=== PATIENT | female | born 1955 | race African-American/Black ===

== ENCOUNTER 2019-02-08 21:21 | Inpatient (IN) | payer MEDICAID ==
[~2019-02-08] VITALS: Ht 175.3 cm; Wt 181.4 kg
[~2019-02-08 21:21] MED LIST: ABILIFY2 MG ORAL; ACTOS30 MG ORAL; AMIODARONE HCL200 MG ORAL; AMITRIPTYLINE H10 MG ORAL; AMLODIPINE BESY10 MG ORAL; ASPIR 8181 MG ORAL; ATORVASTATIN CA10 MG ORAL; BENAZEPRIL HCL10 MG ORAL; CLOPIDOGREL75 MG ORAL; METHIMAZOLE5 MG PO; METOPROLOL TART50 M1 ORAL; PROAIR HFA8.5 GM INH; SPIRONOLACTONE25 MG ORAL; THIOTHIXENE10 MG PO; TYLENOL650 MG/20. ORAL
--- NOTE | 2019-02-08 21:26 | Emergency Room Report ---
History of Present Illness General Chief Complaint: General Complaint Source: Patient Present Illness HPI Patient is a 63-year-old female brought in by EMS after increased generalized weakness and body aches. Patient had recent episodes of nausea and diarrhea. Patient had prior history of diabetes as well as CVA. She been having multiple diarrheal stools. Patient was noted to be type II diabetic and is oral hypoglycemic agents. Patient was brought in by EMS. She had been started on IV fluids. She had prior history of hypertension Allergies: Coded Allergies: No Known Allergies (Unverified , 02/01/15) Patient History Past Medical History: see triage record Reviewed Nursing Documentation: PMH: Agreed; PSxH: Agreed Nursing Documentation-PMH Past Medical History: No History, Except For Hx Cardiac Problems: Yes Hx Hypertension: Yes Hx Asthma: Yes Hx COPD: Yes Hx Diabetes: Yes Hx Cancer: No Hx Gastrointestinal Problems: Yes Hx Neurological Problems: Yes Hx Cerebrovascular Accident: Yes - over 5 years ago Review of Systems All Other Systems: negative except mentioned in HPI Physical Exam Vital Signs Date Time Temp Pulse Resp B/P (MAP) Pulse Ox O2 Delivery O2 Flow Rate FiO2 02/08/19 21:16 98.4 85 18 105/66 (79) 96 Room Air General Appearance: alert, GCS 15, obese ENT: moist mucus membranes Neck: normal inspection Respiratory: normal inspection Cardiovascular #1: normal inspection, normal peripheral pulses, regular rate, rhythm Neurologic: normal inspection, alert, oriented x3, responsive, inpatient auditor III-XII nml as tested, speech normal, motor weakness - left leg Psychiatric: normal inspection Skin: normal inspection Medical Decision Making Diagnostic Impression: Primary Impression: Dehydration Additional Impressions: Diarrhea Morbid obesity with BMI of 50.0-59.9, adult Laboratory Tests Test 02/08/19 21:35 02/08/19 22:01 02/09/19 03:55 02/09/19 12:45 White Blood Count 11.7 K/UL (4.8-10.8) H 11.6 K/UL (4.8-10.8) H Red Blood Count 4.16 M/UL (4.20-5.40) L 4.02 M/UL (4.20-5.40) L Hemoglobin 10.7 G/DL (12.0-16.0) L 10.6 G/DL (12.0-16.0) L Hematocrit 35.2 % (37.0-47.0) L 34.4 % (37.0-47.0) L Mean Corpuscular Volume 85 FL (80-99) 86 FL (80-99) Mean Corpuscular Hemoglobin 25.7 PG (27.0-31.0) L 26.4 PG (27.0-31.0) L Mean Corpuscular Hemoglobin Concent 30.3 G/DL (32.0-36.0) L 30.8 G/DL (32.0-36.0) L Red Cell Distribution Width 16.9 % (11.6-14.8) H 17.2 % (11.6-14.8) H Platelet Count 188 K/UL (150-450) 183 K/UL (150-450) Mean Platelet Volume 8.6 FL (6.5-10.1) 9.1 FL (6.5-10.1) Neutrophils (%) (Auto) 58.1 % (45.0-75.0) 60.6 % (45.0-75.0) Lymphocytes (%) (Auto) 26.4 % (20.0-45.0) 26.1 % (20.0-45.0) Monocytes (%) (Auto) 9.5 % (1.0-10.0) 8.2 % (1.0-10.0) Eosinophils (%) (Auto) 4.2 % (0.0-3.0) H 4.5 % (0.0-3.0) H Basophils (%) (Auto) 1.9 % (0.0-2.0) 0.6 % (0.0-2.0) Sodium Level 142 MMOL/L (136-145) 139 MMOL/L (136-145) Potassium Level 3.6 MMOL/L (3.5-5.1) 3.6 MMOL/L (3.5-5.1) Chloride Level 105 MMOL/L (98-107) 105 MMOL/L (98-107) Carbon Dioxide Level 33 MMOL/L (21-32) H 28 MMOL/L (21-32) Anion Gap 4 mmol/L (5-15) L 6 mmol/L (5-15) Blood Urea Nitrogen 21 mg/dL (7-18) H 18 mg/dL (7-18) Creatinine 1.3 MG/DL (0.55-1.30) 1.0 MG/DL (0.55-1.30) Estimate Glomerular Filtration Rate 50.1 mL/min (>60) > 60 mL/min (>60) Glucose Level 107 MG/DL (74-106) H 92 MG/DL (74-106) Lactic Acid Level 1.30 mmol/L (0.4-2.0) Calcium Level 8.3 MG/DL (8.5-10.1) L 8.2 MG/DL (8.5-10.1) L Total Bilirubin 0.4 MG/DL (0.2-1.0) 0.3 MG/DL (0.2-1.0) Aspartate Amino Transferase (AST) 13 U/L (15-37) L 13 U/L (15-37) L Alanine Aminotransferase (ALT) 26 U/L (12-78) 20 U/L (12-78) Alkaline Phosphatase 66 U/L (46-116) 67 U/L (46-116) Total Creatine Kinase 18 U/L (26-308) L Creatine Kinase MB 0.5 NG/ML (0.0-3.6) Creatine Kinase MB Relative Index 2.7 Troponin I 0.001 ng/mL (0.000-0.056) 0.001 ng/mL (0.000-0.056) Total Protein 6.9 G/DL (6.4-8.2) 6.6 G/DL (6.4-8.2) Albumin 2.4 G/DL (3.4-5.0) L 2.4 G/DL (3.4-5.0) L Globulin 4.5 g/dL 4.2 g/dL Albumin/Globulin Ratio 0.5 (1.0-2.7) L 0.6 (1.0-2.7) L Urine Color Yellow Urine Appearance Slightly cloudy Urine pH 5 (4.5-8.0) Urine Specific [place] 1.020 (1.005-1.035) Urine Protein 2+ (NEGATIVE) H Urine Glucose (UA) Negative (NEGATIVE) Urine Ketones Negative (NEGATIVE) Urine Blood 1+ (NEGATIVE) H Urine Nitrite Negative (NEGATIVE) Urine Bilirubin Negative (NEGATIVE) Urine Urobilinogen Normal MG/DL (0.0-1.0) Urine Leukocyte Esterase 1+ (NEGATIVE) H Urine RBC 0-2 /HPF (0 - 2) Urine WBC 5-10 /HPF (0 - 2) H Urine Squamous Epithelial Cells Moderate /LPF (NONE/OCC) H Urine Bacteria Moderate /HPF (NONE) H Thyroid Stimulating Hormone (TSH) 1.383 uiU/mL (0.358-3.740) EKG Diagnostic Results Rate: normal Rhythm: NSR ST Segments: no acute changes Last Vital Signs Date Time Temp Pulse Resp B/P (MAP) Pulse Ox O2 Delivery O2 Flow Rate FiO2 02/08/19 21:16 98.4 85 18 105/66 (79) 96 Room Air Status: improved Disposition: ADMITTED INPATIENT Condition: Serious Raj Mays MD Feb 08, 2019 21:26
[2019-02-08 21:51] LABS: BASOPHILS % (AUTO) 1.9 % (0.0-2.0); EOSINOPHILS % (AUTO) 4.2 % (0.0-3.0); HEMATOCRIT 35.2 % (37.0-47.0); HEMOGLOBIN 10.7 G/DL (12.0-16.0); LYMPHOCYTES % (AUTO) 26.4 % (20.0-45.0); MEAN CORPUSCULAR VOLUME 85 FL (80-99); MONOCYTES % (AUTO) 9.5 % (1.0-10.0); NEUTROPHILS % (AUTO) 58.1 % (45.0-75.0); PLATELET COUNT 188 K/UL (150-450); RED BLOOD COUNT 4.16 M/UL (4.20-5.40); RED CELL DISTRIBUTION WIDTH 16.9 % (11.6-14.8); WHITE BLOOD COUNT 11.7 K/UL (4.8-10.8)
[2019-02-08 21:59] LABS: ANION GAP 4 mmol/L (5-15); BLOOD UREA NITROGEN 21 mg/dL (7-18); CALCIUM 8.3 MG/DL (8.5-10.1); CARBON DIOXIDE 33 MMOL/L (21-32); CHLORIDE 105 MMOL/L (98-107); CREATININE 1.3 MG/DL (0.55-1.30); POTASSIUM 3.6 MMOL/L (3.5-5.1); SODIUM 142 MMOL/L (136-145)
[2019-02-08 22:12] LABS: APPEARANCE,URINE SLIGHTLY CLOUDY; BILIRUBIN, URINE NEGATIVE (NEGATIVE); GLUCOSE, URINE (UA) NEGATIVE (NEGATIVE); KETONES,URINE NEGATIVE (NEGATIVE); LEUKOCYTE ESTERASE ,URINE 1+ (NEGATIVE); NITRITE,URINE NEGATIVE (NEGATIVE); PH,URINE 5 (4.5-8.0); PROTEIN,URINE 2+ (NEGATIVE); UROBILINOGEN,URINE NORMAL MG/DL (0.0-1.0)
[2019-02-08 22:14] LABS: COLOR,URINE YELLOW
[2019-02-08 22:20] LABS: ALANINE AMINOTRANSFERASE 26 U/L (12-78); ALBUMIN 2.4 G/DL (3.4-5.0); ALBUMIN/GLOBULIN RATIO 0.5 (1.0-2.7); ALKALINE PHOSPHATASE 66 U/L (46-116); ASPARTATE AMINO TRANSFERASE 13 U/L (15-37); BILIRUBIN,TOTAL 0.4 MG/DL (0.2-1.0); CKMB 0.5 NG/ML (0.0-3.6); CREATINE KINASE 18 U/L (26-308)
[2019-02-08] MEDS ORDERED: D5 1/2NS w/KCl 20mEq 1,000 ML IV SCH (22:30)
[2019-02-08 22:55] VITALS: BP 105/66
--- NOTE | 2019-02-08 22:55 | NUR ---
ER Nurse Note: Pt BIBA from home c/o flu like symptoms since a few weeks. Pt a&ox4, VSS, no signs of acute distress. Pt stated she has generalized body pain, cough, chest pain related to cough. Pt stated she cannot walk; bed bound. IV established by EMS; patent. Skin intact. All safety measures met; will conitnue to monitor.
[2019-02-09] VITALS (7 sets, daily range): BP systolic 107–137; BP diastolic 55–72
[2019-02-09] MEDS ORDERED: cefTRIAXone 1 GM in NS 55 ML IVPB ONE (00:30)
--- NOTE | 2019-02-09 00:30 | NUR ---
ER Nurse Note: All orders completed per ERMD orders. Phone was provided to pt; pt called family. All safety measures met; will continue to monitor.
--- NOTE | 2019-02-09 01:12 | NUR ---
NURSE NOTES: Patient brought up from ER to [facility] rm 241-1 via stretcher accompanied by PEPPER Soriano and lidar technician. Routine Admission care provided. Patient is alert, verbally responsive, able to make needs known. denies any pain at this time. On room air with Sp02 98%. Bed is in lowest position. Placed purewick to patient and educted on how it works. IV site noted to right AC 18G and is intact. Call light is within easy reach. Will continue to monitor.
--- NOTE | 2019-02-09 01:15 | NUR ---
ER Nurse Note: Report given to PEPPER Ware in SDU for continuity of care. Pt a&ox4, VSS, no signs of distress. All belongings taken.
[2019-02-09] MEDS: Acetaminophen 500mg (ES) tab ORAL PRN ×2 (05:16→14:43)
[2019-02-09 05:42] LABS: BASOPHILS % (AUTO) 0.6 % (0.0-2.0); EOSINOPHILS % (AUTO) 4.5 % (0.0-3.0); HEMATOCRIT 34.4 % (37.0-47.0); HEMOGLOBIN 10.6 G/DL (12.0-16.0); LYMPHOCYTES % (AUTO) 26.1 % (20.0-45.0); MEAN CORPUSCULAR VOLUME 86 FL (80-99); MONOCYTES % (AUTO) 8.2 % (1.0-10.0); NEUTROPHILS % (AUTO) 60.6 % (45.0-75.0); PLATELET COUNT 183 K/UL (150-450); RED BLOOD COUNT 4.02 M/UL (4.20-5.40); RED CELL DISTRIBUTION WIDTH 17.2 % (11.6-14.8); WHITE BLOOD COUNT 11.6 K/UL (4.8-10.8)
[2019-02-09 06:26] LABS: ALANINE AMINOTRANSFERASE 20 U/L (12-78); ALBUMIN 2.4 G/DL (3.4-5.0); ALBUMIN/GLOBULIN RATIO 0.6 (1.0-2.7); ALKALINE PHOSPHATASE 67 U/L (46-116); ANION GAP 6 mmol/L (5-15); ASPARTATE AMINO TRANSFERASE 13 U/L (15-37); BILIRUBIN,TOTAL 0.3 MG/DL (0.2-1.0); BLOOD UREA NITROGEN 18 mg/dL (7-18); CALCIUM 8.2 MG/DL (8.5-10.1); CARBON DIOXIDE 28 MMOL/L (21-32); CHLORIDE 105 MMOL/L (98-107); POTASSIUM 3.6 MMOL/L (3.5-5.1); SODIUM 139 MMOL/L (136-145)
--- NOTE | 2019-02-09 07:40 | NUR ---
NURSE NOTES: Received report PEPPER [place],patient asleep,arousable,head 30 degrees,on IV NS 75 ml/hr,patient had diarrhea at home,here for Dehydration,NPO
--- NOTE | 2019-02-09 07:40 | NUR ---
HAND-OFF: Report given to PEPPER Lopez .
--- NOTE | 2019-02-09 08:25 | NUR ---
NURSE NOTES: Dr. Arce called will see patient,patient no diarrhea,denies nausea
--- NOTE | 2019-02-09 08:29 | NUR ---
NURSE NOTES: Dr. Durant visited patient
--- NOTE | 2019-02-09 09:20 | General Progress Note ---
Assessment/Plan Problem List: (1) Anemia ICD Codes: D64.9 - Anemia, unspecified SNOMED: 828753035 (2) Diarrhea ICD Codes: R19.7 - Diarrhea, unspecified SNOMED: 48741894 (3) Hypertension ICD Codes: I10 - Essential (primary) hypertension SNOMED: 91900985 (4) Morbid obesity with BMI of 50.0-59.9, adult ICD Codes: E66.01 - Morbid (severe)obesity due to excess calories; Z68.43 - Body mass index (bmi) 50-59.9 , adult SNOMED: 465766411 (5) Tobacco abuse ICD Codes: Z72.0 - Tobacco use SNOMED: 56539698 (6) Diabetes ICD Codes: E11.9 - Type 2 diabetes mellitus without complications SNOMED: 57100411 Assessment/Plan: stool studies Anemia work up advance diet fu cardiology recs GI procedures if needed Subjective ROS Limited/Unobtainable: Yes Allergies: Coded Allergies: No Known Allergies (Unverified , 02/01/15) Objective Last 24 Hour Vital Signs Date Time Temp Pulse Resp B/P (MAP) Pulse Ox O2 Delivery O2 Flow Rate FiO2 02/09/19 04:00 Room Air 02/09/19 04:00 97.5 63 20 131/55 (80) 96 02/09/19 01:53 66 02/09/19 01:51 Room Air 02/09/19 01:25 98.1 68 20 107/66 (80) 98 02/09/19 01:15 98.4 60 18 108/61 98 Room Air 02/09/19 01:15 98.4 60 18 108/61 98 Room Air 02/08/19 22:55 98.4 85 18 105/66 96 Room Air 02/08/19 22:55 85 18 Room Air 02/08/19 21:16 98.4 85 18 105/66 (79) 96 Room Air Intake and Output 02/08/19 02/09/19 19:00 07:00 Intake Total 4323.75 ml Balance 4323.75 ml Intake IV Total 4323.75 ml # Voids 4 Laboratory Tests 02/08/19 21:35: White Blood Count 11.7H, Red Blood Count 4.16L, Hemoglobin 10.7L, Hematocrit 35.2L, Mean Corpuscular Volume 85, Mean Corpuscular Hemoglobin 25.7L, Mean Corpuscular Hemoglobin Concent 30.3L, Red Cell Distribution Width 16.9H, Platelet Count 188, Mean Platelet Volume 8.6, Neutrophils (%) (Auto) 58.1, Lymphocytes (%) (Auto) 26.4, Monocytes (%) (Auto) 9.5, Eosinophils (%) (Auto) 4.2H, Basophils (%) (Auto) 1.9, Sodium Level 142, Potassium Level 3.6, Chloride Level 105, Carbon Dioxide Level 33H, Anion Gap 4L, Blood Urea Nitrogen 21H, Creatinine 1.3, Estimat Glomerular Filtration Rate 50.1, Glucose Level 107H, Lactic Acid Level 1.30, Calcium Level 8.3L, Total Bilirubin 0.4, Aspartate Amino Transf (AST/SGOT) 13L, Alanine Aminotransferase (ALT/SGPT) 26, Alkaline Phosphatase 66, Total Creatine Kinase 18L, Creatine Kinase MB 0.5, Creatine Kinase MB Relative Index 2.7, Troponin I 0.001, Total Protein 6.9, Albumin 2.4L , Globulin 4.5, Albumin/Globulin Ratio 0.5L 02/08/19 22:01: Urine Color Yellow, Urine Appearance Slightly cloudy, Urine pH 5, Urine Specific [place] 1.020, Urine Protein 2+H, Urine Glucose (UA) Negative, Urine Ketones Negative, Urine Blood 1+H, Urine Nitrite Negative, Urine Bilirubin Negative, Urine Urobilinogen Normal, Urine Leukocyte Esterase 1+H, Urine RBC 0-2 , Urine WBC 5-10H, Urine Squamous Epithelial Cells ModerateH, Urine Bacteria ModerateH 02/09/19 03:55: White Blood Count 11.6H, Red Blood Count 4.02L, Hemoglobin 10.6L, Hematocrit 34.4L, Mean Corpuscular Volume 86, Mean Corpuscular Hemoglobin 26.4L, Mean Corpuscular Hemoglobin Concent 30.8L, Red Cell Distribution Width 17.2H, Platelet Count 183, Mean Platelet Volume 9.1, Neutrophils (%) (Auto) 60.6, Lymphocytes (%) (Auto) 26.1, Monocytes (%) (Auto) 8.2, Eosinophils (%) (Auto) 4.5H, Basophils (%) (Auto) 0.6, Sodium Level 139, Potassium Level 3.6, Chloride Level 105, Carbon Dioxide Level 28, Anion Gap 6, Blood Urea Nitrogen 18, Creatinine 1.0, Estimat Glomerular Filtration Rate > 60, Glucose Level 92, Calcium Level 8.2L, Total Bilirubin 0.3, Aspartate Amino Transf (AST/SGOT) 13L, Alanine Aminotransferase (ALT/SGPT) 20, Alkaline Phosphatase 67, Total Protein 6.6, Albumin 2.4L, Globulin 4.2, Albumin/Globulin Ratio 0.6L Height (Feet): 5 Height (Inches): 9.00 Weight (Pounds): 400 General Appearance: alert EENT: normal ENT inspection Neck: supple Cardiovascular: normal rate Respiratory/Chest: decreased breath sounds Abdomen: normal bowel sounds, non tender, soft Extremities: non-tender Faisal Durant MD Feb 09, 2019 09:20
--- NOTE | 2019-02-09 10:47 | NUR ---
CASE MANAGEMENT: INITIAL REVIEW 63 YO F YVETTE FROM HOME CC: FLU LIKE SYMPTOMS PMHx: HTN. ASTHMA. COPD. DM. CVA. SI:DEHYDRATION T 98.4 HR 85 RR 18 B/P 105/66 SATS 96% ON RA WBC 11.7 CO2 33 BUN 21 GLU 107 CA 8.3 AST 13 TOTAL CK 18 IS: NS BOLUS X1 D51/2NS W/ KCL X1 PATIENT ADMITTED TO SDU 02/08/2019 @ 4300 DCP: PATIENT TO BE DISCHARGED TO HOME ONCE MEDICALLY CLEARED. PLAN OF CARE: VENOUS DUPLEX WOUND CARE Addendum: 02/09/19 at 1423 by Bekah Mckeon CM INTERQUAL MET
--- NOTE | 2019-02-09 12:18 | Cardiac Electrophysiology PN ---
Subjective Subjective [id number] Objective Last 24 Hour Vital Signs Date Time Temp Pulse Resp B/P (MAP) Pulse Ox O2 Delivery O2 Flow Rate FiO2 02/09/19 04:00 Room Air 02/09/19 04:00 97.5 63 20 131/55 (80) 96 02/09/19 01:53 66 02/09/19 01:51 Room Air 02/09/19 01:25 98.1 68 20 107/66 (80) 98 02/09/19 01:15 98.4 60 18 108/61 98 Room Air 02/09/19 01:15 98.4 60 18 108/61 98 Room Air 02/08/19 22:55 98.4 85 18 105/66 96 Room Air 02/08/19 22:55 85 18 Room Air 02/08/19 21:16 98.4 85 18 105/66 (79) 96 Room Air Intake and Output 02/08/19 02/09/19 19:00 07:00 Intake Total 4323.75 ml Balance 4323.75 ml Intake IV Total 4323.75 ml # Voids 4 Laboratory Tests Test 02/08/19 21:35 02/08/19 22:01 02/09/19 03:55 White Blood Count 11.7 K/UL (4.8-10.8) H 11.6 K/UL (4.8-10.8) H Red Blood Count 4.16 M/UL (4.20-5.40) L 4.02 M/UL (4.20-5.40) L Hemoglobin 10.7 G/DL (12.0-16.0) L 10.6 G/DL (12.0-16.0) L Hematocrit 35.2 % (37.0-47.0) L 34.4 % (37.0-47.0) L Mean Corpuscular Volume 85 FL (80-99) 86 FL (80-99) Mean Corpuscular Hemoglobin 25.7 PG (27.0-31.0) L 26.4 PG (27.0-31.0) L Mean Corpuscular Hemoglobin Concent 30.3 G/DL (32.0-36.0) L 30.8 G/DL (32.0-36.0) L Red Cell Distribution Width 16.9 % (11.6-14.8) H 17.2 % (11.6-14.8) H Platelet Count 188 K/UL (150-450) 183 K/UL (150-450) Mean Platelet Volume 8.6 FL (6.5-10.1) 9.1 FL (6.5-10.1) Neutrophils (%) (Auto) 58.1 % (45.0-75.0) 60.6 % (45.0-75.0) Lymphocytes (%) (Auto) 26.4 % (20.0-45.0) 26.1 % (20.0-45.0) Monocytes (%) (Auto) 9.5 % (1.0-10.0) 8.2 % (1.0-10.0) Eosinophils (%) (Auto) 4.2 % (0.0-3.0) H 4.5 % (0.0-3.0) H Basophils (%) (Auto) 1.9 % (0.0-2.0) 0.6 % (0.0-2.0) Sodium Level 142 MMOL/L (136-145) 139 MMOL/L (136-145) Potassium Level 3.6 MMOL/L (3.5-5.1) 3.6 MMOL/L (3.5-5.1) Chloride Level 105 MMOL/L (98-107) 105 MMOL/L (98-107) Carbon Dioxide Level 33 MMOL/L (21-32) H 28 MMOL/L (21-32) Anion Gap 4 mmol/L (5-15) L 6 mmol/L (5-15) Blood Urea Nitrogen 21 mg/dL (7-18) H 18 mg/dL (7-18) Creatinine 1.3 MG/DL (0.55-1.30) 1.0 MG/DL (0.55-1.30) Estimat Glomerular Filtration Rate 50.1 mL/min (>60) > 60 mL/min (>60) Glucose Level 107 MG/DL (74-106) H 92 MG/DL (74-106) Lactic Acid Level 1.30 mmol/L (0.4-2.0) Calcium Level 8.3 MG/DL (8.5-10.1) L 8.2 MG/DL (8.5-10.1) L Total Bilirubin 0.4 MG/DL (0.2-1.0) 0.3 MG/DL (0.2-1.0) Aspartate Amino Transf (AST/SGOT) 13 U/L (15-37) L 13 U/L (15-37) L Alanine Aminotransferase (ALT/SGPT) 26 U/L (12-78) 20 U/L (12-78) Alkaline Phosphatase 66 U/L (46-116) 67 U/L (46-116) Total Creatine Kinase 18 U/L (26-308) L Creatine Kinase MB 0.5 NG/ML (0.0-3.6) Creatine Kinase MB Relative Index 2.7 Troponin I 0.001 ng/mL (0.000-0.056) Total Protein 6.9 G/DL (6.4-8.2) 6.6 G/DL (6.4-8.2) Albumin 2.4 G/DL (3.4-5.0) L 2.4 G/DL (3.4-5.0) L Globulin 4.5 g/dL 4.2 g/dL Albumin/Globulin Ratio 0.5 (1.0-2.7) L 0.6 (1.0-2.7) L Urine Color Yellow Urine Appearance Slightly cloudy Urine pH 5 (4.5-8.0) Urine Specific [place] 1.020 (1.005-1.035) Urine Protein 2+ (NEGATIVE) H Urine Glucose (UA) Negative (NEGATIVE) Urine Ketones Negative (NEGATIVE) Urine Blood 1+ (NEGATIVE) H Urine Nitrite Negative (NEGATIVE) Urine Bilirubin Negative (NEGATIVE) Urine Urobilinogen Normal MG/DL (0.0-1.0) Urine Leukocyte Esterase 1+ (NEGATIVE) H Urine RBC 0-2 /HPF (0 - 2) Urine WBC 5-10 /HPF (0 - 2) H Urine Squamous Epithelial Cells Moderate /LPF (NONE/OCC) H Urine Bacteria Moderate /HPF (NONE) H Ian Kaminski MD Feb 09, 2019 12:18
--- NOTE | 2019-02-09 13:30 | NUR ---
NURSE NOTES: Received pt from PEPPER Lopez in stable condition. Pt is AAOx4 on RA, SB-SR on nursing instructor. Skin alterations noted. Pt has a pruewick draining yellow urine. RAC 18g IV noted running NS at 75cc/hr. Bed is in lowest position with side rails up x 3, call light within reach and bed alarm on, will continue to monitor pt.
--- NOTE | 2019-02-09 13:30 | NUR ---
HAND-OFF: Report given to PEPPER Laboy,stable,no Chest pain ,no Shortness breath,No diarrhea, I spoke to son and patient what medications taking at home,with list-given to PEPPER Laboy,Dr. Kaminski and notified patients medications.
--- NOTE | 2019-02-09 13:58 | Consultation ---
Consult Note Consult Note asked to eval for proteinuria Patient is a 63-year-old female brought in by EMS after increased generalized weakness and body aches. Patient had recent episodes of nausea and diarrhea. Patient had prior history of diabetes as well as CVA. She been having multiple diarrheal stools. Patient was noted to be type II diabetic and is oral hypoglycemic agents. Patient was brought in by EMS. She had been started on IV fluids. She had prior history of hypertension No Known Allergies (Unverified , 02/01/15) Past Medical History: No History, Except For Hx Cardiac Problems: Yes Hx Hypertension: Yes Hx Asthma: Yes Hx COPD: Yes Hx Diabetes: Yes Hx Gastrointestinal Problems: Yes Hx Neurological Problems: Yes Hx Cerebrovascular Accident: Yes - over 5 years ago interviewed examined data reviewed . Assessment/Plan Proteinuria ? Hypoalbuminemia Morbid obesity - r/o Diabetic nephropathy CAD Anemia HTN Smoker plan; 24 H urine protein keep BP and BS in check continue per consultants Anemia Richy Ta MD Feb 09, 2019 13:58
--- NOTE | 2019-02-09 14:18 | NUR ---
NURSE NOTES: Dr. Valero and Dr. Mauro notified,DVT R leg
--- NOTE | 2019-02-09 14:42 | NUR ---
*-* INSURANCE *-* ALL CLINICALS AND REVIEWS HAVE BEEN FAXED TO: [employer] S/W SHERYL S @ [phone] (SHARED RISK) [employer] WILL ONLY HANDLE THE PROF COMP PLEASE FAX THE REVIEW ONLY FX: [phone]....REVIEW & CLINICAL & F/S FAXED TO DEANNE/FLORIAN S/W TARI D @ [phone]..OPT-3 (AUTH# [id number]) NO LABORER LABORATORY ASSIGNED AT THIS TIME PLEASE FAX THE REVIEW/CLINICAL FX: [phone]...REVIEW/CLINICAL Addendum: 02/10/19 at 1100 by MOE CUBA CM REF# [id number]
--- NOTE | 2019-02-09 14:59 | Diagnostic Imaging Report ---
Indication: Shortness of breath Technique: One view of the chest Comparison: 02/01/2015 Findings: Body habitus limits evaluation. Less optimal inspiration currently. The heart is borderline enlarged. There is bilateral interstitial congestion. Impression: Borderline cardiomegaly. Mild pulmonary interstitial congestion. Correlate with clinical findings
[2019-02-09] MEDS ORDERED: METOPROLOL TART50 M1 ORAL (15:08)
[2019-02-09] MEDS ORDERED: NORVASC10 MG ORAL (15:13)
--- NOTE | 2019-02-09 15:20 | NUR ---
NURSE NOTES:WOUND CARE NOTES: Morbidly obese female whom presented on admission with partial thickness pressure injury l ischium.posterior L thigh . #2 partial thickness pressure injuries noted in close proximity (proximal wound)(L)1.5cm x (W)1cm. Base of wound moist and viable.Edges adherent with darker skin tone with shearing periwound. (inferior wound) (L)0.5cm x (W)0.5cm. Base of wound is moist and viable with additional shearing with darker skin tone periwound. Skin folds bilat breasts ,abdominal folds both groin areas and sacrum assessed and no areas of skin breakdwon noted .Pt denied pain or tenderness when sacral area palpated. Both heels are dry and callused without signs of skin breakdown. Tx.Plan: Cleanse wounds L ischium/Posterior upper L thigh with Saline. Apply Triad paste . Cover with Optifoam drsg. Change every 3 days and prn. Apply Moisture Barrier Paste to to abdominal folds, both groin areas and both ischail areas with each perineal care. Apply Moisture Barrier Paste to sacrum. Cover with Optifoam drsg. Change every 3 days and prn. Barrier Bed with APM mattress. Apply Cavilon SKin BArrier to both heels. Cover each heel with Optifoam drsg. Change every 7 days and prn. Reposition at least every 2hours or as tolerated. Off-load heels with pillows
--- NOTE | 2019-02-09 15:20 | Cardiology Report ---
APPROVED REPORT EXAM: Two-dimensional and M-mode echocardiogram with Doppler and color Doppler. INDICATION Chest Pain M-Mode DIMENSIONS IVSd1.8 (0.7-1.1cm)Left Atrium (MM)3.8 (1.6-4.0cm) LVDd5.3 (3.5-5.6cm)Aortic Root3.1 (2.0-3.7cm) PWd1.8 (0.7-1.1cm)Aortic Cusp Exc.2.2 (1.5-2.0cm) IVSs2.6 cm LVDs3.7 (2.5-4.0cm) PWs2.6 cm Technically difficult and limited study due to patient body habitus. Study quality precludes accurate assessment of regional wall motion. Normal left ventricular chamber size, systolic function and wall motion to extent visualized. Left ventricular ejection fraction estimated to be 55 %. Mild left ventricular hypertrophy. Anterior Echo-free space, may be due to pericardial fat or effusion. All other cardiac chamber sizes are within normal limits. Focal aortic valve sclerosis with adequate cusp excursion. Thickened mitral valve leaflets with normal excursion. Mitral annulus and aortic root calcification. Pulmonic valve not well visualized. Normal tricuspid valve structure. Subcostal views not obtainable. A color flow and spectral Doppler study was performed and revealed: Mild aortic regurgitation. No mitral regurgitation. Mitral diastolic velocities suggest mild left ventricular diastolic dysfunction (Grade I). Trace tricuspid regurgitation. Tricuspid systolic velocities suggests peak right ventricular systolic pressure of 14 mmHg. No pulmonic regurgitation present.
--- NOTE | 2019-02-09 15:24 | Cardiology Report ---
APPROVED REPORT EKG Measurement Heart [id number] Sinus bradycardia Low voltage QRS Cannot rule out Anterior infarct, age undetermined Abnormal ECG
[2019-02-09] MEDS ORDERED: GABAPENTIN100 MG ORAL (16:13)
[2019-02-09] MEDS ORDERED: LOSARTAN POTAS100 MG ORAL (16:13)
--- NOTE | 2019-02-09 16:30 | Consultation ---
DATE OF CONSULTATION: 02/09/2019 INFECTIOUS DISEASE CONSULT: CONSULTING PHYSICIAN: Jack Andrews M.D. PRIMARY ATTENDING: Kiki Valero M.D. REASON FOR CONSULT: UTI. HISTORY OF PRESENT ILLNESS: The patient is a 63-year-old female admitted last evening complaining of generalized body pain, weakness, says that she had recent visit to the ER because of shortness of breath 4 days before the day of admission, got prednisone that helped her. She had diarrhea. At the time of admission had borderline leukocytosis. PAST MEDICAL HISTORY: Diabetes mellitus type 2. The patient is status post CVA 5 years ago. Since 2 years ago, cannot walk. Has hypertension, COPD, coronary artery disease, has history of depression, anxiety, morbid obesity. ALLERGIES: No known drug allergy. MEDICATIONS: Sodium chloride, Tylenol. Got a dose of ceftriaxone. SOCIAL HISTORY: Single, lives at home. She is an ex-smoker. Has 5 children. Denies alcohol, drug abuse. REVIEW OF SYSTEMS: Has pain in head, chest, back. No fever. No coughing. No nausea. No vomiting or diarrhea. No difficulty of passing urine. PHYSICAL EXAMINATION: VITAL SIGNS: Temperature 97.5, pulse 63, blood pressure 131/55. GENERAL APPEARANCE: No acute distress. Morbidly obese. HEAD AND NECK: [place] conjunctivae. Dry mouth. HEART: Normal rate. LUNGS: Clear. ABDOMEN: Soft, nontender. EXTREMITIES: Mild pre ankle edema. NEUROLOGIC: She is awake, alert, oriented x3. Has weakness in the left side of the body. LABORATORY DATA: WBC 11.6, hemoglobin 10.6, hematocrit 34.4, platelets 183. Sodium 139, potassium 3.6, chloride 105, bicarb 28, BUN 18, creatinine 1. BUN at the time of admission was 21 and creatinine 1.3. Albumin 2.4. UA showed wbc's of 5 to 10, 1+ blood. IMPRESSION: Mild pyuria, may have UTI. The patient seems to have gastroenteritis with dehydration. Has diabetes mellitus, COPD, anemia, history of hypertension, history of coronary artery disease, history of CVA. RECOMMENDATION: We will follow up the cultures. We will continue with ceftriaxone. We will follow up the chest x-ray. At the end of my exam, I thank Dr. Valero for involving me in the care of this patient. Jack Andrews M.D. DR: BEATA JOB#: [id number] CC:
--- NOTE | 2019-02-09 16:38 | Consultation ---
History of Present Illness General Chief Complaint: General Complaint Present Illness Allergies: Coded Allergies: No Known Allergies (Unverified , 02/01/15) Medication History Scheduled Amiodarone Hcl* (Cordarone*), 200 MG ORAL DAILY, (Reported) Amitriptyline Hcl* (Amitriptyline Hcl*), 10 MG ORAL BEDTIME, (Reported) Amlodipine Besylate (Norvasc), 10 MG ORAL DAILY, (Reported) Aripiprazole* (Abilify*), 2 MG ORAL DAILY, (Reported) Aspirin* (Aspir 81*), 81 MG ORAL DAILY, (Reported) Atorvastatin Calcium* (Lipitor*), 10 MG ORAL BEDTIME, (Reported) Benazepril Hcl* (Benazepril Hcl*), 10 MG ORAL DAILY, (Reported) Clopidogrel* (Clopidogrel*), 75 MG ORAL DAILY, (Reported) Gabapentin* (Gabapentin*), 100 MG ORAL BID, (Reported) Losartan Potassium (Losartan Potassium), 50 MG ORAL BID, (Reported) Metoprolol Tartrate* (Metoprolol Tartrate*), 75 MG ORAL BID, (Reported) Patient History Healthcare decision maker Resuscitation status Full Code Advanced Directive on File Physical Exam Last 24 Hour Vital Signs Date Time Temp Pulse Resp B/P (MAP) Pulse Ox O2 Delivery O2 Flow Rate FiO2 02/09/19 12:00 56 02/09/19 12:00 Room Air 02/09/19 12:00 98.6 61 20 134/72 (92) 94 02/09/19 08:00 97.5 61 20 122/69 (86) 96 02/09/19 08:00 Room Air 02/09/19 07:53 61 02/09/19 04:00 Room Air 02/09/19 04:00 97.5 63 20 131/55 (80) 96 02/09/19 01:53 66 02/09/19 01:51 Room Air 02/09/19 01:25 98.1 68 20 107/66 (80) 98 02/09/19 01:15 98.4 60 18 108/61 98 Room Air 02/09/19 01:15 98.4 60 18 108/61 98 Room Air 02/08/19 22:55 98.4 85 18 105/66 96 Room Air 02/08/19 22:55 85 18 Room Air 02/08/19 21:16 98.4 85 18 105/66 (79) 96 Room Air Intake and Output 02/08/19 02/09/19 18:59 06:59 Intake Total 4323.75 ml Balance 4323.75 ml Intake IV Total 4323.75 ml # Voids 4 Laboratory Tests Test 02/08/19 21:35 02/08/19 22:01 02/09/19 03:55 02/09/19 12:45 White Blood Count 11.7 K/UL (4.8-10.8) H 11.6 K/UL (4.8-10.8) H Red Blood Count 4.16 M/UL (4.20-5.40) L 4.02 M/UL (4.20-5.40) L Hemoglobin 10.7 G/DL (12.0-16.0) L 10.6 G/DL (12.0-16.0) L Hematocrit 35.2 % (37.0-47.0) L 34.4 % (37.0-47.0) L Mean Corpuscular Volume 85 FL (80-99) 86 FL (80-99) Mean Corpuscular Hemoglobin 25.7 PG (27.0-31.0) L 26.4 PG (27.0-31.0) L Mean Corpuscular Hemoglobin Concent 30.3 G/DL (32.0-36.0) L 30.8 G/DL (32.0-36.0) L Red Cell Distribution Width 16.9 % (11.6-14.8) H 17.2 % (11.6-14.8) H Platelet Count 188 K/UL (150-450) 183 K/UL (150-450) Mean Platelet Volume 8.6 FL (6.5-10.1) 9.1 FL (6.5-10.1) Neutrophils (%) (Auto) 58.1 % (45.0-75.0) 60.6 % (45.0-75.0) Lymphocytes (%) (Auto) 26.4 % (20.0-45.0) 26.1 % (20.0-45.0) Monocytes (%) (Auto) 9.5 % (1.0-10.0) 8.2 % (1.0-10.0) Eosinophils (%) (Auto) 4.2 % (0.0-3.0) H 4.5 % (0.0-3.0) H Basophils (%) (Auto) 1.9 % (0.0-2.0) 0.6 % (0.0-2.0) Sodium Level 142 MMOL/L (136-145) 139 MMOL/L (136-145) Potassium Level 3.6 MMOL/L (3.5-5.1) 3.6 MMOL/L (3.5-5.1) Chloride Level 105 MMOL/L (98-107) 105 MMOL/L (98-107) Carbon Dioxide Level 33 MMOL/L (21-32) H 28 MMOL/L (21-32) Anion Gap 4 mmol/L (5-15) L 6 mmol/L (5-15) Blood Urea Nitrogen 21 mg/dL (7-18) H 18 mg/dL (7-18) Creatinine 1.3 MG/DL (0.55-1.30) 1.0 MG/DL (0.55-1.30) Estimat Glomerular Filtration Rate 50.1 mL/min (>60) > 60 mL/min (>60) Glucose Level 107 MG/DL (74-106) H 92 MG/DL (74-106) Lactic Acid Level 1.30 mmol/L (0.4-2.0) Calcium Level 8.3 MG/DL (8.5-10.1) L 8.2 MG/DL (8.5-10.1) L Total Bilirubin 0.4 MG/DL (0.2-1.0) 0.3 MG/DL (0.2-1.0) Aspartate Amino Transf (AST/SGOT) 13 U/L (15-37) L 13 U/L (15-37) L Alanine Aminotransferase (ALT/SGPT) 26 U/L (12-78) 20 U/L (12-78) Alkaline Phosphatase 66 U/L (46-116) 67 U/L (46-116) Total Creatine Kinase 18 U/L (26-308) L Creatine Kinase MB 0.5 NG/ML (0.0-3.6) Creatine Kinase MB Relative Index 2.7 Troponin I 0.001 ng/mL (0.000-0.056) 0.001 ng/mL (0.000-0.056) Total Protein 6.9 G/DL (6.4-8.2) 6.6 G/DL (6.4-8.2) Albumin 2.4 G/DL (3.4-5.0) L 2.4 G/DL (3.4-5.0) L Globulin 4.5 g/dL 4.2 g/dL Albumin/Globulin Ratio 0.5 (1.0-2.7) L 0.6 (1.0-2.7) L Urine Color Yellow Urine Appearance Slightly cloudy Urine pH 5 (4.5-8.0) Urine Specific [place] 1.020 (1.005-1.035) Urine Protein 2+ (NEGATIVE) H Urine Glucose (UA) Negative (NEGATIVE) Urine Ketones Negative (NEGATIVE) Urine Blood 1+ (NEGATIVE) H Urine Nitrite Negative (NEGATIVE) Urine Bilirubin Negative (NEGATIVE) Urine Urobilinogen Normal MG/DL (0.0-1.0) Urine Leukocyte Esterase 1+ (NEGATIVE) H Urine RBC 0-2 /HPF (0 - 2) Urine WBC 5-10 /HPF (0 - 2) H Urine Squamous Epithelial Cells Moderate /LPF (NONE/OCC) H Urine Bacteria Moderate /HPF (NONE) H Thyroid Stimulating Hormone (TSH) 1.383 uiU/mL (0.358-3.740) Height (Feet): 5 Height (Inches): 9.00 Weight (Pounds): 400 Medications Current Medications Medications (Trade) Dose Ordered Sig/Lora Route PRN Reason Start Time Stop Time Status Last Admin Dose Admin Acetaminophen (Tylenol) 500 mg Q4H PRN ORAL Mild Pain/Temp > 100.5 02/09/19 02:00 03/11/19 01:59 02/09/19 14:43 Amlodipine Besylate (Norvasc) 10 mg DAILY ORAL 02/10/19 09:00 03/12/19 08:59 Apixaban (Eliquis) 10 mg BID ORAL 02/09/19 18:00 03/11/19 17:59 Aspirin (Ecotrin) 81 mg DAILY ORAL 02/10/19 09:00 03/12/19 08:59 Atorvastatin Calcium (Lipitor) 20 mg BEDTIME ORAL 02/09/19 21:00 03/11/19 20:59 Ceftriaxone Sodium 1 gm/ Dextrose 55 ml @ 110 mls/hr Q24H IVPB 02/09/19 22:00 02/16/19 21:59 Famotidine (Pepcid) 20 mg BID ORAL 02/09/19 18:00 03/11/19 17:59 Losartan Potassium (Cozaar) 50 mg EVERY 12 HOURS ORAL 02/09/19 21:00 03/11/19 20:59 Metoprolol Tartrate (Lopressor) 50 mg Q12HR ORAL 02/09/19 21:00 03/11/19 20:59 Ondansetron HCl (Zofran) 4 mg Q6H PRN IVP Nausea & Vomiting 02/09/19 02:00 03/11/19 01:59 Sodium Chloride 1,000 ml @ 75 mls/hr [id number] IV 02/09/19 03:00 03/11/19 02:59 02/09/19 02:25 Assessment/Plan Assessment/Plan: Hematology Consultation Chief Complaint: General Complaint REQ MD: Kiki Valero RFC: Anemia and eosinophilia dos; 02/09/19 HPI Patient is a 63-year-old female brought in by EMS after increased generalized weakness and body aches. Patient had recent episodes of nausea and diarrhea. Patient had prior history of diabetes as well as CVA. She been having multiple diarrheal stools. Patient was noted to be type II diabetic and is oral hypoglycemic agents. Patient was brought in by EMS. She had been started on IV fluids. She had prior history of hypertension, heme was consulted for anemia and eosinophilia. Allergies: No Known Allergies (Unverified , 02/01/15) Past Medical History: see triage record Reviewed Nursing Documentation: PMH: Agreed; PSxH: Agreed Past Medical History: No History, Except For Hx Cardiac Problems: Yes Hx Hypertension: Yes Hx Asthma: Yes Hx COPD: Yes Hx Diabetes: Yes Hx Cancer: No Hx Gastrointestinal Problems: Yes Hx Neurological Problems: Yes Hx Cerebrovascular Accident: Yes - over 5 years ago Review of Systems: negative except mentioned in HPI Vital Signs Date Time Temp Pulse Resp B/P (MAP) Pulse Ox O2 Delivery O2 Flow Rate FiO2 02/08/19 21:16 98.4 85 18 105/66 (79) 96 Room Air Physical Exam: Vitals: reviewed General Appearance: NAD HEENT: normocephalic, atraumatic Neck: non-tender, normal alignment Respiratory/Chest: normal breath sounds bilaterally Cardiovascular/Chest: normal peripheral pulses, normal rate Abdomen: normal bowel sounds, soft, nontender Extremities: normal range of motion Laboratory Tests Test 02/08/19 21:35 02/08/19 22:01 02/09/19 03:55 02/09/19 12:45 White Blood Count 11.7 K/UL (4.8-10.8) H 11.6 K/UL (4.8-10.8) H Red Blood Count 4.16 M/UL (4.20-5.40) L 4.02 M/UL (4.20-5.40) L Hemoglobin 10.7 G/DL (12.0-16.0) L 10.6 G/DL (12.0-16.0) L Hematocrit 35.2 % (37.0-47.0) L 34.4 % (37.0-47.0) L Mean Corpuscular Volume 85 FL (80-99) 86 FL (80-99) Mean Corpuscular Hemoglobin 25.7 PG (27.0-31.0) L 26.4 PG (27.0-31.0) L Mean Corpuscular Hemoglobin Concent 30.3 G/DL (32.0-36.0) L 30.8 G/DL (32.0-36.0) L Red Cell Distribution Width 16.9 % (11.6-14.8) H 17.2 % (11.6-14.8) H Platelet Count 188 K/UL (150-450) 183 K/UL (150-450) Mean Platelet Volume 8.6 FL (6.5-10.1) 9.1 FL (6.5-10.1) Neutrophils (%) (Auto) 58.1 % (45.0-75.0) 60.6 % (45.0-75.0) Lymphocytes (%) (Auto) 26.4 % (20.0-45.0) 26.1 % (20.0-45.0) Monocytes (%) (Auto) 9.5 % (1.0-10.0) 8.2 % (1.0-10.0) Eosinophils (%) (Auto) 4.2 % (0.0-3.0) H 4.5 % (0.0-3.0) H Basophils (%) (Auto) 1.9 % (0.0-2.0) 0.6 % (0.0-2.0) Sodium Level 142 MMOL/L (136-145) 139 MMOL/L (136-145) Potassium Level 3.6 MMOL/L (3.5-5.1) 3.6 MMOL/L (3.5-5.1) Chloride Level 105 MMOL/L (98-107) 105 MMOL/L (98-107) Carbon Dioxide Level 33 MMOL/L (21-32) H 28 MMOL/L (21-32) Anion Gap 4 mmol/L (5-15) L 6 mmol/L (5-15) Blood Urea Nitrogen 21 mg/dL (7-18) H 18 mg/dL (7-18) Creatinine 1.3 MG/DL (0.55-1.30) 1.0 MG/DL (0.55-1.30) Estimat Glomerular Filtration Rate 50.1 mL/min (>60) > 60 mL/min (>60) Glucose Level 107 MG/DL (74-106) H 92 MG/DL (74-106) Lactic Acid Level 1.30 mmol/L (0.4-2.0) Calcium Level 8.3 MG/DL (8.5-10.1) L 8.2 MG/DL (8.5-10.1) L Total Bilirubin 0.4 MG/DL (0.2-1.0) 0.3 MG/DL (0.2-1.0) Aspartate Amino Transf (AST/SGOT) 13 U/L (15-37) L 13 U/L (15-37) L Alanine Aminotransferase (ALT/SGPT) 26 U/L (12-78) 20 U/L (12-78) Alkaline Phosphatase 66 U/L (46-116) 67 U/L (46-116) Total Creatine Kinase 18 U/L (26-308) L Creatine Kinase MB 0.5 NG/ML (0.0-3.6) Creatine Kinase MB Relative Index 2.7 Troponin I 0.001 ng/mL (0.000-0.056) 0.001 ng/mL (0.000-0.056) Total Protein 6.9 G/DL (6.4-8.2) 6.6 G/DL (6.4-8.2) Albumin 2.4 G/DL (3.4-5.0) L 2.4 G/DL (3.4-5.0) L Globulin 4.5 g/dL 4.2 g/dL Albumin/Globulin Ratio 0.5 (1.0-2.7) L 0.6 (1.0-2.7) L Urine Color Yellow Urine Appearance Slightly cloudy Urine pH 5 (4.5-8.0) Urine Specific [place] 1.020 (1.005-1.035) Urine Protein 2+ (NEGATIVE) H Urine Glucose (UA) Negative (NEGATIVE) Urine Ketones Negative (NEGATIVE) Urine Blood 1+ (NEGATIVE) H Urine Nitrite Negative (NEGATIVE) Urine Bilirubin Negative (NEGATIVE) Urine Urobilinogen Normal MG/DL (0.0-1.0) Urine Leukocyte Esterase 1+ (NEGATIVE) H Urine RBC 0-2 /HPF (0 - 2) Urine WBC 5-10 /HPF (0 - 2) H Urine Squamous Epithelial Cells Moderate /LPF (NONE/OCC) H Urine Bacteria Moderate /HPF (NONE) H Thyroid Stimulating Hormone (TSH) 1.383 uiU/mL (0.358-3.740) Active Scripts Medications Dose Route/Sig Max Daily Dose Days Date Category Gabapentin* (Gabapentin) 100 Mg Capsule 100 Mg ORAL BID 02/09/19 Reported Losartan Potassium 100 Mg Tablet 50 Mg ORAL BID 02/09/19 Reported Norvasc (Amlodipine Besylate) 10 Mg Tablet 10 Mg ORAL DAILY 02/09/19 Reported Metoprolol Tartrate* (Metoprolol Tartrate) 50 Mg Tablet 75 Mg ORAL BID 02/09/19 Reported Lipitor* (Atorvastatin Calcium) 10 Mg Tablet 10 Mg ORAL BEDTIME 02/02/15 Reported Amitriptyline Hcl* (Amitriptyline HCl) 10 Mg Tablet 10 Mg ORAL BEDTIME 02/02/15 Reported Clopidogrel* (Clopidogrel Bisulfate) 75 Mg Tablet 75 Mg ORAL DAILY 02/02/15 Reported Cordarone* (Amiodarone HCl) 200 Mg Tablet 200 Mg ORAL DAILY 02/02/15 Reported Benazepril Hcl* (Benazepril HCl) 10 Mg Tablet 10 Mg ORAL DAILY 02/02/15 Reported Abilify* (Aripiprazole) 2 Mg Tablet 2 Mg ORAL DAILY 02/02/15 Reported Aspir 81* (Aspirin) 81 Mg Tablet. 81 Mg ORAL DAILY 02/02/15 Reported Assessment and Recs: # Anemia of chronic disease (or of iron deficiency) due to underlying chronic medical issues, multifactorial --> Anemia workup has been ordered, rule out gi bleed --> No evidence of hemolysis is noted, peripheral smear has been reviewed. --> Hgb goal >7. Transfuse prn. --> Epogen or iron at this time is not particularly indicated --> Medications have been reviewed --> low threshold for gi evaluation in case has occult + --> bone marrow biopsy is not indicated given the other more likely causes # Eosinophilia -- elevated wbc noted and eosinophil % is elevated as well --> rule out underlying infection, as per ID recs, abx as required --> no evidence of allergic reaction, common cause --> medications have been reviewed --> does not have a history of malignancy, no evidence of lymphoma, common cause --> rule out adrenal insufficiency, no recent steriod use is noted --> obtain stool O&P rule out parasitic infections and/or cocci --> if persists consider CT scan, bone marrow biopsy or LP as required --> trend eosinophil % # Urinary tract infection --> on abx as per ID # Hypocalcemia -- Ca++ repleted # Hypotension on IVF, given bolus The timing of this note does not necessarily reflect the time of the patient was seen. GREATLY APPRECIATE CONSULTATION. Ru Carcamo MD Feb 09, 2019 16:38
--- NOTE | 2019-02-09 17:45 | Consultation ---
DATE OF CONSULTATION: 02/09/2019 CARDIOLOGY CONSULTATION CONSULTING PHYSICIAN: Ian Kaminski M.D. REFERRING PHYSICIAN: Kiki Valero M.D. REASON FOR CONSULTATION: Management of hypertension and chest pain. HISTORY OF PRESENT ILLNESS: The patient is a 63-year-old lady with history of hypertension, morbid obesity, who is nonmobile, living at home was brought in by paramedics for increased generalized weakness and body aches. The patient also states that she has been having diarrhea as well as chest pain. The patient has history of prior diabetes and CVA. Cardiology consultation was obtained for further evaluation and management. PAST MEDICAL HISTORY: As mentioned above. FAMILY HISTORY: Noncontributory. SOCIAL HISTORY: She lives at home and is not mobile. She does not smoke or drink alcohol. REVIEW OF SYSTEMS: Review of systems was negative other than what was mentioned in the history of present illness. PHYSICAL EXAMINATION: VITAL SIGNS: Show blood pressure of 131/55, pulse 62, and respirations 20. HEAD AND NECK: Showed no JVD or carotid bruit. LUNGS: Clear. CARDIOVASCULAR: Shows regular S1 and S2 with no gallop or murmur. ABDOMEN: Morbidly obese. EXTREMITIES: A 1+ pitting edema. LABORATORY AND DIAGNOSTIC DATA: Her EKG showed sinus bradycardia at the rate of 54. Laboratories show white count of 11.6, hemoglobin 10.7, hematocrit 34.5, and platelet count of 183,000. Sodium 139, potassium 3.6, BUN of 18, creatinine of 1, and glucose of 92. Troponin is negative. ASSESSMENT AND PLAN: 1. Bradycardia. Heart is currently stable. Decrease metoprolol to 50 mg b.i.d. 2. Hypertension. On Norvasc 10 mg daily and metoprolol 50 b.i.d. and losartan 50 mg b.i.d. 3. Hyperlipidemia. On Lipitor. 4. Right common femoral vein DVT. The patient was started on Eliquis 10 mg b.i.d. 5. Diarrhea and anemia. Further evaluation by Dr. Durant. 6. Morbid obesity. 7. History of diabetes. 8. History of tobacco use. Thank you, Dr. Valero, for allowing me to participate in the care of this patient. Please do not hesitate to contact me for any questions regarding my evaluation. Ian Kaminski M.D. DR: DAVID JOB#: [id number] CC:
[2019-02-09] MEDS ORDERED: TRAZODONE HCL300 MG ORAL (17:47)
[2019-02-09] MEDS ORDERED: LIPITOR80 MG ORAL (17:47)
[2019-02-09] MEDS ORDERED: ACETAMINOPHEN500 M5 ORAL (17:47)
[2019-02-09] MEDS ORDERED: LATUDA80 MG PO (17:47)
[2019-02-09] MEDS: Eliquis 5mg tablet ORAL SCH (17:56)
--- NOTE | 2019-02-09 20:00 | NUR ---
F/C inserted per Dr. Hernandez (for 24 hr urine collection). Pt moved to geriatric bed via 6 personnel. Pt handed off to PEPPER [place] in stable condition.
--- NOTE | 2019-02-09 20:00 | NUR ---
NURSE NOTES: Received report from PEPPER Rai. Patient seen in bed in semi zepeda position in room air with no distress noted. Alert, verbally responsive, able to make needs known. denies any bed. IV site is to right AC20g and is intact. currently running NS 75cc/hr. Noted with ruggiero cath and is intact. patient is on 24 hour urine collection. Bed is in lowest position. Call light is within easy reach while in bed. Will continue to monitor.
[2019-02-09] MEDS ORDERED: Atorvastatin 20mg tab ORAL SCH (21:00)
[2019-02-09] MEDS ORDERED: TraZODone 50mg tab ORAL SCH (21:00)
[2019-02-09] MEDS: Losartan 50mg tab ORAL SCH (21:02)
[2019-02-09] MEDS: Metoprolol Tartrate 50mg tab ORAL SCH (21:03)
[2019-02-09] MEDS ORDERED: cefTRIAXone 1 GM in D5W 55 ML IVPB SCH (22:00)
[2019-02-10] VITALS: BP 132/68
--- NOTE | 2019-02-10 03:00 | History and Physical Report ---
DATE OF ADMISSION: 02/08/2019 NOTE: POOR AUDIO HISTORY OF PRESENT ILLNESS: The patient is admitted for generalized weakness, history of hypertension UTI, diarrhea, morbid obesity, and chronic bradycardia on the EKG. The patient also complains of chest pain, worsened by cough. She has history of COPD and also wheezing, shortness of breath, and productive cough. The patient is morbidly obese. She does have chronic back pain and also had some diarrhea and . No rectal bleeding. The patient states that she cannot walk for two years and is bed-bound. PAST MEDICAL HISTORY: Morbid obesity, hypertension, psychosis, hyperlipidemia, mood disorder, and low back pain. PAST SURGICAL HISTORY: None. ALLERGIES: No known allergies. MEDICATIONS: Amlodipine, amiodarone, Lipitor, Plavix, gabapentin, losartan, metoprolol, and trazodone. FAMILY HISTORY: Noncontributory. SOCIAL HISTORY: Denies history of smoking. Denies history of alcohol or illicit drugs. She lives at home . REVIEW OF SYSTEMS: HEENT: Denies headaches. RESPIRATORY: She does have productive cough. Does have shortness of breath. Denies any wheezing. CARDIOVASCULAR: She does have chest pain, made worse by deep inspiration. GASTROINTESTINAL: Denies nausea or vomiting. EXTREMITIES: She does have back pain . PHYSICAL EXAMINATION: VITAL SIGNS: Temperature is 98.6, pulse is 61, and blood pressure is 137/72. HEENT: PERRLA. NECK: Supple. No lymphadenopathy. CHEST: Clear to auscultation. CARDIOVASCULAR: Bradycardic. GASTROINTESTINAL: Soft. Positive bowel sounds. Nontender. EXTREMITIES: 1+ edema. The patient is morbidly obese. Decreased motor strength in the lower extremities, which is chronic. CENTRAL NERVOUS SYSTEM: Oriented x2. LABORATORY AND DIAGNOSTIC DATA: WBC of 11.7, hemoglobin 10.7, and platelets 188,000. Sodium 139, potassium 3.6, BUN of 18, creatinine 1, and glucose of 92. ASSESSMENT AND PLAN: 1. UTI. 2. Hypertension. 3. Chest pain. 4. Atypical shortness of breath. 5. COPD. I have asked Dr. Hernandez, Dr. Kaminski, Dr. Durant, Dr. Jack Andrews to see the patient for the management of the above diagnoses and further treatment. Kiki Valero M.D. DR: BRENT JOB#: [id number] CC:
[2019-02-10 03:33] LABS: BASOPHILS % (AUTO) 1.1 % (0.0-2.0); EOSINOPHILS % (AUTO) 5.5 % (0.0-3.0); HEMOGLOBIN 12.5 G/DL (12.0-16.0); LYMPHOCYTES % (AUTO) 14.7 % (20.0-45.0); MEAN CORPUSCULAR VOLUME 86 FL (80-99); MONOCYTES % (AUTO) 7.4 % (1.0-10.0); NEUTROPHILS % (AUTO) 71.3 % (45.0-75.0); PLATELET COUNT 188 K/UL (150-450); RED BLOOD COUNT 4.78 M/UL (4.20-5.40); RED CELL DISTRIBUTION WIDTH 17.3 % (11.6-14.8); WHITE BLOOD COUNT 11.2 K/UL (4.8-10.8)
[2019-02-10 04:00] VITALS: BP 126/71
[2019-02-10 04:34] LABS: CREATINE KINASE 41 U/L (26-308); GAMMA GLUTAMYL TRANSPEPTIDASE 46 U/L (5-85); PHOSPHORUS 2.1 MG/DL (2.5-4.9)
[2019-02-10 04:58] LABS: % IRON SATURATION 12 % (15-50); IRON 31 ug/dL (50-175); TOTAL IRON BINDING CAPACITY 254 ug/dL (250-450)
[2019-02-10 05:19] LABS: ALANINE AMINOTRANSFERASE 16 U/L (12-78); ALBUMIN 2.7 G/DL (3.4-5.0); ALBUMIN/GLOBULIN RATIO 0.6 (1.0-2.7); ALKALINE PHOSPHATASE 77 U/L (46-116); ANION GAP 12 mmol/L (5-15); ASPARTATE AMINO TRANSFERASE 12 U/L (15-37); BILIRUBIN,TOTAL 0.3 MG/DL (0.2-1.0); BLOOD UREA NITROGEN 11 mg/dL (7-18); CALCIUM 8.6 MG/DL (8.5-10.1); CARBON DIOXIDE 25 MMOL/L (21-32); CHLORIDE 105 MMOL/L (98-107); CHOLESTEROL 108 MG/DL (< 200); CREATININE 0.9 MG/DL (0.55-1.30); FERRITIN 67 NG/ML (8-388); HDL CHOLESTEROL 62 MG/DL (40-60); POTASSIUM 3.9 MMOL/L (3.5-5.1); SODIUM 142 MMOL/L (136-145); TRIGLYCERIDES 66 MG/DL (30-150)
--- NOTE | 2019-02-10 06:46 | NUR ---
NURSE NOTES: Called Dr Valero and left a message re: abnormal lab results (mg 1.7). Awaiting for Call back.
--- NOTE | 2019-02-10 07:18 | NUR ---
HAND-OFF: Report given to Parag Eason RN.
--- NOTE | 2019-02-10 07:19 | NUR ---
NURSE NOTES: Received patient from Jeanie PABON. Patient is awake and oriented x4. Patient is on room air, tolerating well, showing no signs of respiratory distress. Molina catheter is patent and draining, patient is on 24 hour urine collection. IV site is Right AC 20g receiving normal saline at 75cc/hr. Bed is locked, placed in lowest position, side rails up x2, call light within reach. Will continue to monitor.
--- NOTE | 2019-02-10 07:30 | Consultation ---
DATE OF CONSULTATION: 02/09/2019 HISTORY OF PRESENT ILLNESS: This is a 63-year-old female with a history of hypertension, obesity, generalized weakness, and schizoaffective disorder who has been admitted to the hospital for hypertension and chest pain. The patient has been on multiple psychotropic medications including Latuda and will continue trazodone. The patient is currently depressed and withdrawn, has flat affect, anxiety, and has difficulty sleeping. The patient is also paranoid. PAST PSYCHIATRIC HISTORY: Schizoaffective disorder. She has a psychiatrist. She would not like to change her antipsychotic medication from Latuda to any other psychotropics. PAST MEDICAL HISTORY: Hypertension, COPD, morbid obesity, diabetes, and hyperlipidemia. ALLERGIES: No known drug allergies. SUBSTANCE ABUSE HISTORY: No known history of illicit drug use or alcohol. MENTAL STATUS EXAMINATION: The patient is alert and oriented x3. Cooperative. Mood is anxious and depressed. Affect is constricted, congruent with mood. Thought process is concrete. Thought content, no suicidal or homicidal ideations. ASSESSMENT: [place] I Schizoaffective disorder. [place] II Deferred. [place] III Chest pain. [place] IV Low. [place] V 50. PLAN: 1. The patient will bring her Latuda from home as the hospital does not have Latuda . 2. Continue her trazodone. Continue her Neurontin for anxiety. 3. We will continue to follow and readjust the medications. Provide the patient with reality orientation and supportive therapy. Angela Dubon M.D. DR: IWONA JOB#: [id number] CC:
[2019-02-10 08:00] VITALS: BP 129/69
--- NOTE | 2019-02-10 08:19 | General Progress Note ---
Assessment/Plan Problem List: (1) Anemia ICD Codes: D64.9 - Anemia, unspecified SNOMED: 089970167 (2) Diarrhea ICD Codes: R19.7 - Diarrhea, unspecified SNOMED: 08241178 (3) Hypertension ICD Codes: I10 - Essential (primary) hypertension SNOMED: 13268715 (4) Morbid obesity with BMI of 50.0-59.9, adult ICD Codes: E66.01 - Morbid (severe)obesity due to excess calories; Z68.43 - Body mass index (bmi) 50-59.9 , adult SNOMED: 005425750 (5) Tobacco abuse ICD Codes: Z72.0 - Tobacco use SNOMED: 55131684 (6) Diabetes ICD Codes: E11.9 - Type 2 diabetes mellitus without complications SNOMED: 93262359 Assessment/Plan: stool studies iv iron fu stool ob replace mag and phos add folic acid fu cardiology recs GI procedures if needed Subjective ROS Limited/Unobtainable: Yes Allergies: Coded Allergies: No Known Allergies (Unverified , 02/01/15) Objective Last 24 Hour Vital Signs Date Time Temp Pulse Resp B/P (MAP) Pulse Ox O2 Delivery O2 Flow Rate FiO2 02/10/19 08:00 Room Air 02/10/19 04:00 98.9 64 20 126/71 (89) 96 02/10/19 04:00 Room Air 02/10/19 03:31 62 02/10/19 00:00 96.4 60 20 132/68 (89) 96 02/10/19 00:00 Room Air 02/09/19 23:24 65 02/09/19 21:03 80 118/72 02/09/19 21:02 118/72 02/09/19 20:00 97.6 84 20 118/64 (82) 97 02/09/19 20:00 Room Air 02/09/19 19:30 Room Air 02/09/19 19:21 70 02/09/19 16:00 98.6 60 20 137/70 (92) 97 02/09/19 16:00 73 02/09/19 16:00 Room Air 02/09/19 12:00 56 02/09/19 12:00 Room Air 02/09/19 12:00 98.6 61 20 134/72 (92) 94 Intake and Output 02/09/19 02/10/19 19:00 07:00 Intake Total 520 ml 1202.50 ml Output Total 400 ml 1775 ml Balance 120 ml -572.50 ml Intake Oral 240 ml IV Total 520 ml 962.50 ml Output Urine Total 400 ml 1775 ml # Voids 1 Laboratory Tests 02/09/19 12:45: Troponin I 0.001, Thyroid Stimulating Hormone (TSH) 1.383 02/09/19 18:54: Troponin I 0.000 02/10/19 03:22: Troponin I 0.000, White Blood Count 11.2H, Red Blood Count 4.78, Hemoglobin 12.5 , Hematocrit 41.0, Mean Corpuscular Volume 86, Mean Corpuscular Hemoglobin 26.1L , Mean Corpuscular Hemoglobin Concent 30.4L, Red Cell Distribution Width 17.3H, Platelet Count 188, Mean Platelet Volume 8.6, Neutrophils (%) (Auto) 71.3, Lymphocytes (%) (Auto) 14.7L, Monocytes (%) (Auto) 7.4, Eosinophils (%) (Auto) 5.5H, Basophils (%) (Auto) 1.1, Sodium Level 142, Potassium Level 3.9, Chloride Level 105, Carbon Dioxide Level 25, Anion Gap 12, Blood Urea Nitrogen 11, Creatinine 0.9, Estimat Glomerular Filtration Rate > 60, Glucose Level 101, Hemoglobin A1c 5.6, Uric Acid 5.6, Calcium Level 8.6, Phosphorus Level 2.1L, Magnesium Level 1.7L, Iron Level 31L, Total Iron Binding Capacity 254, Percent Iron Saturation 12L, Unsaturated Iron Binding 223, Ferritin 67, Total Bilirubin 0.3, Gamma Glutamyl Transpeptidase 46, Aspartate Amino Transf (AST/SGOT) 12L, Alanine Aminotransferase (ALT/SGPT) 16, Alkaline Phosphatase 77, Total Creatine Kinase 41, C-Reactive Protein, Quantitative 10.6H, Pro-B-Type Natriuretic Peptide 282H, Total Protein 7.4, Albumin 2.7L, Globulin 4.7, Albumin/Globulin Ratio 0.6L, Triglycerides Level 66, Cholesterol Level 108, LDL Cholesterol 38, HDL Cholesterol 62H, Cholesterol/HDL Ratio 1.7L, Vitamin B12 Level 649, Folate 4.7L, Free Thyroxine 1.42 Height (Feet): 5 Height (Inches): 9.00 Weight (Pounds): 400 General Appearance: alert EENT: normal ENT inspection Neck: supple Cardiovascular: normal rate Respiratory/Chest: decreased breath sounds Abdomen: normal bowel sounds, non tender, soft Extremities: non-tender Faisal Durant MD Feb 10, 2019 08:19
[2019-02-10] MEDS ORDERED: Aspirin EC 81mg tab ORAL SCH (09:00)
[2019-02-10] MEDS: Metoprolol Tartrate 50mg tab ORAL SCH ×2 (09:09→21:19)
[2019-02-10] MEDS: Eliquis 5mg tablet ORAL SCH ×2 (09:09→17:34)
[2019-02-10] MEDS: Losartan 50mg tab ORAL SCH ×2 (09:10→21:17)
--- NOTE | 2019-02-10 09:55 | NUR ---
CASE MANAGEMENT: REVIEW 02/10/2019 SI:DEHYDRATION T 98.9 HR 64 RR 20 B/P 126/71 SATS 96% ON RA WBC 11.2 AST 12 IS: IVF @ 75 mL/HR COZAAR PO Q12H LIPITOR PO QHS TRAZODONE PO QHS GABAPENTIN PO QHS VENOFER IV QHS ELIQUIS PO BID PEPCID PO BID ASA PO QD NORVASC PO QD SODIUM PHOS IV X1 K PHOS IV X1 LOPRESSOR PO Q12H CEFTRIAXONE IV Q24H SDU STATUS DCP: PATIENT TO BE DISCHARGED TO HOME ONCE MEDICALLY CLEARED. PLAN OF CARE: VENOUS DUPLEX >> ACUTE THROMBUS IN THE RIGHT COMMON FEMORAL TO THE PROXIMAL SUPERFICIAL FEMORAL VEINS. WOUND CARE 2D ECHO (EF 55%)
[2019-02-10] MEDS ORDERED: Sodium Phosphate 15 MM in NS 275 ML IVPB ONE (10:00)
--- NOTE | 2019-02-10 10:18 | Infectious Diseases Prog Note ---
Assessment/Plan Assessment/Plan Impression: Mild pyuria, UTI. DVT of R leg gastroenteritis with dehydration. diabetes mellitus, Morbid obesity COPD, anemia, hypertension, history of coronary artery disease, history of CVA. RECOMMENDATION: We will follow up the cultures. We will continue with ceftriaxone. Subjective ROS Limited/Unobtainable: No Constitutional: Reports: no symptoms Respiratory: Reports: no symptoms Cardiovascular: Reports: no symptoms Gastrointestinal/Abdominal: Reports: no symptoms Genitourinary: Reports: no symptoms Musculoskeletal: Reports: pain, other - in back, legs Allergies: Coded Allergies: No Known Allergies (Unverified , 02/01/15) Objective Vital Signs Last 24 Hour Vital Signs Date Time Temp Pulse Resp B/P (MAP) Pulse Ox O2 Delivery O2 Flow Rate FiO2 02/10/19 09:11 64 149/90 02/10/19 09:10 149/90 02/10/19 09:09 63 149/90 02/10/19 08:00 Room Air 02/10/19 08:00 97.9 68 22 129/69 (89) 96 02/10/19 04:00 98.9 64 20 126/71 (89) 96 02/10/19 04:00 Room Air 02/10/19 03:31 62 02/10/19 00:00 96.4 60 20 132/68 (89) 96 02/10/19 00:00 Room Air 02/09/19 23:24 65 02/09/19 21:03 80 118/72 02/09/19 21:02 118/72 02/09/19 20:00 97.6 84 20 118/64 (82) 97 02/09/19 20:00 Room Air 02/09/19 19:30 Room Air 02/09/19 19:21 70 02/09/19 16:00 98.6 60 20 137/70 (92) 97 02/09/19 16:00 73 02/09/19 16:00 Room Air 02/09/19 12:00 56 02/09/19 12:00 Room Air 02/09/19 12:00 98.6 61 20 134/72 (92) 94 Height (Feet): 5 Height (Inches): 9.00 Weight (Pounds): 400 General Appearance: other - obese HEENT: mucous membranes moist Respiratory/Chest: lungs clear Cardiovascular: normal rate Abdomen: soft, non tender Genitourinary: other - Molina catheter Extremities: other - trace edema of legs Neurologic/Psychiatric: alert, oriented x 3, responsive Microbiology Date/Time Source Procedure Growth Status 02/08/19 22:01 Urine,Clean Catch Urine Culture - Preliminary Gram Negative Bacillus 1 Resulted Laboratory Tests Test 02/09/19 12:45 02/09/19 18:54 02/10/19 03:22 Troponin I 0.001 ng/mL (0.000-0.056) 0.000 ng/mL (0.000-0.056) 0.000 ng/mL (0.000-0.056) Thyroid Stimulating Hormone (TSH) 1.383 uiU/mL (0.358-3.740) White Blood Count 11.2 K/UL (4.8-10.8) H Red Blood Count 4.78 M/UL (4.20-5.40) Hemoglobin 12.5 G/DL (12.0-16.0) Hematocrit 41.0 % (37.0-47.0) Mean Corpuscular Volume 86 FL (80-99) Mean Corpuscular Hemoglobin 26.1 PG (27.0-31.0) L Mean Corpuscular Hemoglobin Concent 30.4 G/DL (32.0-36.0) L Red Cell Distribution Width 17.3 % (11.6-14.8) H Platelet Count 188 K/UL (150-450) Mean Platelet Volume 8.6 FL (6.5-10.1) Neutrophils (%) (Auto) 71.3 % (45.0-75.0) Lymphocytes (%) (Auto) 14.7 % (20.0-45.0) L Monocytes (%) (Auto) 7.4 % (1.0-10.0) Eosinophils (%) (Auto) 5.5 % (0.0-3.0) H Basophils (%) (Auto) 1.1 % (0.0-2.0) Sodium Level 142 MMOL/L (136-145) Potassium Level 3.9 MMOL/L (3.5-5.1) Chloride Level 105 MMOL/L (98-107) Carbon Dioxide Level 25 MMOL/L (21-32) Anion Gap 12 mmol/L (5-15) Blood Urea Nitrogen 11 mg/dL (7-18) Creatinine 0.9 MG/DL (0.55-1.30) Estimat Glomerular Filtration Rate > 60 mL/min (>60) Glucose Level 101 MG/DL (74-106) Hemoglobin A1c 5.6 % (4.3-6.0) Uric Acid 5.6 MG/DL (2.6-7.2) Calcium Level 8.6 MG/DL (8.5-10.1) Phosphorus Level 2.1 MG/DL (2.5-4.9) L Magnesium Level 1.7 MG/DL (1.8-2.4) L Iron Level 31 ug/dL (50-175) L Total Iron Binding Capacity 254 ug/dL (250-450) Percent Iron Saturation 12 % (15-50) L Unsaturated Iron Binding 223 ug/dL (112-346) Ferritin 67 NG/ML (8-388) Total Bilirubin 0.3 MG/DL (0.2-1.0) Gamma Glutamyl Transpeptidase 46 U/L (5-85) Aspartate Amino Transf (AST/SGOT) 12 U/L (15-37) L Alanine Aminotransferase (ALT/SGPT) 16 U/L (12-78) Alkaline Phosphatase 77 U/L (46-116) Total Creatine Kinase 41 U/L (26-308) C-Reactive Protein, Quantitative 10.6 mg/dL (0.00-0.90) H Pro-B-Type Natriuretic Peptide 282 pg/mL (0-125) H Total Protein 7.4 G/DL (6.4-8.2) Albumin 2.7 G/DL (3.4-5.0) L Globulin 4.7 g/dL Albumin/Globulin Ratio 0.6 (1.0-2.7) L Triglycerides Level 66 MG/DL (30-150) Cholesterol Level 108 MG/DL (< 200) LDL Cholesterol 38 mg/dL (<100) HDL Cholesterol 62 MG/DL (40-60) H Cholesterol/HDL Ratio 1.7 (3.3-4.4) L Vitamin B12 Level 649 PG/ML (193-986) Folate 4.7 NG/ML (8.6-58.9) L Free Thyroxine 1.42 NG/DL (0.76-1.46) Current Medications Medications (Trade) Dose Ordered Sig/Lora Route PRN Reason Start Time Stop Time Status Last Admin Dose Admin Acetaminophen (Tylenol) 500 mg Q4H PRN ORAL Mild Pain/Temp > 100.5 02/09/19 02:00 03/11/19 01:59 02/09/19 14:43 Amlodipine Besylate (Norvasc) 10 mg DAILY ORAL 02/10/19 09:00 03/12/19 08:59 02/10/19 09:11 Apixaban (Eliquis) 10 mg BID ORAL 02/09/19 18:00 03/11/19 17:59 02/10/19 09:09 Aspirin (Ecotrin) 81 mg DAILY ORAL 02/10/19 09:00 03/12/19 08:59 02/10/19 09:09 Atorvastatin Calcium (Lipitor) 20 mg BEDTIME ORAL 02/09/19 21:00 03/11/19 20:59 02/09/19 21:03 Ceftriaxone Sodium 1 gm/ Dextrose 55 ml @ 110 mls/hr Q24H IVPB 02/09/19 22:00 02/16/19 21:59 02/09/19 21:01 Famotidine (Pepcid) 20 mg BID ORAL 02/09/19 18:00 03/11/19 17:59 02/10/19 09:17 Folic Acid (Folate) 1 mg DAILY ORAL 02/10/19 09:00 03/12/19 08:59 02/10/19 09:11 Gabapentin (Neurontin) 300 mg BEDTIME ORAL 02/09/19 21:00 03/11/19 20:59 02/09/19 21:03 Iron Sucrose 100 mg/Sodium Chloride 60 ml @ 240 mls/hr BEDTIME IV 02/10/19 21:00 02/14/19 21:14 Losartan Potassium (Cozaar) 50 mg EVERY 12 HOURS ORAL 02/09/19 21:00 03/11/19 20:59 02/10/19 09:10 Magnesium Sulfate 100 ml @ 100 mls/hr Q1H IVPB 02/10/19 08:30 02/10/19 11:29 02/10/19 09:54 Magnesium Sulfate 100 ml @ 100 mls/hr Q1H IVPB 02/10/19 10:00 02/10/19 11:59 UNV Metoprolol Tartrate (Lopressor) 50 mg Q12HR ORAL 02/09/19 21:00 03/11/19 20:59 02/10/19 09:09 Ondansetron HCl (Zofran) 4 mg Q6H PRN IVP Nausea & Vomiting 02/09/19 02:00 03/11/19 01:59 Potassium Phosphate 20 mm/ Sodium Chloride 281.6667 ml @ 46.944 m... ONCE ONCE IVPB 02/10/19 10:00 02/10/19 15:59 UNV Sodium Chloride 1,000 ml @ 75 mls/hr [id number] IV 02/09/19 03:00 03/11/19 02:59 02/10/19 05:44 Sodium Phosphate 15 mm/Sodium Chloride 280 ml @ 70.273 mls/ hr ONCE ONCE IVPB 02/10/19 10:00 02/10/19 13:59 Trazodone HCl (Desyrel) 150 mg BEDTIME ORAL 02/09/19 21:00 03/11/19 20:59 02/09/19 21:02 Jack Andrews MD Feb 10, 2019 10:18
--- NOTE | 2019-02-10 11:00 | NUR ---
RD ASSESSMENT & RECOMMENDATIONS SEE CARE ACTIVITY FOR COMPLETE ASSESSMENT DAILY ESTIMATED NEEDS: Needs based on Wound, cardiac, pulmonary, obese 90kg adj 20-25 kcals/kg 1333-6361 total kcals 1.25-1.5 g protein/kg 113-135 g total protein 25-30 mL/kg 9154-1807 total fluid mLs NUTRITION DIAGNOSIS: 1) Increased protein needs r/t wound healing as evidenced by pt w/ partila thickness wounds to L ischium and L thigh. 2) Obesity r/t environmental factors? excessive po intake? as evidenced by pt w/ BMI 57, est 268% of [place] Body Weight. (CURRENT DIET: Cardiac/ CCHO LOW) PO DIET RECOMMENDATIONS--->> CARDIAC DIET ADDITIONAL RECOMMENDATIONS: 1) Add CORAZON BID for wound care + MVI x1 daily + VIt C 500mg daily 2) As able, recalibrate bed scale for accurate CBW 3) Check lytes daily, replete as needed 4) Monitor PO intake
--- NOTE | 2019-02-10 11:05 | Cardiac Electrophysiology PN ---
Assessment/Plan Assessment/Plan 1. Bradycardia. Heart is currently stable on metoprolol decrease to 50 mg b.i.d. 2. Hypertension. On Norvasc 10 mg daily and metoprolol 50 b.i.d. and losartan 50 mg b.i.d. 3. Hyperlipidemia. On Lipitor. 4. Right common femoral vein DVT. On Eliquis 10 mg b.i.d. 5. Diarrhea and anemia. Further evaluation by Dr. Durant. 6. Morbid obesity. 7. History of diabetes. 8. History of tobacco use. Subjective Subjective Alert in NAD. No CP or SOB.In SR Objective Last 24 Hour Vital Signs Date Time Temp Pulse Resp B/P (MAP) Pulse Ox O2 Delivery O2 Flow Rate FiO2 02/10/19 09:11 64 149/90 02/10/19 09:10 149/90 02/10/19 09:09 63 149/90 02/10/19 08:00 Room Air 02/10/19 08:00 97.9 68 22 129/69 (89) 96 02/10/19 07:43 63 02/10/19 04:00 98.9 64 20 126/71 (89) 96 02/10/19 04:00 Room Air 02/10/19 03:31 62 02/10/19 00:00 96.4 60 20 132/68 (89) 96 02/10/19 00:00 Room Air 02/09/19 23:24 65 02/09/19 21:03 80 118/72 02/09/19 21:02 118/72 02/09/19 20:00 97.6 84 20 118/64 (82) 97 02/09/19 20:00 Room Air 02/09/19 19:30 Room Air 02/09/19 19:21 70 02/09/19 16:00 98.6 60 20 137/70 (92) 97 02/09/19 16:00 73 02/09/19 16:00 Room Air 02/09/19 12:00 56 02/09/19 12:00 Room Air 02/09/19 12:00 98.6 61 20 134/72 (92) 94 Intake and Output 02/09/19 02/10/19 19:00 07:00 Intake Total 520 ml 1202.50 ml Output Total 400 ml 1775 ml Balance 120 ml -572.50 ml Intake Oral 240 ml IV Total 520 ml 962.50 ml Output Urine Total 400 ml 1775 ml # Voids 1 Laboratory Tests Test 02/09/19 12:45 02/09/19 18:54 02/10/19 03:22 Troponin I 0.001 ng/mL (0.000-0.056) 0.000 ng/mL (0.000-0.056) 0.000 ng/mL (0.000-0.056) Thyroid Stimulating Hormone (TSH) 1.383 uiU/mL (0.358-3.740) White Blood Count 11.2 K/UL (4.8-10.8) H Red Blood Count 4.78 M/UL (4.20-5.40) Hemoglobin 12.5 G/DL (12.0-16.0) Hematocrit 41.0 % (37.0-47.0) Mean Corpuscular Volume 86 FL (80-99) Mean Corpuscular Hemoglobin 26.1 PG (27.0-31.0) L Mean Corpuscular Hemoglobin Concent 30.4 G/DL (32.0-36.0) L Red Cell Distribution Width 17.3 % (11.6-14.8) H Platelet Count 188 K/UL (150-450) Mean Platelet Volume 8.6 FL (6.5-10.1) Neutrophils (%) (Auto) 71.3 % (45.0-75.0) Lymphocytes (%) (Auto) 14.7 % (20.0-45.0) L Monocytes (%) (Auto) 7.4 % (1.0-10.0) Eosinophils (%) (Auto) 5.5 % (0.0-3.0) H Basophils (%) (Auto) 1.1 % (0.0-2.0) Sodium Level 142 MMOL/L (136-145) Potassium Level 3.9 MMOL/L (3.5-5.1) Chloride Level 105 MMOL/L (98-107) Carbon Dioxide Level 25 MMOL/L (21-32) Anion Gap 12 mmol/L (5-15) Blood Urea Nitrogen 11 mg/dL (7-18) Creatinine 0.9 MG/DL (0.55-1.30) Estimat Glomerular Filtration Rate > 60 mL/min (>60) Glucose Level 101 MG/DL (74-106) Hemoglobin A1c 5.6 % (4.3-6.0) Uric Acid 5.6 MG/DL (2.6-7.2) Calcium Level 8.6 MG/DL (8.5-10.1) Phosphorus Level 2.1 MG/DL (2.5-4.9) L Magnesium Level 1.7 MG/DL (1.8-2.4) L Iron Level 31 ug/dL (50-175) L Total Iron Binding Capacity 254 ug/dL (250-450) Percent Iron Saturation 12 % (15-50) L Unsaturated Iron Binding 223 ug/dL (112-346) Ferritin 67 NG/ML (8-388) Total Bilirubin 0.3 MG/DL (0.2-1.0) Gamma Glutamyl Transpeptidase 46 U/L (5-85) Aspartate Amino Transf (AST/SGOT) 12 U/L (15-37) L Alanine Aminotransferase (ALT/SGPT) 16 U/L (12-78) Alkaline Phosphatase 77 U/L (46-116) Total Creatine Kinase 41 U/L (26-308) C-Reactive Protein, Quantitative 10.6 mg/dL (0.00-0.90) H Pro-B-Type Natriuretic Peptide 282 pg/mL (0-125) H Total Protein 7.4 G/DL (6.4-8.2) Albumin 2.7 G/DL (3.4-5.0) L Globulin 4.7 g/dL Albumin/Globulin Ratio 0.6 (1.0-2.7) L Triglycerides Level 66 MG/DL (30-150) Cholesterol Level 108 MG/DL (< 200) LDL Cholesterol 38 mg/dL (<100) HDL Cholesterol 62 MG/DL (40-60) H Cholesterol/HDL Ratio 1.7 (3.3-4.4) L Vitamin B12 Level 649 PG/ML (193-986) Folate 4.7 NG/ML (8.6-58.9) L Free Thyroxine 1.42 NG/DL (0.76-1.46) Microbiology Date/Time Source Procedure Growth Status 02/08/19 22:01 Urine,Clean Catch Urine Culture - Preliminary Gram Negative Bacillus 1 Resulted Objective HEAD AND NECK: No JVD or carotid bruit. LUNGS: Clear. CARDIOVASCULAR: Regular S1 and S2 with no gallop or murmur. ABDOMEN: Morbidly obese. EXTREMITIES: 1+ pitting edema. Ian Kaminski MD Feb 10, 2019 11:05
--- NOTE | 2019-02-10 11:11 | Hematology/Onc Progress Note ---
Assessment/Plan Assessment/Plan Assessment and Recs: # Anemia of chronic disease (or of iron deficiency) due to underlying chronic medical issues, multifactorial --> Anemia workup has been ordered, rule out gi bleed --> No evidence of hemolysis is noted, peripheral smear has been reviewed. --> Hgb goal >7. Transfuse prn. --> Epogen or iron at this time is not particularly indicated --> Medications have been reviewed --> low threshold for gi evaluation in case has occult + --> bone marrow biopsy is not indicated given the other more likely causes # Eosinophilia -- elevated wbc noted and eosinophil % is elevated as well --> rule out underlying infection, as per ID recs, abx as required --> no evidence of allergic reaction, common cause --> medications have been reviewed --> does not have a history of malignancy, no evidence of lymphoma, common cause --> rule out adrenal insufficiency, no recent steriod use is noted --> obtain stool O&P rule out parasitic infections and/or cocci --> if persists consider CT scan, bone marrow biopsy or LP as required --> trend eosinophil % # Urinary tract infection --> on abx as per ID # Hypocalcemia -- Ca++ repleted # Hypotension on IVF, given bolus The timing of this note does not necessarily reflect the time of the patient was seen. GREATLY APPRECIATE CONSULTATION. Subjective Allergies: Coded Allergies: No Known Allergies (Unverified , 02/01/15) Subjective 02/10: Pt is awake and oriented x4. Pt tolerating well, no signs of respiratory distress. Objective Objective Current Medications Medications (Trade) Dose Ordered Sig/Lora Route PRN Reason Start Time Stop Time Status Last Admin Dose Admin Acetaminophen (Tylenol) 500 mg Q4H PRN ORAL Mild Pain/Temp > 100.5 02/09/19 02:00 03/11/19 01:59 02/09/19 14:43 Amlodipine Besylate (Norvasc) 10 mg DAILY ORAL 02/10/19 09:00 03/12/19 08:59 02/10/19 09:11 Apixaban (Eliquis) 10 mg BID ORAL 02/09/19 18:00 03/11/19 17:59 02/10/19 09:09 Aspirin (Ecotrin) 81 mg DAILY ORAL 02/10/19 09:00 03/12/19 08:59 02/10/19 09:09 Atorvastatin Calcium (Lipitor) 20 mg BEDTIME ORAL 02/09/19 21:00 03/11/19 20:59 02/09/19 21:03 Ceftriaxone Sodium 1 gm/ Dextrose 55 ml @ 110 mls/hr Q24H IVPB 02/09/19 22:00 02/16/19 21:59 02/09/19 21:01 Famotidine (Pepcid) 20 mg BID ORAL 02/09/19 18:00 03/11/19 17:59 02/10/19 09:17 Folic Acid (Folate) 1 mg DAILY ORAL 02/10/19 09:00 03/12/19 08:59 02/10/19 09:11 Gabapentin (Neurontin) 300 mg BEDTIME ORAL 02/09/19 21:00 03/11/19 20:59 02/09/19 21:03 Iron Sucrose 100 mg/Sodium Chloride 60 ml @ 240 mls/hr BEDTIME IV 02/10/19 21:00 02/14/19 21:14 Losartan Potassium (Cozaar) 50 mg EVERY 12 HOURS ORAL 02/09/19 21:00 03/11/19 20:59 02/10/19 09:10 Magnesium Sulfate 100 ml @ 100 mls/hr Q1H IVPB 02/10/19 10:00 02/10/19 11:59 UNV Metoprolol Tartrate (Lopressor) 50 mg Q12HR ORAL 02/09/19 21:00 03/11/19 20:59 02/10/19 09:09 Ondansetron HCl (Zofran) 4 mg Q6H PRN IVP Nausea & Vomiting 02/09/19 02:00 03/11/19 01:59 Potassium Phosphate 20 mm/ Sodium Chloride 281.6667 ml @ 46.944 m... ONCE ONCE IV 02/10/19 12:00 02/10/19 17:59 Sodium Chloride 1,000 ml @ 75 mls/hr [id number] IV 02/09/19 03:00 03/11/19 02:59 02/10/19 05:44 Trazodone HCl (Desyrel) 150 mg BEDTIME ORAL 02/09/19 21:00 03/11/19 20:59 02/09/19 21:02 Last 24 Hour Vital Signs Date Time Temp Pulse Resp B/P (MAP) Pulse Ox O2 Delivery O2 Flow Rate FiO2 02/10/19 09:11 64 149/90 02/10/19 09:10 149/90 02/10/19 09:09 63 149/90 02/10/19 08:00 Room Air 02/10/19 08:00 97.9 68 22 129/69 (89) 96 02/10/19 07:43 63 02/10/19 04:00 98.9 64 20 126/71 (89) 96 02/10/19 04:00 Room Air 02/10/19 03:31 62 02/10/19 00:00 96.4 60 20 132/68 (89) 96 02/10/19 00:00 Room Air 02/09/19 23:24 65 02/09/19 21:03 80 118/72 02/09/19 21:02 118/72 02/09/19 20:00 97.6 84 20 118/64 (82) 97 02/09/19 20:00 Room Air 02/09/19 19:30 Room Air 02/09/19 19:21 70 02/09/19 16:00 98.6 60 20 137/70 (92) 97 02/09/19 16:00 73 02/09/19 16:00 Room Air 02/09/19 12:00 56 02/09/19 12:00 Room Air 02/09/19 12:00 98.6 61 20 134/72 (92) 94 02/09/19 08:00 97.5 61 20 122/69 (86) 96 02/09/19 08:00 Room Air 02/09/19 07:53 61 02/09/19 04:00 Room Air 02/09/19 04:00 97.5 63 20 131/55 (80) 96 02/09/19 01:53 66 02/09/19 01:51 Room Air 02/09/19 01:25 98.1 68 20 107/66 (80) 98 02/09/19 01:15 98.4 60 18 108/61 98 Room Air 02/09/19 01:15 98.4 60 18 108/61 98 Room Air 02/08/19 22:55 98.4 85 18 105/66 96 Room Air 02/08/19 22:55 85 18 Room Air 02/08/19 21:16 98.4 85 18 105/66 (79) 96 Room Air Intake and Output 02/09/19 02/10/19 19:00 07:00 Intake Total 520 ml 1202.50 ml Output Total 400 ml 1775 ml Balance 120 ml -572.50 ml Intake Oral 240 ml IV Total 520 ml 962.50 ml Output Urine Total 400 ml 1775 ml # Voids 1 Labs Test 02/08/19 21:35 02/08/19 22:01 02/09/19 03:55 02/09/19 12:45 White Blood Count 11.7 K/UL (4.8-10.8) 11.6 K/UL (4.8-10.8) Red Blood Count 4.16 M/UL (4.20-5.40) 4.02 M/UL (4.20-5.40) Hemoglobin 10.7 G/DL (12.0-16.0) 10.6 G/DL (12.0-16.0) Hematocrit 35.2 % (37.0-47.0) 34.4 % (37.0-47.0) Mean Corpuscular Volume 85 FL (80-99) 86 FL (80-99) Mean Corpuscular Hemoglobin 25.7 PG (27.0-31.0) 26.4 PG (27.0-31.0) Mean Corpuscular Hemoglobin Concent 30.3 G/DL (32.0-36.0) 30.8 G/DL (32.0-36.0) Red Cell Distribution Width 16.9 % (11.6-14.8) 17.2 % (11.6-14.8) Platelet Count 188 K/UL (150-450) 183 K/UL (150-450) Mean Platelet Volume 8.6 FL (6.5-10.1) 9.1 FL (6.5-10.1) Neutrophils (%) (Auto) 58.1 % (45.0-75.0) 60.6 % (45.0-75.0) Lymphocytes (%) (Auto) 26.4 % (20.0-45.0) 26.1 % (20.0-45.0) Monocytes (%) (Auto) 9.5 % (1.0-10.0) 8.2 % (1.0-10.0) Eosinophils (%) (Auto) 4.2 % (0.0-3.0) 4.5 % (0.0-3.0) Basophils (%) (Auto) 1.9 % (0.0-2.0) 0.6 % (0.0-2.0) Sodium Level 142 MMOL/L (136-145) 139 MMOL/L (136-145) Potassium Level 3.6 MMOL/L (3.5-5.1) 3.6 MMOL/L (3.5-5.1) Chloride Level 105 MMOL/L (98-107) 105 MMOL/L (98-107) Carbon Dioxide Level 33 MMOL/L (21-32) 28 MMOL/L (21-32) Anion Gap 4 mmol/L (5-15) 6 mmol/L (5-15) Blood Urea Nitrogen 21 mg/dL (7-18) 18 mg/dL (7-18) Creatinine 1.3 MG/DL (0.55-1.30) 1.0 MG/DL (0.55-1.30) Estimat Glomerular Filtration Rate 50.1 mL/min (>60) > 60 mL/min (>60) Glucose Level 107 MG/DL (74-106) 92 MG/DL (74-106) Lactic Acid Level 1.30 mmol/L (0.4-2.0) Calcium Level 8.3 MG/DL (8.5-10.1) 8.2 MG/DL (8.5-10.1) Total Bilirubin 0.4 MG/DL (0.2-1.0) 0.3 MG/DL (0.2-1.0) Aspartate Amino Transf (AST/SGOT) 13 U/L (15-37) 13 U/L (15-37) Alanine Aminotransferase (ALT/SGPT) 26 U/L (12-78) 20 U/L (12-78) Alkaline Phosphatase 66 U/L (46-116) 67 U/L (46-116) Total Creatine Kinase 18 U/L (26-308) Creatine Kinase MB 0.5 NG/ML (0.0-3.6) Creatine Kinase MB Relative Index 2.7 Troponin I 0.001 ng/mL (0.000-0.056) 0.001 ng/mL (0.000-0.056) Total Protein 6.9 G/DL (6.4-8.2) 6.6 G/DL (6.4-8.2) Albumin 2.4 G/DL (3.4-5.0) 2.4 G/DL (3.4-5.0) Globulin 4.5 g/dL 4.2 g/dL Albumin/Globulin Ratio 0.5 (1.0-2.7) 0.6 (1.0-2.7) Urine Color Yellow Urine Appearance Slightly cloudy Urine pH 5 (4.5-8.0) Urine Specific [place] 1.020 (1.005-1.035) Urine Protein 2+ (NEGATIVE) Urine Glucose (UA) Negative (NEGATIVE) Urine Ketones Negative (NEGATIVE) Urine Blood 1+ (NEGATIVE) Urine Nitrite Negative (NEGATIVE) Urine Bilirubin Negative (NEGATIVE) Urine Urobilinogen Normal MG/DL (0.0-1.0) Urine Leukocyte Esterase 1+ (NEGATIVE) Urine RBC 0-2 /HPF (0 - 2) Urine WBC 5-10 /HPF (0 - 2) Urine Squamous Epithelial Cells Moderate /LPF (NONE/OCC) Urine Bacteria Moderate /HPF (NONE) Thyroid Stimulating Hormone (TSH) 1.383 uiU/mL (0.358-3.740) Test 02/09/19 18:54 02/10/19 03:22 Troponin I 0.000 ng/mL (0.000-0.056) 0.000 ng/mL (0.000-0.056) White Blood Count 11.2 K/UL (4.8-10.8) Red Blood Count 4.78 M/UL (4.20-5.40) Hemoglobin 12.5 G/DL (12.0-16.0) Hematocrit 41.0 % (37.0-47.0) Mean Corpuscular Volume 86 FL (80-99) Mean Corpuscular Hemoglobin 26.1 PG (27.0-31.0) Mean Corpuscular Hemoglobin Concent 30.4 G/DL (32.0-36.0) Red Cell Distribution Width 17.3 % (11.6-14.8) Platelet Count 188 K/UL (150-450) Mean Platelet Volume 8.6 FL (6.5-10.1) Neutrophils (%) (Auto) 71.3 % (45.0-75.0) Lymphocytes (%) (Auto) 14.7 % (20.0-45.0) Monocytes (%) (Auto) 7.4 % (1.0-10.0) Eosinophils (%) (Auto) 5.5 % (0.0-3.0) Basophils (%) (Auto) 1.1 % (0.0-2.0) Sodium Level 142 MMOL/L (136-145) Potassium Level 3.9 MMOL/L (3.5-5.1) Chloride Level 105 MMOL/L (98-107) Carbon Dioxide Level 25 MMOL/L (21-32) Anion Gap 12 mmol/L (5-15) Blood Urea Nitrogen 11 mg/dL (7-18) Creatinine 0.9 MG/DL (0.55-1.30) Estimat Glomerular Filtration Rate > 60 mL/min (>60) Glucose Level 101 MG/DL (74-106) Hemoglobin A1c 5.6 % (4.3-6.0) Uric Acid 5.6 MG/DL (2.6-7.2) Calcium Level 8.6 MG/DL (8.5-10.1) Phosphorus Level 2.1 MG/DL (2.5-4.9) Magnesium Level 1.7 MG/DL (1.8-2.4) Iron Level 31 ug/dL (50-175) Total Iron Binding Capacity 254 ug/dL (250-450) Percent Iron Saturation 12 % (15-50) Unsaturated Iron Binding 223 ug/dL (112-346) Ferritin 67 NG/ML (8-388) Total Bilirubin 0.3 MG/DL (0.2-1.0) Gamma Glutamyl Transpeptidase 46 U/L (5-85) Aspartate Amino Transf (AST/SGOT) 12 U/L (15-37) Alanine Aminotransferase (ALT/SGPT) 16 U/L (12-78) Alkaline Phosphatase 77 U/L (46-116) Total Creatine Kinase 41 U/L (26-308) C-Reactive Protein, Quantitative 10.6 mg/dL (0.00-0.90) Pro-B-Type Natriuretic Peptide 282 pg/mL (0-125) Total Protein 7.4 G/DL (6.4-8.2) Albumin 2.7 G/DL (3.4-5.0) Globulin 4.7 g/dL Albumin/Globulin Ratio 0.6 (1.0-2.7) Triglycerides Level 66 MG/DL (30-150) Cholesterol Level 108 MG/DL (< 200) LDL Cholesterol 38 mg/dL (<100) HDL Cholesterol 62 MG/DL (40-60) Cholesterol/HDL Ratio 1.7 (3.3-4.4) Vitamin B12 Level 649 PG/ML (193-986) Folate 4.7 NG/ML (8.6-58.9) Free Thyroxine 1.42 NG/DL (0.76-1.46) Height (Feet): 5 Height (Inches): 9.00 Weight (Pounds): 400 Ru Carcamo MD Feb 10, 2019 11:11
[2019-02-10 12:00] VITALS: BP 134/69
[2019-02-10] MEDS ORDERED: Potassium Phosphate 20 MM in NS 275 ML IV ONE (12:00)
[2019-02-10] MEDS ORDERED: Vancomycin 1.25gm Premix IVPB SCH (14:00)
--- NOTE | 2019-02-10 14:41 | NUR ---
*-* INSURANCE *-* UPDATED CLINICALS AND REVIEWS HAVE BEEN FAXED TO: [facility] PLEASE FAX THE REVIEW ONLY FX: [phone]....REVIEW & CLINICAL & BX/MCAL PLEASE FAX THE REVIEW/CLINICAL FX: [phone]...REVIEW/CLINICAL REF# [id number]
--- NOTE | 2019-02-10 14:47 | Nephrology Progress Note ---
Assessment/Plan Problem List: (1) Morbid obesity with BMI of 50.0-59.9, adult (2) Hypertension (3) Anemia (4) Proteinuria Assessment Proteinuria ? Hypoalbuminemia Morbid obesity - r/o Diabetic nephropathy CAD Anemia HTN Smoker Plan Phos , Mag supplement as needed 24 H urine protein keep BP and BS in check continue per consultants Anemia queen Subjective ROS Limited/Unobtainable: No Constitutional: Reports: malaise, weakness Objective Objective Last 24 Hour Vital Signs Date Time Temp Pulse Resp B/P (MAP) Pulse Ox O2 Delivery O2 Flow Rate FiO2 02/10/19 12:00 Room Air 02/10/19 12:00 97.6 67 22 134/69 (90) 94 02/10/19 11:38 65 02/10/19 09:11 64 149/90 02/10/19 09:10 149/90 02/10/19 09:09 63 149/90 02/10/19 08:00 Room Air 02/10/19 08:00 97.9 68 22 129/69 (89) 96 02/10/19 07:43 63 02/10/19 04:00 98.9 64 20 126/71 (89) 96 02/10/19 04:00 Room Air 02/10/19 03:31 62 02/10/19 00:00 96.4 60 20 132/68 (89) 96 02/10/19 00:00 Room Air 02/09/19 23:24 65 02/09/19 21:03 80 118/72 02/09/19 21:02 118/72 02/09/19 20:00 97.6 84 20 118/64 (82) 97 02/09/19 20:00 Room Air 02/09/19 19:30 Room Air 02/09/19 19:21 70 02/09/19 16:00 98.6 60 20 137/70 (92) 97 02/09/19 16:00 73 02/09/19 16:00 Room Air Intake and Output 02/09/19 02/10/19 19:00 07:00 Intake Total 520 ml 1202.50 ml Output Total 400 ml 1775 ml Balance 120 ml -572.50 ml Intake Oral 240 ml IV Total 520 ml 962.50 ml Output Urine Total 400 ml 1775 ml # Voids 1 Laboratory Tests 02/09/19 18:54: Troponin I 0.000 02/10/19 03:22: Troponin I 0.000, White Blood Count 11.2H, Red Blood Count 4.78, Hemoglobin 12.5 , Hematocrit 41.0, Mean Corpuscular Volume 86, Mean Corpuscular Hemoglobin 26.1L , Mean Corpuscular Hemoglobin Concent 30.4L, Red Cell Distribution Width 17.3H, Platelet Count 188, Mean Platelet Volume 8.6, Neutrophils (%) (Auto) 71.3, Lymphocytes (%) (Auto) 14.7L, Monocytes (%) (Auto) 7.4, Eosinophils (%) (Auto) 5.5H, Basophils (%) (Auto) 1.1, Sodium Level 142, Potassium Level 3.9, Chloride Level 105, Carbon Dioxide Level 25, Anion Gap 12, Blood Urea Nitrogen 11, Creatinine 0.9, Estimat Glomerular Filtration Rate > 60, Glucose Level 101, Hemoglobin A1c 5.6, Uric Acid 5.6, Calcium Level 8.6, Phosphorus Level 2.1L, Magnesium Level 1.7L, Iron Level 31L, Total Iron Binding Capacity 254, Percent Iron Saturation 12L, Unsaturated Iron Binding 223, Ferritin 67, Total Bilirubin 0.3, Gamma Glutamyl Transpeptidase 46, Aspartate Amino Transf (AST/SGOT) 12L, Alanine Aminotransferase (ALT/SGPT) 16, Alkaline Phosphatase 77, Total Creatine Kinase 41, C-Reactive Protein, Quantitative 10.6H, Pro-B-Type Natriuretic Peptide 282H, Total Protein 7.4, Albumin 2.7L, Globulin 4.7, Albumin/Globulin Ratio 0.6L, Triglycerides Level 66, Cholesterol Level 108, LDL Cholesterol 38, HDL Cholesterol 62H, Cholesterol/HDL Ratio 1.7L, Vitamin B12 Level 649, Folate 4.7L, Free Thyroxine 1.42 Height (Feet): 5 Height (Inches): 9.00 Weight (Pounds): 400 General Appearance: no apparent distress Cardiovascular: normal rate Respiratory/Chest: decreased breath sounds Abdomen: distended Objective no change Richy Hernandez MD Feb 10, 2019 14:47
[2019-02-10 16:00] VITALS: BP 128/74
--- NOTE | 2019-02-10 18:26 | NUR ---
HAND-OFF: Report given to Paris PABON. Patient in stable condition.
[2019-02-10] MEDS ORDERED: Acetaminophen 500mg (ES) tab ORAL PRN (19:00)
--- NOTE | 2019-02-10 19:41 | NUR ---
report received from Kai PABON and given to Bailee PABON
--- NOTE | 2019-02-10 19:45 | NUR ---
NURSE NOTES: Received report from PEPPER [place]. Patient in bed awake showing no signs of acute distress. Respiration even and non labored on room air. No SOB noted. IV patent and intact. Molina patent intact and draining. 24 hour urine container at bedside and Iced. Call light within reach. Bed in lowest position, wheels locked. All needs attended and met. Will continue to monitor.
[2019-02-10 20:00] VITALS: BP 142/71
[2019-02-10] MEDS ORDERED: Iron Sucrose 100 MG in NS 55 ML IV SCH (21:00)
[2019-02-10] MEDS ORDERED: TraZODone 50mg tab ORAL SCH (21:00)
[2019-02-10] MEDS: Iron Sucrose 100 MG in NS 55 ML IV SCH (21:16)
[2019-02-10] MEDS: Atorvastatin 20mg tab ORAL SCH (21:18)
[2019-02-10] MEDS: cefTRIAXone 1 GM in D5W 55 ML IVPB SCH (22:03)
--- NOTE | 2019-02-10 22:07 | General Progress Note ---
Assessment/Plan Problem List: (1) Chest pain ICD Codes: R07.9 - Chest pain SNOMED: 64702094 (2) Morbid obesity with BMI of 50.0-59.9, adult ICD Codes: E66.01 - Morbid (severe)obesity due to excess calories; Z68.43 - Body mass index (bmi) 50-59.9 , adult SNOMED: 792614717 (3) Hypertension ICD Codes: I10 - Essential (primary) hypertension SNOMED: 57219772 (4) Diarrhea ICD Codes: R19.7 - Diarrhea, unspecified SNOMED: 12816543 (5) Diabetes ICD Codes: E11.9 - Type 2 diabetes mellitus without complications SNOMED: 95383768 (6) ACS (acute coronary syndrome) ICD Codes: I24.9 - ACS (acute coronary syndrome) SNOMED: 328985679 (7) Anemia ICD Codes: D64.9 - Anemia, unspecified SNOMED: 160983961 Status: progressing Assessment/Plan: afebrile no sob r/o acs anemia luti htn cp copd Subjective ROS Limited/Unobtainable: Yes Allergies: Coded Allergies: No Known Allergies (Unverified , 02/01/15) Objective Last 24 Hour Vital Signs Date Time Temp Pulse Resp B/P (MAP) Pulse Ox O2 Delivery O2 Flow Rate FiO2 02/10/19 21:19 70 142/71 02/10/19 21:17 142/71 02/10/19 16:00 Room Air 02/10/19 16:00 98.0 63 23 128/74 (92) 96 02/10/19 15:39 68 02/10/19 12:00 Room Air 02/10/19 12:00 97.6 67 22 134/69 (90) 94 02/10/19 11:38 65 02/10/19 09:11 64 149/90 02/10/19 09:10 149/90 02/10/19 09:09 63 149/90 02/10/19 08:00 Room Air 02/10/19 08:00 97.9 68 22 129/69 (89) 96 02/10/19 07:43 63 02/10/19 04:00 98.9 64 20 126/71 (89) 96 02/10/19 04:00 Room Air 02/10/19 03:31 62 02/10/19 00:00 96.4 60 20 132/68 (89) 96 02/10/19 00:00 Room Air 02/09/19 23:24 65 Intake and Output 02/09/19 02/10/19 18:59 06:59 Intake Total 520 ml 1127.50 ml Output Total 400 ml 1775 ml Balance 120 ml -647.50 ml Intake Oral 240 ml IV Total 520 ml 887.50 ml Output Urine Total 400 ml 1775 ml # Voids 1 Laboratory Tests 02/10/19 03:22: White Blood Count 11.2H, Red Blood Count 4.78, Hemoglobin 12.5, Hematocrit 41.0 , Mean Corpuscular Volume 86, Mean Corpuscular Hemoglobin 26.1L, Mean Corpuscular Hemoglobin Concent 30.4L, Red Cell Distribution Width 17.3H, Platelet Count 188, Mean Platelet Volume 8.6, Neutrophils (%) (Auto) 71.3, Lymphocytes (%) (Auto) 14.7L, Monocytes (%) (Auto) 7.4, Eosinophils (%) (Auto) 5.5H, Basophils (%) (Auto) 1.1, Sodium Level 142, Potassium Level 3.9, Chloride Level 105, Carbon Dioxide Level 25, Anion Gap 12, Blood Urea Nitrogen 11, Creatinine 0.9, Estimat Glomerular Filtration Rate > 60, Glucose Level 101, Hemoglobin A1c 5.6, Uric Acid 5.6, Calcium Level 8.6, Phosphorus Level 2.1L, Magnesium Level 1.7L, Iron Level 31L, Total Iron Binding Capacity 254, Percent Iron Saturation 12L, Unsaturated Iron Binding 223, Ferritin 67, Total Bilirubin 0.3, Gamma Glutamyl Transpeptidase 46, Aspartate Amino Transf (AST/SGOT) 12L, Alanine Aminotransferase (ALT/SGPT) 16, Alkaline Phosphatase 77, Total Creatine Kinase 41, Troponin I 0.000, C-Reactive Protein, Quantitative 10.6H, Pro-B-Type Natriuretic Peptide 282H, Total Protein 7.4, Albumin 2.7L, Globulin 4.7, Albumin /Globulin Ratio 0.6L, Triglycerides Level 66, Cholesterol Level 108, LDL Cholesterol 38, HDL Cholesterol 62H, Cholesterol/HDL Ratio 1.7L, Vitamin B12 Level 649, Folate 4.7L, Free Thyroxine 1.42 Height (Feet): 5 Height (Inches): 9.00 Weight (Pounds): 400 Cardiovascular: normal peripheral pulses Respiratory/Chest: lungs clear Abdomen: soft Kiki Valero MD Feb 10, 2019 22:07
[2019-02-11] VITALS: BP 130/72
--- NOTE | 2019-02-11 01:30 | Progress Note ---
DATE: 02/10/2019 SUBJECTIVE: The patient is presents with depressed mood. The patient has difficulty sleeping last night. Compliant with medications. The patient her on Latuda from home. MENTAL STATUS EXAMINATION: The patient is morbidly obese. Alert and oriented times self. Mood is depressed. Affect is constricted, congruent with mood. Thought process is linear. Thought content, no suicidal or homicidal ideation. Paranoid ideation. Insight and judgment is fair. ASSESSMENT: Stable. PLAN: We will continue Neurontin, continue , continue Latuda. We will continue to follow and readjust the medications. Angela Dubon M.D. DR: KARINE JOB#: [id number] CC:
[2019-02-11] MEDS ORDERED: Vancomycin 1.25gm Premix 275 ML IVPB SCH (02:00)
[2019-02-11 04:00] VITALS: BP 128/61
[2019-02-11 06:38] LABS: BASOPHILS % (AUTO) 1.2 % (0.0-2.0); EOSINOPHILS % (AUTO) 9.2 % (0.0-3.0); HEMATOCRIT 35.6 % (37.0-47.0); HEMOGLOBIN 11.1 G/DL (12.0-16.0); LYMPHOCYTES % (AUTO) 14.8 % (20.0-45.0); MEAN CORPUSCULAR VOLUME 86 FL (80-99); MONOCYTES % (AUTO) 9.8 % (1.0-10.0); NEUTROPHILS % (AUTO) 64.9 % (45.0-75.0); PLATELET COUNT 205 K/UL (150-450); RED BLOOD COUNT 4.16 M/UL (4.20-5.40); RED CELL DISTRIBUTION WIDTH 17.4 % (11.6-14.8); WHITE BLOOD COUNT 10.8 K/UL (4.8-10.8)
[2019-02-11 07:22] LABS: ALANINE AMINOTRANSFERASE 14 U/L (12-78); ALBUMIN 2.3 G/DL (3.4-5.0); ALBUMIN/GLOBULIN RATIO 0.5 (1.0-2.7); ALKALINE PHOSPHATASE 67 U/L (46-116); ANION GAP 9 mmol/L (5-15); ASPARTATE AMINO TRANSFERASE 13 U/L (15-37); BILIRUBIN,TOTAL 0.3 MG/DL (0.2-1.0); BLOOD UREA NITROGEN 7 mg/dL (7-18); CALCIUM 8.5 MG/DL (8.5-10.1); CARBON DIOXIDE 27 MMOL/L (21-32); CHLORIDE 104 MMOL/L (98-107); CREATININE 0.9 MG/DL (0.55-1.30); POTASSIUM 3.9 MMOL/L (3.5-5.1); SODIUM 140 MMOL/L (136-145)
--- NOTE | 2019-02-11 07:35 | NUR ---
HAND-OFF: Report given to Paris PABON.
--- NOTE | 2019-02-11 07:36 | NUR ---
Received report from PEPPER [place]. Patient in bed resting with closed eyes no s/s of pain or acute distress. Respiration even and non labored on room air. No SOB noted. IV patent and intact. Molina patent intact and draining. 24 hour urine container at bedside and Iced. Call light and frequent used object are within reach. Bed in lowest position, wheels locked. Will continue to monitor.
[2019-02-11 08:01] VITALS: BP 101/69
--- NOTE | 2019-02-11 08:04 | NUR ---
CASE MANAGEMENT: REVIEW 02/11/2019 SI:DEHYDRATION T 97.6 HR 61 RR 20 B/P 101/69 SATS 97% ON RA AST 13 IS: IVF @ 75 mL/HR COZAAR PO Q12H LIPITOR PO QHS TRAZODONE PO QHS GABAPENTIN PO QHS VENOFER IV QHS ELIQUIS PO BID PEPCID PO BID ASA PO QD NORVASC PO QD SODIUM PHOS IV X1 K PHOS IV X1 LOPRESSOR PO Q12H CEFTRIAXONE IV Q24H TELE STATUS DCP: PATIENT TO BE DISCHARGED TO HOME ONCE MEDICALLY CLEARED. PLAN OF CARE: VENOUS DUPLEX >> ACUTE THROMBUS IN THE RIGHT COMMON FEMORAL TO THE PROXIMAL SUPERFICIAL FEMORAL VEINS. WOUND CARE 2D ECHO (EF 55%)
--- NOTE | 2019-02-11 08:07 | NUR ---
INSURANCE REVIEWS HAVE BEEN FAXED TO: [facility] PLEASE FAX THE REVIEW ONLY FX: [phone]....REVIEW & CLINICAL & BX/MCAL PLEASE FAX THE REVIEW/CLINICAL FX: [phone]...REVIEW/CLINICAL REF# [id number]
[2019-02-11] MEDS: Aspirin EC 81mg tab ORAL SCH (08:14)
[2019-02-11] MEDS: Eliquis 5mg tablet ORAL SCH ×2 (08:14→17:09)
[2019-02-11] MEDS: Losartan 50mg tab ORAL SCH ×2 (08:14→21:19)
[2019-02-11] MEDS: Metoprolol Tartrate 50mg tab ORAL SCH ×2 (08:15→21:19)
--- NOTE | 2019-02-11 08:31 | General Progress Note ---
Assessment/Plan Problem List: (1) Anemia ICD Codes: D64.9 - Anemia, unspecified SNOMED: 343312223 (2) Diarrhea ICD Codes: R19.7 - Diarrhea, unspecified SNOMED: 69771675 (3) Hypertension ICD Codes: I10 - Essential (primary) hypertension SNOMED: 35211487 (4) Morbid obesity with BMI of 50.0-59.9, adult ICD Codes: E66.01 - Morbid (severe)obesity due to excess calories; Z68.43 - Body mass index (bmi) 50-59.9 , adult SNOMED: 159729796 (5) Tobacco abuse ICD Codes: Z72.0 - Tobacco use SNOMED: 62601579 (6) Diabetes ICD Codes: E11.9 - Type 2 diabetes mellitus without complications SNOMED: 07399760 (7) Sepsis ICD Codes: A41.9 - Sepsis, unspecified organism SNOMED: 67572926 (8) UTI (urinary tract infection) ICD Codes: N39.0 - Urinary tract infection, site not specified SNOMED: 13646513 Status: progressing Assessment/Plan: stool studies iv iron fu stool ob folic acid fu cardiology recs GI procedures if needed bowel regimen Subjective ROS Limited/Unobtainable: Yes Allergies: Coded Allergies: No Known Allergies (Unverified , 02/01/15) Objective Last 24 Hour Vital Signs Date Time Temp Pulse Resp B/P (MAP) Pulse Ox O2 Delivery O2 Flow Rate FiO2 02/11/19 08:15 61 101/69 02/11/19 08:15 61 101/69 02/11/19 08:14 101/69 02/11/19 08:02 Room Air 02/11/19 08:01 97.6 61 20 101/69 (80) 97 02/11/19 04:00 98.0 72 20 128/61 (83) 96 02/11/19 04:00 66 02/11/19 04:00 Room Air 02/11/19 00:00 Room Air 02/11/19 00:00 68 02/11/19 00:00 98.5 70 20 130/72 (91) 100 02/10/19 21:19 70 142/71 02/10/19 21:17 142/71 02/10/19 20:00 97.6 70 20 142/71 (94) 95 02/10/19 20:00 68 02/10/19 20:00 Room Air 02/10/19 16:00 Room Air 02/10/19 16:00 98.0 63 23 128/74 (92) 96 02/10/19 15:39 68 02/10/19 12:00 Room Air 02/10/19 12:00 97.6 67 22 134/69 (90) 94 02/10/19 11:38 65 02/10/19 09:11 64 149/90 02/10/19 09:10 149/90 02/10/19 09:09 63 149/90 Intake and Output 02/10/19 02/11/19 19:00 07:00 Intake Total 1319.066 ml Output Total 1250 ml 100 ml Balance 69.066 ml -100 ml IV Total 1319.066 ml Output Urine Total 1250 ml 100 ml # Voids 1 Laboratory Tests 02/11/19 05:05: White Blood Count 10.8, Red Blood Count 4.16L, Hemoglobin 11.1L, Hematocrit 35.6L, Mean Corpuscular Volume 86, Mean Corpuscular Hemoglobin 26.6L, Mean Corpuscular Hemoglobin Concent 31.1L, Red Cell Distribution Width 17.4H, Platelet Count 205, Mean Platelet Volume 9.0, Neutrophils (%) (Auto) 64.9, Lymphocytes (%) (Auto) 14.8L, Monocytes (%) (Auto) 9.8, Eosinophils (%) (Auto) 9.2H, Basophils (%) (Auto) 1.2, Sodium Level 140, Potassium Level 3.9, Chloride Level 104, Carbon Dioxide Level 27, Anion Gap 9, Blood Urea Nitrogen 7, Creatinine 0.9, Estimat Glomerular Filtration Rate > 60, Glucose Level 98, Calcium Level 8.5, Total Bilirubin 0.3, Aspartate Amino Transf (AST/SGOT) 13L, Alanine Aminotransferase (ALT/SGPT) 14, Alkaline Phosphatase 67, Total Protein 6.7, Albumin 2.3L, Globulin 4.4, Albumin/Globulin Ratio 0.5L Height (Feet): 5 Height (Inches): 9.00 Weight (Pounds): 400 General Appearance: alert EENT: normal ENT inspection Neck: supple Cardiovascular: normal rate Respiratory/Chest: decreased breath sounds Abdomen: normal bowel sounds, non tender, soft Extremities: non-tender Vosoghi,Faisal MD Feb 11, 2019 08:31
[2019-02-11] MEDS: Lactulose 10gm/15ml UDC ORAL SCH ×3 (09:56→17:09)
[2019-02-11] MEDS: Docusate 100mg cap ORAL SCH ×2 (09:56→17:09)
--- NOTE | 2019-02-11 10:30 | Infectious Diseases Prog Note ---
Assessment/Plan Assessment/Plan Impression: Klebsiella UTI. Bacteremia with likely Coagulase neg staph DVT of R leg gastroenteritis with dehydration. diabetes mellitus, Morbid obesity COPD, anemia, hypertension, history of coronary artery disease, history of CVA. RECOMMENDATION: We will follow up the cultures. We will continue with ceftriaxone. May discontinue Vancomycin Subjective ROS Limited/Unobtainable: No Constitutional: Reports: other - dosen't feel good Respiratory: Reports: no symptoms Cardiovascular: Reports: chest pain Gastrointestinal/Abdominal: Reports: no symptoms Genitourinary: Reports: no symptoms Musculoskeletal: Reports: pain Allergies: Coded Allergies: No Known Allergies (Unverified , 02/01/15) Objective Vital Signs Last 24 Hour Vital Signs Date Time Temp Pulse Resp B/P (MAP) Pulse Ox O2 Delivery O2 Flow Rate FiO2 02/11/19 08:15 61 101/69 02/11/19 08:15 61 101/69 02/11/19 08:14 101/69 02/11/19 08:02 Room Air 02/11/19 08:01 97.6 61 20 101/69 (80) 97 02/11/19 08:00 70 02/11/19 04:00 98.0 72 20 128/61 (83) 96 02/11/19 04:00 66 02/11/19 04:00 Room Air 02/11/19 00:00 Room Air 02/11/19 00:00 68 02/11/19 00:00 98.5 70 20 130/72 (91) 100 02/10/19 21:19 70 142/71 02/10/19 21:17 142/71 02/10/19 20:00 97.6 70 20 142/71 (94) 95 02/10/19 20:00 68 02/10/19 20:00 Room Air 02/10/19 16:00 Room Air 02/10/19 16:00 98.0 63 23 128/74 (92) 96 02/10/19 15:39 68 02/10/19 12:00 Room Air 02/10/19 12:00 97.6 67 22 134/69 (90) 94 02/10/19 11:38 65 Height (Feet): 5 Height (Inches): 9.00 Weight (Pounds): 400 HEENT: mucous membranes moist Respiratory/Chest: lungs clear Cardiovascular: normal rate Abdomen: soft, non tender Extremities: other - trace edema Neurologic/Psychiatric: alert, oriented x 3, responsive Microbiology Date/Time Source Procedure Growth Status 02/08/19 21:40 Blood Blood Culture - Preliminary Gram Positive Cocci Resulted 02/08/19 21:30 Blood Blood Culture - Preliminary Gram Positive Cocci Resulted 02/08/19 22:01 Urine,Clean Catch Urine Culture - Final Klebsiella Pneumoniae Complete Laboratory Tests Test 02/11/19 05:05 White Blood Count 10.8 K/UL (4.8-10.8) Red Blood Count 4.16 M/UL (4.20-5.40) L Hemoglobin 11.1 G/DL (12.0-16.0) L Hematocrit 35.6 % (37.0-47.0) L Mean Corpuscular Volume 86 FL (80-99) Mean Corpuscular Hemoglobin 26.6 PG (27.0-31.0) L Mean Corpuscular Hemoglobin Concent 31.1 G/DL (32.0-36.0) L Red Cell Distribution Width 17.4 % (11.6-14.8) H Platelet Count 205 K/UL (150-450) Mean Platelet Volume 9.0 FL (6.5-10.1) Neutrophils (%) (Auto) 64.9 % (45.0-75.0) Lymphocytes (%) (Auto) 14.8 % (20.0-45.0) L Monocytes (%) (Auto) 9.8 % (1.0-10.0) Eosinophils (%) (Auto) 9.2 % (0.0-3.0) H Basophils (%) (Auto) 1.2 % (0.0-2.0) Sodium Level 140 MMOL/L (136-145) Potassium Level 3.9 MMOL/L (3.5-5.1) Chloride Level 104 MMOL/L (98-107) Carbon Dioxide Level 27 MMOL/L (21-32) Anion Gap 9 mmol/L (5-15) Blood Urea Nitrogen 7 mg/dL (7-18) Creatinine 0.9 MG/DL (0.55-1.30) Estimat Glomerular Filtration Rate > 60 mL/min (>60) Glucose Level 98 MG/DL (74-106) Calcium Level 8.5 MG/DL (8.5-10.1) Total Bilirubin 0.3 MG/DL (0.2-1.0) Aspartate Amino Transf (AST/SGOT) 13 U/L (15-37) L Alanine Aminotransferase (ALT/SGPT) 14 U/L (12-78) Alkaline Phosphatase 67 U/L (46-116) Total Protein 6.7 G/DL (6.4-8.2) Albumin 2.3 G/DL (3.4-5.0) L Globulin 4.4 g/dL Albumin/Globulin Ratio 0.5 (1.0-2.7) L Current Medications Medications (Trade) Dose Ordered Sig/Lora Route PRN Reason Start Time Stop Time Status Last Admin Dose Admin Acetaminophen (Tylenol) 500 mg Q4H PRN ORAL Mild Pain/Temp > 100.5 02/10/19 19:00 03/11/19 18:59 Amlodipine Besylate (Norvasc) 10 mg DAILY ORAL 02/11/19 09:00 03/12/19 08:59 02/11/19 08:15 Apixaban (Eliquis) 10 mg BID ORAL 02/11/19 09:00 03/11/19 17:59 02/11/19 08:14 Aspirin (Ecotrin) 81 mg DAILY ORAL 02/11/19 09:00 03/12/19 08:59 02/11/19 08:14 Atorvastatin Calcium (Lipitor) 20 mg BEDTIME ORAL 02/10/19 21:00 03/11/19 20:59 02/10/19 21:18 Ceftriaxone Sodium 1 gm/ Dextrose 55 ml @ 110 mls/hr Q24H IVPB 02/10/19 22:00 02/16/19 21:59 02/10/19 22:03 Docusate Sodium (Colace) 100 mg TWICE A DAY ORAL 02/11/19 09:00 03/13/19 08:59 02/11/19 09:56 Famotidine (Pepcid) 20 mg BID ORAL 02/11/19 09:00 03/11/19 17:59 02/11/19 08:13 Folic Acid (Folate) 2 mg DAILY ORAL 02/11/19 09:00 03/13/19 08:59 02/11/19 08:13 Gabapentin (Neurontin) 300 mg BEDTIME ORAL 02/10/19 21:00 03/11/19 20:59 02/10/19 21:17 Iron Sucrose 100 mg/Sodium Chloride 60 ml @ 240 mls/hr BEDTIME IV 02/10/19 21:00 02/14/19 21:14 02/10/19 21:16 Lactulose (Cephulac) 10 gm THREE TIMES A DAY ORAL 02/11/19 09:00 03/13/19 08:59 02/11/19 09:56 Losartan Potassium (Cozaar) 50 mg EVERY 12 HOURS ORAL 02/10/19 21:00 03/11/19 20:59 02/11/19 08:14 Metoprolol Tartrate (Lopressor) 50 mg Q12HR ORAL 02/10/19 21:00 03/11/19 20:59 02/11/19 08:15 Ondansetron HCl (Zofran) 4 mg Q6H PRN IVP Nausea & Vomiting 02/10/19 19:00 03/11/19 18:59 Polyethylene Glycol (Miralax) 17 gm BEDTIME ORAL 02/11/19 21:00 03/13/19 20:59 Sodium Chloride 1,000 ml @ 75 mls/hr [id number] IV 02/10/19 19:00 03/11/19 18:59 02/11/19 08:15 Trazodone HCl (Desyrel) 150 mg BEDTIME ORAL 02/11/19 21:00 03/11/19 20:59 Vancomycin HCl (Vanco rx to dose) 1 ea DAILY PRN MISC Per rx protocol 02/10/19 19:00 03/12/19 18:59 Vancomycin HCl/ Dextrose 275 ml @ 183.333 mls/hr Q12HR@0200,1400 IVPB 02/11/19 02:00 02/15/19 13:59 02/11/19 02:28 Jack Andrews MD Feb 11, 2019 10:30
--- NOTE | 2019-02-11 11:47 | Hematology/Onc Progress Note ---
Assessment/Plan Assessment/Plan Assessment and Recs: # Anemia of chronic disease (or of iron deficiency) due to underlying chronic medical issues, multifactorial --> Anemia workup has been ordered, rule out gi bleed --> No evidence of hemolysis is noted, peripheral smear has been reviewed. --> Hgb goal >7. Transfuse prn. --> HGB 11.1 --> Epogen or iron at this time is not particularly indicated --> Medications have been reviewed --> low threshold for gi evaluation in case has occult + --> bone marrow biopsy is not indicated given the other more likely causes # Eosinophilia -- elevated wbc noted and eosinophil % is elevated as well --> rule out underlying infection + UTI, as per ID recs, abx as required --> no evidence of allergic reaction, common cause --> medications have been reviewed --> does not have a history of malignancy, no evidence of lymphoma, common cause --> rule out adrenal insufficiency, no recent steriod use is noted --> obtain stool O&P rule out parasitic infections and/or cocci --> if persists consider CT scan, bone marrow biopsy or LP as required --> trend eosinophil % # Urinary tract infection --> on abx as per ID # Hypocalcemia -- Ca++ repleted # Hypotension on IVF, given bolus --> Improved. The timing of this note does not necessarily reflect the time of the patient was seen. GREATLY APPRECIATE CONSULTATION. Subjective Allergies: Coded Allergies: No Known Allergies (Unverified , 02/01/15) Subjective 02/10: Pt is awake and oriented x4. Pt tolerating well, no signs of respiratory distress. 02/11: 24 hour urine in progress, no acute distress. Objective Objective Current Medications Medications (Trade) Dose Ordered Sig/Lora Route PRN Reason Start Time Stop Time Status Last Admin Dose Admin Acetaminophen (Tylenol) 500 mg Q4H PRN ORAL Mild Pain/Temp > 100.5 02/10/19 19:00 03/11/19 18:59 Amlodipine Besylate (Norvasc) 10 mg DAILY ORAL 02/11/19 09:00 03/12/19 08:59 02/11/19 08:15 Apixaban (Eliquis) 10 mg BID ORAL 02/11/19 09:00 03/11/19 17:59 02/11/19 08:14 Aspirin (Ecotrin) 81 mg DAILY ORAL 02/11/19 09:00 03/12/19 08:59 02/11/19 08:14 Atorvastatin Calcium (Lipitor) 20 mg BEDTIME ORAL 02/10/19 21:00 03/11/19 20:59 02/10/19 21:18 Ceftriaxone Sodium 1 gm/ Dextrose 55 ml @ 110 mls/hr Q24H IVPB 02/10/19 22:00 02/16/19 21:59 02/10/19 22:03 Docusate Sodium (Colace) 100 mg TWICE A DAY ORAL 02/11/19 09:00 03/13/19 08:59 02/11/19 09:56 Famotidine (Pepcid) 20 mg BID ORAL 02/11/19 09:00 03/11/19 17:59 02/11/19 08:13 Folic Acid (Folate) 2 mg DAILY ORAL 02/11/19 09:00 03/13/19 08:59 02/11/19 08:13 Gabapentin (Neurontin) 300 mg BEDTIME ORAL 02/10/19 21:00 03/11/19 20:59 02/10/19 21:17 Iron Sucrose 100 mg/Sodium Chloride 60 ml @ 240 mls/hr BEDTIME IV 02/10/19 21:00 02/14/19 21:14 02/10/19 21:16 Lactulose (Cephulac) 10 gm THREE TIMES A DAY ORAL 02/11/19 09:00 03/13/19 08:59 02/11/19 09:56 Losartan Potassium (Cozaar) 50 mg EVERY 12 HOURS ORAL 02/10/19 21:00 03/11/19 20:59 02/11/19 08:14 Metoprolol Tartrate (Lopressor) 50 mg Q12HR ORAL 02/10/19 21:00 03/11/19 20:59 02/11/19 08:15 Ondansetron HCl (Zofran) 4 mg Q6H PRN IVP Nausea & Vomiting 02/10/19 19:00 03/11/19 18:59 Polyethylene Glycol (Miralax) 17 gm BEDTIME ORAL 02/11/19 21:00 03/13/19 20:59 Sodium Chloride 1,000 ml @ 75 mls/hr [id number] IV 02/10/19 19:00 03/11/19 18:59 02/11/19 08:15 Trazodone HCl (Desyrel) 150 mg BEDTIME ORAL 02/11/19 21:00 03/11/19 20:59 Last 24 Hour Vital Signs Date Time Temp Pulse Resp B/P (MAP) Pulse Ox O2 Delivery O2 Flow Rate FiO2 02/11/19 08:15 61 101/69 02/11/19 08:15 61 101/69 02/11/19 08:14 101/69 02/11/19 08:02 Room Air 02/11/19 08:01 97.6 61 20 101/69 (80) 97 02/11/19 08:00 70 02/11/19 04:00 98.0 72 20 128/61 (83) 96 02/11/19 04:00 66 02/11/19 04:00 Room Air 02/11/19 00:00 Room Air 02/11/19 00:00 68 02/11/19 00:00 98.5 70 20 130/72 (91) 100 02/10/19 21:19 70 142/71 02/10/19 21:17 142/71 02/10/19 20:00 97.6 70 20 142/71 (94) 95 02/10/19 20:00 68 02/10/19 20:00 Room Air 02/10/19 16:00 Room Air 02/10/19 16:00 98.0 63 23 128/74 (92) 96 02/10/19 15:39 68 02/10/19 12:00 Room Air 02/10/19 12:00 97.6 67 22 134/69 (90) 94 02/10/19 11:38 65 02/10/19 09:11 64 149/90 02/10/19 09:10 149/90 02/10/19 09:09 63 149/90 02/10/19 08:00 Room Air 02/10/19 08:00 97.9 68 22 129/69 (89) 96 02/10/19 07:43 63 02/10/19 04:00 98.9 64 20 126/71 (89) 96 02/10/19 04:00 Room Air 02/10/19 03:31 62 02/10/19 00:00 96.4 60 20 132/68 (89) 96 02/10/19 00:00 Room Air 02/09/19 23:24 65 02/09/19 21:03 80 118/72 02/09/19 21:02 118/72 02/09/19 20:00 97.6 84 20 118/64 (82) 97 02/09/19 20:00 Room Air 02/09/19 19:30 Room Air 02/09/19 19:21 70 02/09/19 16:00 98.6 60 20 137/70 (92) 97 02/09/19 16:00 73 02/09/19 16:00 Room Air 02/09/19 12:00 56 02/09/19 12:00 Room Air 02/09/19 12:00 98.6 61 20 134/72 (92) 94 Intake and Output 02/10/19 02/11/19 19:00 07:00 Intake Total 1319.066 ml 240 ml Output Total 1250 ml 100 ml Balance 69.066 ml 140 ml Intake Oral 240 ml IV Total 1319.066 ml Output Urine Total 1250 ml 100 ml # Voids 1 Labs Test 02/08/19 21:35 02/08/19 22:01 02/09/19 03:55 02/09/19 12:45 White Blood Count 11.7 K/UL (4.8-10.8) 11.6 K/UL (4.8-10.8) Red Blood Count 4.16 M/UL (4.20-5.40) 4.02 M/UL (4.20-5.40) Hemoglobin 10.7 G/DL (12.0-16.0) 10.6 G/DL (12.0-16.0) Hematocrit 35.2 % (37.0-47.0) 34.4 % (37.0-47.0) Mean Corpuscular Volume 85 FL (80-99) 86 FL (80-99) Mean Corpuscular Hemoglobin 25.7 PG (27.0-31.0) 26.4 PG (27.0-31.0) Mean Corpuscular Hemoglobin Concent 30.3 G/DL (32.0-36.0) 30.8 G/DL (32.0-36.0) Red Cell Distribution Width 16.9 % (11.6-14.8) 17.2 % (11.6-14.8) Platelet Count 188 K/UL (150-450) 183 K/UL (150-450) Mean Platelet Volume 8.6 FL (6.5-10.1) 9.1 FL (6.5-10.1) Neutrophils (%) (Auto) 58.1 % (45.0-75.0) 60.6 % (45.0-75.0) Lymphocytes (%) (Auto) 26.4 % (20.0-45.0) 26.1 % (20.0-45.0) Monocytes (%) (Auto) 9.5 % (1.0-10.0) 8.2 % (1.0-10.0) Eosinophils (%) (Auto) 4.2 % (0.0-3.0) 4.5 % (0.0-3.0) Basophils (%) (Auto) 1.9 % (0.0-2.0) 0.6 % (0.0-2.0) Sodium Level 142 MMOL/L (136-145) 139 MMOL/L (136-145) Potassium Level 3.6 MMOL/L (3.5-5.1) 3.6 MMOL/L (3.5-5.1) Chloride Level 105 MMOL/L (98-107) 105 MMOL/L (98-107) Carbon Dioxide Level 33 MMOL/L (21-32) 28 MMOL/L (21-32) Anion Gap 4 mmol/L (5-15) 6 mmol/L (5-15) Blood Urea Nitrogen 21 mg/dL (7-18) 18 mg/dL (7-18) Creatinine 1.3 MG/DL (0.55-1.30) 1.0 MG/DL (0.55-1.30) Estimat Glomerular Filtration Rate 50.1 mL/min (>60) > 60 mL/min (>60) Glucose Level 107 MG/DL (74-106) 92 MG/DL (74-106) Lactic Acid Level 1.30 mmol/L (0.4-2.0) Calcium Level 8.3 MG/DL (8.5-10.1) 8.2 MG/DL (8.5-10.1) Total Bilirubin 0.4 MG/DL (0.2-1.0) 0.3 MG/DL (0.2-1.0) Aspartate Amino Transf (AST/SGOT) 13 U/L (15-37) 13 U/L (15-37) Alanine Aminotransferase (ALT/SGPT) 26 U/L (12-78) 20 U/L (12-78) Alkaline Phosphatase 66 U/L (46-116) 67 U/L (46-116) Total Creatine Kinase 18 U/L (26-308) Creatine Kinase MB 0.5 NG/ML (0.0-3.6) Creatine Kinase MB Relative Index 2.7 Troponin I 0.001 ng/mL (0.000-0.056) 0.001 ng/mL (0.000-0.056) Total Protein 6.9 G/DL (6.4-8.2) 6.6 G/DL (6.4-8.2) Albumin 2.4 G/DL (3.4-5.0) 2.4 G/DL (3.4-5.0) Globulin 4.5 g/dL 4.2 g/dL Albumin/Globulin Ratio 0.5 (1.0-2.7) 0.6 (1.0-2.7) Urine Color Yellow Urine Appearance Slightly cloudy Urine pH 5 (4.5-8.0) Urine Specific [place] 1.020 (1.005-1.035) Urine Protein 2+ (NEGATIVE) Urine Glucose (UA) Negative (NEGATIVE) Urine Ketones Negative (NEGATIVE) Urine Blood 1+ (NEGATIVE) Urine Nitrite Negative (NEGATIVE) Urine Bilirubin Negative (NEGATIVE) Urine Urobilinogen Normal MG/DL (0.0-1.0) Urine Leukocyte Esterase 1+ (NEGATIVE) Urine RBC 0-2 /HPF (0 - 2) Urine WBC 5-10 /HPF (0 - 2) Urine Squamous Epithelial Cells Moderate /LPF (NONE/OCC) Urine Bacteria Moderate /HPF (NONE) Thyroid Stimulating Hormone (TSH) 1.383 uiU/mL (0.358-3.740) Test 02/09/19 18:54 02/10/19 03:22 02/11/19 05:05 Troponin I 0.000 ng/mL (0.000-0.056) 0.000 ng/mL (0.000-0.056) White Blood Count 11.2 K/UL (4.8-10.8) 10.8 K/UL (4.8-10.8) Red Blood Count 4.78 M/UL (4.20-5.40) 4.16 M/UL (4.20-5.40) Hemoglobin 12.5 G/DL (12.0-16.0) 11.1 G/DL (12.0-16.0) Hematocrit 41.0 % (37.0-47.0) 35.6 % (37.0-47.0) Mean Corpuscular Volume 86 FL (80-99) 86 FL (80-99) Mean Corpuscular Hemoglobin 26.1 PG (27.0-31.0) 26.6 PG (27.0-31.0) Mean Corpuscular Hemoglobin Concent 30.4 G/DL (32.0-36.0) 31.1 G/DL (32.0-36.0) Red Cell Distribution Width 17.3 % (11.6-14.8) 17.4 % (11.6-14.8) Platelet Count 188 K/UL (150-450) 205 K/UL (150-450) Mean Platelet Volume 8.6 FL (6.5-10.1) 9.0 FL (6.5-10.1) Neutrophils (%) (Auto) 71.3 % (45.0-75.0) 64.9 % (45.0-75.0) Lymphocytes (%) (Auto) 14.7 % (20.0-45.0) 14.8 % (20.0-45.0) Monocytes (%) (Auto) 7.4 % (1.0-10.0) 9.8 % (1.0-10.0) Eosinophils (%) (Auto) 5.5 % (0.0-3.0) 9.2 % (0.0-3.0) Basophils (%) (Auto) 1.1 % (0.0-2.0) 1.2 % (0.0-2.0) Sodium Level 142 MMOL/L (136-145) 140 MMOL/L (136-145) Potassium Level 3.9 MMOL/L (3.5-5.1) 3.9 MMOL/L (3.5-5.1) Chloride Level 105 MMOL/L (98-107) 104 MMOL/L (98-107) Carbon Dioxide Level 25 MMOL/L (21-32) 27 MMOL/L (21-32) Anion Gap 12 mmol/L (5-15) 9 mmol/L (5-15) Blood Urea Nitrogen 11 mg/dL (7-18) 7 mg/dL (7-18) Creatinine 0.9 MG/DL (0.55-1.30) 0.9 MG/DL (0.55-1.30) Estimat Glomerular Filtration Rate > 60 mL/min (>60) > 60 mL/min (>60) Glucose Level 101 MG/DL (74-106) 98 MG/DL (74-106) Hemoglobin A1c 5.6 % (4.3-6.0) Uric Acid 5.6 MG/DL (2.6-7.2) Calcium Level 8.6 MG/DL (8.5-10.1) 8.5 MG/DL (8.5-10.1) Phosphorus Level 2.1 MG/DL (2.5-4.9) Magnesium Level 1.7 MG/DL (1.8-2.4) Iron Level 31 ug/dL (50-175) Total Iron Binding Capacity 254 ug/dL (250-450) Percent Iron Saturation 12 % (15-50) Unsaturated Iron Binding 223 ug/dL (112-346) Ferritin 67 NG/ML (8-388) Total Bilirubin 0.3 MG/DL (0.2-1.0) 0.3 MG/DL (0.2-1.0) Gamma Glutamyl Transpeptidase 46 U/L (5-85) Aspartate Amino Transf (AST/SGOT) 12 U/L (15-37) 13 U/L (15-37) Alanine Aminotransferase (ALT/SGPT) 16 U/L (12-78) 14 U/L (12-78) Alkaline Phosphatase 77 U/L (46-116) 67 U/L (46-116) Total Creatine Kinase 41 U/L (26-308) C-Reactive Protein, Quantitative 10.6 mg/dL (0.00-0.90) Pro-B-Type Natriuretic Peptide 282 pg/mL (0-125) Total Protein 7.4 G/DL (6.4-8.2) 6.7 G/DL (6.4-8.2) Albumin 2.7 G/DL (3.4-5.0) 2.3 G/DL (3.4-5.0) Globulin 4.7 g/dL 4.4 g/dL Albumin/Globulin Ratio 0.6 (1.0-2.7) 0.5 (1.0-2.7) Triglycerides Level 66 MG/DL (30-150) Cholesterol Level 108 MG/DL (< 200) LDL Cholesterol 38 mg/dL (<100) HDL Cholesterol 62 MG/DL (40-60) Cholesterol/HDL Ratio 1.7 (3.3-4.4) Vitamin B12 Level 649 PG/ML (193-986) Folate 4.7 NG/ML (8.6-58.9) Free Thyroxine 1.42 NG/DL (0.76-1.46) Height (Feet): 5 Height (Inches): 9.00 Weight (Pounds): 400 Ru Carcamo MD Feb 11, 2019 11:47
--- NOTE | 2019-02-11 11:50 | Cardiac Electrophysiology PN ---
Assessment/Plan Assessment/Plan 1. Bradycardia. Better on metoprolol 50 mg b.i.d. 2. Hypertension. On Norvasc 10 mg daily and metoprolol 50 b.i.d. and losartan 50 mg b.i.d. 3. Hyperlipidemia. On Lipitor. 4. Right common femoral vein DVT. On Eliquis 10 mg b.i.d. 5. Diarrhea and anemia. Further evaluation by Dr. Durant. 6. Morbid obesity. 7. History of diabetes. 8. History of tobacco use. 9. Constipation. FU Dr Bhargav W[place] RN Subjective Subjective Alert in NAD. No CP or SOB.In SR. No events. Constipated.Getting 24 hour urine collection Objective Last 24 Hour Vital Signs Date Time Temp Pulse Resp B/P (MAP) Pulse Ox O2 Delivery O2 Flow Rate FiO2 02/11/19 08:15 61 101/69 02/11/19 08:15 61 101/69 02/11/19 08:14 101/69 02/11/19 08:02 Room Air 02/11/19 08:01 97.6 61 20 101/69 (80) 97 02/11/19 08:00 70 02/11/19 04:00 98.0 72 20 128/61 (83) 96 02/11/19 04:00 66 02/11/19 04:00 Room Air 02/11/19 00:00 Room Air 02/11/19 00:00 68 02/11/19 00:00 98.5 70 20 130/72 (91) 100 02/10/19 21:19 70 142/71 02/10/19 21:17 142/71 02/10/19 20:00 97.6 70 20 142/71 (94) 95 02/10/19 20:00 68 02/10/19 20:00 Room Air 02/10/19 16:00 Room Air 02/10/19 16:00 98.0 63 23 128/74 (92) 96 02/10/19 15:39 68 02/10/19 12:00 Room Air 02/10/19 12:00 97.6 67 22 134/69 (90) 94 Intake and Output 02/10/19 02/11/19 19:00 07:00 Intake Total 1319.066 ml 240 ml Output Total 1250 ml 100 ml Balance 69.066 ml 140 ml Intake Oral 240 ml IV Total 1319.066 ml Output Urine Total 1250 ml 100 ml # Voids 1 Laboratory Tests Test 02/11/19 05:05 White Blood Count 10.8 K/UL (4.8-10.8) Red Blood Count 4.16 M/UL (4.20-5.40) L Hemoglobin 11.1 G/DL (12.0-16.0) L Hematocrit 35.6 % (37.0-47.0) L Mean Corpuscular Volume 86 FL (80-99) Mean Corpuscular Hemoglobin 26.6 PG (27.0-31.0) L Mean Corpuscular Hemoglobin Concent 31.1 G/DL (32.0-36.0) L Red Cell Distribution Width 17.4 % (11.6-14.8) H Platelet Count 205 K/UL (150-450) Mean Platelet Volume 9.0 FL (6.5-10.1) Neutrophils (%) (Auto) 64.9 % (45.0-75.0) Lymphocytes (%) (Auto) 14.8 % (20.0-45.0) L Monocytes (%) (Auto) 9.8 % (1.0-10.0) Eosinophils (%) (Auto) 9.2 % (0.0-3.0) H Basophils (%) (Auto) 1.2 % (0.0-2.0) Sodium Level 140 MMOL/L (136-145) Potassium Level 3.9 MMOL/L (3.5-5.1) Chloride Level 104 MMOL/L (98-107) Carbon Dioxide Level 27 MMOL/L (21-32) Anion Gap 9 mmol/L (5-15) Blood Urea Nitrogen 7 mg/dL (7-18) Creatinine 0.9 MG/DL (0.55-1.30) Estimat Glomerular Filtration Rate > 60 mL/min (>60) Glucose Level 98 MG/DL (74-106) Calcium Level 8.5 MG/DL (8.5-10.1) Total Bilirubin 0.3 MG/DL (0.2-1.0) Aspartate Amino Transf (AST/SGOT) 13 U/L (15-37) L Alanine Aminotransferase (ALT/SGPT) 14 U/L (12-78) Alkaline Phosphatase 67 U/L (46-116) Total Protein 6.7 G/DL (6.4-8.2) Albumin 2.3 G/DL (3.4-5.0) L Globulin 4.4 g/dL Albumin/Globulin Ratio 0.5 (1.0-2.7) L Microbiology Date/Time Source Procedure Growth Status 02/08/19 21:40 Blood Blood Culture - Preliminary Gram Positive Cocci Resulted 02/08/19 21:30 Blood Blood Culture - Preliminary Gram Positive Cocci Resulted 02/08/19 22:01 Urine,Clean Catch Urine Culture - Final Klebsiella Pneumoniae Complete Objective HEAD AND NECK: No JVD or carotid bruit. LUNGS: Clear. CARDIOVASCULAR: Regular S1 and S2 with no gallop or murmur. ABDOMEN: Morbidly obese. EXTREMITIES: 1+ pitting edema. Ian Kaminski MD Feb 11, 2019 11:50
[2019-02-11 12:00] VITALS: BP 119/74
--- NOTE | 2019-02-11 15:35 | Nephrology Progress Note ---
Assessment/Plan Problem List: (1) Morbid obesity with BMI of 50.0-59.9, adult (2) Hypertension (3) Anemia (4) Proteinuria Assessment Proteinuria ? Hypoalbuminemia Morbid obesity - r/o Diabetic nephropathy CAD Anemia HTN Smoker Plan Phos , Mag supplement as needed 24 H urine protein keep BP and BS in check continue per consultants Anemia queen Subjective ROS Limited/Unobtainable: No Objective Objective Last 24 Hour Vital Signs Date Time Temp Pulse Resp B/P (MAP) Pulse Ox O2 Delivery O2 Flow Rate FiO2 02/11/19 12:12 Room Air 02/11/19 12:00 73 02/11/19 12:00 98.5 74 19 119/74 (89) 91 02/11/19 08:15 61 101/69 02/11/19 08:15 61 101/69 02/11/19 08:14 101/69 02/11/19 08:02 Room Air 02/11/19 08:01 97.6 61 20 101/69 (80) 97 02/11/19 08:00 70 02/11/19 04:00 98.0 72 20 128/61 (83) 96 02/11/19 04:00 66 02/11/19 04:00 Room Air 02/11/19 00:00 Room Air 02/11/19 00:00 68 02/11/19 00:00 98.5 70 20 130/72 (91) 100 02/10/19 21:19 70 142/71 02/10/19 21:17 142/71 02/10/19 20:00 97.6 70 20 142/71 (94) 95 02/10/19 20:00 68 02/10/19 20:00 Room Air 02/10/19 16:00 Room Air 02/10/19 16:00 98.0 63 23 128/74 (92) 96 02/10/19 15:39 68 Intake and Output 02/10/19 02/11/19 19:00 07:00 Intake Total 1319.066 ml 240 ml Output Total 1250 ml 100 ml Balance 69.066 ml 140 ml Intake Oral 240 ml IV Total 1319.066 ml Output Urine Total 1250 ml 100 ml # Voids 1 Laboratory Tests 02/11/19 05:05: White Blood Count 10.8, Red Blood Count 4.16L, Hemoglobin 11.1L, Hematocrit 35.6L, Mean Corpuscular Volume 86, Mean Corpuscular Hemoglobin 26.6L, Mean Corpuscular Hemoglobin Concent 31.1L, Red Cell Distribution Width 17.4H, Platelet Count 205, Mean Platelet Volume 9.0, Neutrophils (%) (Auto) 64.9, Lymphocytes (%) (Auto) 14.8L, Monocytes (%) (Auto) 9.8, Eosinophils (%) (Auto) 9.2H, Basophils (%) (Auto) 1.2, Sodium Level 140, Potassium Level 3.9, Chloride Level 104, Carbon Dioxide Level 27, Anion Gap 9, Blood Urea Nitrogen 7, Creatinine 0.9, Estimat Glomerular Filtration Rate > 60, Glucose Level 98, Calcium Level 8.5, Total Bilirubin 0.3, Aspartate Amino Transf (AST/SGOT) 13L, Alanine Aminotransferase (ALT/SGPT) 14, Alkaline Phosphatase 67, Total Protein 6.7, Albumin 2.3L, Globulin 4.4, Albumin/Globulin Ratio 0.5L Height (Feet): 5 Height (Inches): 9.00 Weight (Pounds): 400 General Appearance: no apparent distress Cardiovascular: normal rate Respiratory/Chest: decreased breath sounds Abdomen: distended Objective no change Richy Hernandez MD Feb 11, 2019 15:35
[2019-02-11 16:00] VITALS: BP 127/76
[2019-02-11] MEDS ORDERED: Tubing IV Secondary IV ONE (17:00)
[2019-02-11] MEDS ORDERED: NS 275ml ONE (17:00)
--- NOTE | 2019-02-11 17:46 | NUR ---
24 hrs urine collected and sent to lab at 1630 as ordered. Addendum: 02/11/19 at 1824 by MISSY STEVENS RN RN miles cath removed after 24 hours urine collection as ordered.
--- NOTE | 2019-02-11 19:31 | NUR ---
HAND-OFF: Report given to Danilo PABON.
[2019-02-11 20:00] VITALS: BP 145/69
[2019-02-11] MEDS: Miralax 17gm pkt ORAL SCH (21:20)
[2019-02-11] MEDS: Atorvastatin 20mg tab ORAL SCH (21:20)
[2019-02-11] MEDS: TraZODone 100mg tab ORAL SCH (21:20)
[2019-02-11] MEDS: Iron Sucrose 100 MG in NS 55 ML IV SCH (21:30)
--- NOTE | 2019-02-11 21:49 | General Progress Note ---
Assessment/Plan Problem List: (1) Chest pain ICD Codes: R07.9 - Chest pain SNOMED: 90917890 (2) Morbid obesity with BMI of 50.0-59.9, adult ICD Codes: E66.01 - Morbid (severe)obesity due to excess calories; Z68.43 - Body mass index (bmi) 50-59.9 , adult SNOMED: 947807594 (3) Hypertension ICD Codes: I10 - Essential (primary) hypertension SNOMED: 61278193 (4) Diarrhea ICD Codes: R19.7 - Diarrhea, unspecified SNOMED: 29764204 (5) Diabetes ICD Codes: E11.9 - Type 2 diabetes mellitus without complications SNOMED: 11878931 (6) ACS (acute coronary syndrome) ICD Codes: I24.9 - ACS (acute coronary syndrome) SNOMED: 489404341 (7) Anemia ICD Codes: D64.9 - Anemia, unspecified SNOMED: 069076730 Status: progressing Assessment/Plan: morbid obesity h/h is stable reviewed chart and labs and meds anemia luti htn cp copd Subjective ROS Limited/Unobtainable: Yes Allergies: Coded Allergies: No Known Allergies (Unverified , 02/01/15) Objective Last 24 Hour Vital Signs Date Time Temp Pulse Resp B/P (MAP) Pulse Ox O2 Delivery O2 Flow Rate FiO2 02/11/19 21:19 86 145/69 02/11/19 21:19 145/69 02/11/19 20:00 79 02/11/19 20:00 98.9 86 24 145/69 (94) 94 02/11/19 16:36 Room Air 02/11/19 16:00 96.0 80 19 127/76 (93) 96 02/11/19 16:00 75 02/11/19 12:12 Room Air 02/11/19 12:00 73 02/11/19 12:00 98.5 74 19 119/74 (89) 91 02/11/19 08:15 61 101/69 02/11/19 08:15 61 101/69 02/11/19 08:14 101/69 02/11/19 08:02 Room Air 02/11/19 08:01 97.6 61 20 101/69 (80) 97 02/11/19 08:00 70 02/11/19 04:00 98.0 72 20 128/61 (83) 96 02/11/19 04:00 66 02/11/19 04:00 Room Air 02/11/19 00:00 Room Air 02/11/19 00:00 68 02/11/19 00:00 98.5 70 20 130/72 (91) 100 Intake and Output 02/10/19 02/11/19 18:59 06:59 Intake Total 1394.066 ml Output Total 1250 ml 100 ml Balance 144.066 ml -100 ml IV Total 1394.066 ml Output Urine Total 1250 ml 100 ml # Voids 1 Laboratory Tests 02/11/19 05:05: White Blood Count 10.8, Red Blood Count 4.16L, Hemoglobin 11.1L, Hematocrit 35.6L, Mean Corpuscular Volume 86, Mean Corpuscular Hemoglobin 26.6L, Mean Corpuscular Hemoglobin Concent 31.1L, Red Cell Distribution Width 17.4H, Platelet Count 205, Mean Platelet Volume 9.0, Neutrophils (%) (Auto) 64.9, Lymphocytes (%) (Auto) 14.8L, Monocytes (%) (Auto) 9.8, Eosinophils (%) (Auto) 9.2H, Basophils (%) (Auto) 1.2, Sodium Level 140, Potassium Level 3.9, Chloride Level 104, Carbon Dioxide Level 27, Anion Gap 9, Blood Urea Nitrogen 7, Creatinine 0.9, Estimat Glomerular Filtration Rate > 60, Glucose Level 98, Calcium Level 8.5, Total Bilirubin 0.3, Aspartate Amino Transf (AST/SGOT) 13L, Alanine Aminotransferase (ALT/SGPT) 14, Alkaline Phosphatase 67, Total Protein 6.7, Albumin 2.3L, Globulin 4.4, Albumin/Globulin Ratio 0.5L Height (Feet): 5 Height (Inches): 9.00 Weight (Pounds): 400 Cardiovascular: normal rate Respiratory/Chest: lungs clear Abdomen: soft Kiki Valero MD Feb 11, 2019 21:49
[2019-02-11] MEDS: cefTRIAXone 1 GM in D5W 55 ML IVPB SCH (22:01)
[2019-02-12] VITALS: BP 116/71
--- NOTE | 2019-02-12 00:30 | Progress Note ---
DATE: 02/11/2019 SUBJECTIVE: The patient same. Doing well. No behavior issues. Calm. She has episodes of anxiety. MENTAL STATUS EXAMINATION: The patient is alert and oriented x3. Morbidly obese. Mood is depressed and anxious. Affect is flat. Thought process is linear. Thought content, no suicidal or homicidal ideation. ASSESSMENT: Depression. PLAN: We will continue current medication. Provide the patient with reality orientation. Angela Dubon M.D. DR: IWONA JOB#: [id number] CC: [email or web address]
[2019-02-12 04:00] VITALS: BP 132/65
--- NOTE | 2019-02-12 07:56 | Hematology/Onc Progress Note ---
Assessment/Plan Assessment/Plan Assessment and Recs: # Anemia of chronic disease (or of iron deficiency) due to underlying chronic medical issues, multifactorial --> Anemia workup has been ordered, rule out gi bleed --> No evidence of hemolysis is noted, peripheral smear has been reviewed. --> Hgb goal >7. Transfuse prn. --> HGB 11.1 --> Epogen or iron at this time is not particularly indicated --> Medications have been reviewed --> low threshold for gi evaluation in case has occult + --> bone marrow biopsy is not indicated given the other more likely causes # Eosinophilia -- elevated wbc noted and eosinophil % is elevated as well --> rule out underlying infection + UTI, as per ID recs, abx as required --> no evidence of allergic reaction, common cause --> medications have been reviewed --> does not have a history of malignancy, no evidence of lymphoma, common cause --> rule out adrenal insufficiency, no recent steriod use is noted --> obtain stool O&P rule out parasitic infections and/or cocci --> if persists consider CT scan, bone marrow biopsy or LP as required --> trend eosinophil % # Urinary tract infection --> on abx as per ID # Hypocalcemia -- Ca++ repleted # Hypotension on IVF, given bolus --> Improved. The timing of this note does not necessarily reflect the time of the patient was seen. GREATLY APPRECIATE CONSULTATION. Subjective Allergies: Coded Allergies: No Known Allergies (Unverified , 02/01/15) Subjective Subjective 02/10: Pt is awake and oriented x4. Pt tolerating well, no signs of respiratory distress. 02/11: 24 hour urine in progress, no acute distress. 02/12: pt is eating her breakfast complains of generalized body pains. Objective Objective Current Medications Medications (Trade) Dose Ordered Sig/Lora Route PRN Reason Start Time Stop Time Status Last Admin Dose Admin Acetaminophen (Tylenol) 500 mg Q4H PRN ORAL Mild Pain/Temp > 100.5 02/10/19 19:00 03/11/19 18:59 Amlodipine Besylate (Norvasc) 10 mg DAILY ORAL 02/11/19 09:00 03/12/19 08:59 02/11/19 08:15 Apixaban (Eliquis) 10 mg BID ORAL 02/11/19 09:00 03/11/19 17:59 02/11/19 17:09 Aspirin (Ecotrin) 81 mg DAILY ORAL 02/11/19 09:00 03/12/19 08:59 02/11/19 08:14 Atorvastatin Calcium (Lipitor) 20 mg BEDTIME ORAL 02/10/19 21:00 03/11/19 20:59 02/11/19 21:20 Ceftriaxone Sodium 1 gm/ Dextrose 55 ml @ 110 mls/hr Q24H IVPB 02/10/19 22:00 02/16/19 21:59 02/11/19 22:01 Docusate Sodium (Colace) 100 mg TWICE A DAY ORAL 02/11/19 09:00 03/13/19 08:59 02/11/19 17:09 Famotidine (Pepcid) 20 mg BID ORAL 02/11/19 09:00 03/11/19 17:59 02/11/19 17:09 Folic Acid (Folate) 2 mg DAILY ORAL 02/11/19 09:00 03/13/19 08:59 02/11/19 08:13 Gabapentin (Neurontin) 300 mg BEDTIME ORAL 02/10/19 21:00 03/11/19 20:59 02/11/19 21:19 Iron Sucrose 100 mg/Sodium Chloride 60 ml @ 240 mls/hr BEDTIME IV 02/10/19 21:00 02/14/19 21:14 02/11/19 21:30 Lactulose (Cephulac) 10 gm THREE TIMES A DAY ORAL 02/11/19 09:00 03/13/19 08:59 02/11/19 17:09 Losartan Potassium (Cozaar) 50 mg EVERY 12 HOURS ORAL 02/10/19 21:00 03/11/19 20:59 02/11/19 21:19 Metoprolol Tartrate (Lopressor) 50 mg Q12HR ORAL 02/10/19 21:00 03/11/19 20:59 02/11/19 21:19 Ondansetron HCl (Zofran) 4 mg Q6H PRN IVP Nausea & Vomiting 02/10/19 19:00 03/11/19 18:59 Polyethylene Glycol (Miralax) 17 gm BEDTIME ORAL 02/11/19 21:00 03/13/19 20:59 02/11/19 21:20 Sodium Chloride 1,000 ml @ 75 mls/hr [id number] IV 02/10/19 19:00 03/11/19 18:59 02/11/19 22:01 Trazodone HCl (Desyrel) 150 mg BEDTIME ORAL 02/11/19 21:00 03/11/19 20:59 02/11/19 21:20 Last 24 Hour Vital Signs Date Time Temp Pulse Resp B/P (MAP) Pulse Ox O2 Delivery O2 Flow Rate FiO2 02/12/19 04:00 67 02/12/19 04:00 98.1 70 20 132/65 (87) 91 02/12/19 00:00 98.2 78 20 116/71 (86) 92 02/12/19 00:00 69 02/11/19 21:19 86 145/69 02/11/19 21:19 145/69 02/11/19 20:00 79 02/11/19 20:00 98.9 86 24 145/69 (94) 94 02/11/19 20:00 Room Air 02/11/19 16:36 Room Air 02/11/19 16:00 96.0 80 19 127/76 (93) 96 02/11/19 16:00 75 02/11/19 12:12 Room Air 02/11/19 12:00 73 02/11/19 12:00 98.5 74 19 119/74 (89) 91 02/11/19 08:15 61 101/69 02/11/19 08:15 61 101/69 02/11/19 08:14 101/69 02/11/19 08:02 Room Air 02/11/19 08:01 97.6 61 20 101/69 (80) 97 02/11/19 08:00 70 02/11/19 04:00 98.0 72 20 128/61 (83) 96 02/11/19 04:00 66 02/11/19 04:00 Room Air 02/11/19 00:00 Room Air 02/11/19 00:00 68 02/11/19 00:00 98.5 70 20 130/72 (91) 100 02/10/19 21:19 70 142/71 02/10/19 21:17 142/71 02/10/19 20:00 97.6 70 20 142/71 (94) 95 02/10/19 20:00 68 02/10/19 20:00 Room Air 02/10/19 16:00 Room Air 02/10/19 16:00 98.0 63 23 128/74 (92) 96 02/10/19 15:39 68 02/10/19 12:00 Room Air 02/10/19 12:00 97.6 67 22 134/69 (90) 94 02/10/19 11:38 65 02/10/19 09:11 64 149/90 02/10/19 09:10 149/90 02/10/19 09:09 63 149/90 02/10/19 08:00 Room Air 02/10/19 08:00 97.9 68 22 129/69 (89) 96 Intake and Output 02/11/19 02/12/19 19:00 07:00 Intake Total 140 ml Output Total 300 ml Balance -160 ml Intake Oral 140 ml Output Urine Total 300 ml # Voids 3 Labs Test 02/09/19 12:45 02/09/19 18:54 02/10/19 03:22 02/10/19 16:00 Troponin I 0.001 ng/mL (0.000-0.056) 0.000 ng/mL (0.000-0.056) 0.000 ng/mL (0.000-0.056) Thyroid Stimulating Hormone (TSH) 1.383 uiU/mL (0.358-3.740) White Blood Count 11.2 K/UL (4.8-10.8) Red Blood Count 4.78 M/UL (4.20-5.40) Hemoglobin 12.5 G/DL (12.0-16.0) Hematocrit 41.0 % (37.0-47.0) Mean Corpuscular Volume 86 FL (80-99) Mean Corpuscular Hemoglobin 26.1 PG (27.0-31.0) Mean Corpuscular Hemoglobin Concent 30.4 G/DL (32.0-36.0) Red Cell Distribution Width 17.3 % (11.6-14.8) Platelet Count 188 K/UL (150-450) Mean Platelet Volume 8.6 FL (6.5-10.1) Neutrophils (%) (Auto) 71.3 % (45.0-75.0) Lymphocytes (%) (Auto) 14.7 % (20.0-45.0) Monocytes (%) (Auto) 7.4 % (1.0-10.0) Eosinophils (%) (Auto) 5.5 % (0.0-3.0) Basophils (%) (Auto) 1.1 % (0.0-2.0) Sodium Level 142 MMOL/L (136-145) Potassium Level 3.9 MMOL/L (3.5-5.1) Chloride Level 105 MMOL/L (98-107) Carbon Dioxide Level 25 MMOL/L (21-32) Anion Gap 12 mmol/L (5-15) Blood Urea Nitrogen 11 mg/dL (7-18) Creatinine 0.9 MG/DL (0.55-1.30) Estimat Glomerular Filtration Rate > 60 mL/min (>60) Glucose Level 101 MG/DL (74-106) Hemoglobin A1c 5.6 % (4.3-6.0) Uric Acid 5.6 MG/DL (2.6-7.2) Calcium Level 8.6 MG/DL (8.5-10.1) Phosphorus Level 2.1 MG/DL (2.5-4.9) Magnesium Level 1.7 MG/DL (1.8-2.4) Iron Level 31 ug/dL (50-175) Total Iron Binding Capacity 254 ug/dL (250-450) Percent Iron Saturation 12 % (15-50) Unsaturated Iron Binding 223 ug/dL (112-346) Ferritin 67 NG/ML (8-388) Total Bilirubin 0.3 MG/DL (0.2-1.0) Gamma Glutamyl Transpeptidase 46 U/L (5-85) Aspartate Amino Transf (AST/SGOT) 12 U/L (15-37) Alanine Aminotransferase (ALT/SGPT) 16 U/L (12-78) Alkaline Phosphatase 77 U/L (46-116) Total Creatine Kinase 41 U/L (26-308) C-Reactive Protein, Quantitative 10.6 mg/dL (0.00-0.90) Pro-B-Type Natriuretic Peptide 282 pg/mL (0-125) Total Protein 7.4 G/DL (6.4-8.2) Albumin 2.7 G/DL (3.4-5.0) Globulin 4.7 g/dL Albumin/Globulin Ratio 0.6 (1.0-2.7) Triglycerides Level 66 MG/DL (30-150) Cholesterol Level 108 MG/DL (< 200) LDL Cholesterol 38 mg/dL (<100) HDL Cholesterol 62 MG/DL (40-60) Cholesterol/HDL Ratio 1.7 (3.3-4.4) Vitamin B12 Level 649 PG/ML (193-986) Folate 4.7 NG/ML (8.6-58.9) Free Thyroxine 1.42 NG/DL (0.76-1.46) Urine Collection Time 24 HRS Urine Total Volume 1750 ML Urine Total Protein mg/dL 19 mg/dL Urine Total Protein 24 Hour 18.7 mg/24hr (< 150) Test 02/11/19 05:05 White Blood Count 10.8 K/UL (4.8-10.8) Red Blood Count 4.16 M/UL (4.20-5.40) Hemoglobin 11.1 G/DL (12.0-16.0) Hematocrit 35.6 % (37.0-47.0) Mean Corpuscular Volume 86 FL (80-99) Mean Corpuscular Hemoglobin 26.6 PG (27.0-31.0) Mean Corpuscular Hemoglobin Concent 31.1 G/DL (32.0-36.0) Red Cell Distribution Width 17.4 % (11.6-14.8) Platelet Count 205 K/UL (150-450) Mean Platelet Volume 9.0 FL (6.5-10.1) Neutrophils (%) (Auto) 64.9 % (45.0-75.0) Lymphocytes (%) (Auto) 14.8 % (20.0-45.0) Monocytes (%) (Auto) 9.8 % (1.0-10.0) Eosinophils (%) (Auto) 9.2 % (0.0-3.0) Basophils (%) (Auto) 1.2 % (0.0-2.0) Sodium Level 140 MMOL/L (136-145) Potassium Level 3.9 MMOL/L (3.5-5.1) Chloride Level 104 MMOL/L (98-107) Carbon Dioxide Level 27 MMOL/L (21-32) Anion Gap 9 mmol/L (5-15) Blood Urea Nitrogen 7 mg/dL (7-18) Creatinine 0.9 MG/DL (0.55-1.30) Estimat Glomerular Filtration Rate > 60 mL/min (>60) Glucose Level 98 MG/DL (74-106) Calcium Level 8.5 MG/DL (8.5-10.1) Total Bilirubin 0.3 MG/DL (0.2-1.0) Aspartate Amino Transf (AST/SGOT) 13 U/L (15-37) Alanine Aminotransferase (ALT/SGPT) 14 U/L (12-78) Alkaline Phosphatase 67 U/L (46-116) Total Protein 6.7 G/DL (6.4-8.2) Albumin 2.3 G/DL (3.4-5.0) Globulin 4.4 g/dL Albumin/Globulin Ratio 0.5 (1.0-2.7) Height (Feet): 5 Height (Inches): 9.00 Weight (Pounds): 400 Objective PE General Appearance: no apparent distress, alert Morbidly Obese HEENT: atraumatic, anicteric, mucous membranes moist Neck: normal alignment, supple, normal inspection Respiratory/Chest: lungs clear, no respiratory distress, no accessory muscle use, decreased breath sounds Cardiovascular/Chest: normal peripheral pulses, normal rate, regular rhythm Abdomen: non tender, soft, no organomegaly Extremities: non-tender, normal inspection, no edema Neurologic:, alert, oriented x 3 BLE weakness Lisa Crocker NP Feb 12, 2019 07:56
[2019-02-12 08:00] VITALS: BP_SYST 124; BP_SYST 140; BP_DIAS 60; BP_DIAS 71
--- NOTE | 2019-02-12 08:16 | NUR ---
NURSE NOTES: Received report from PEPPER Loera. Pt shows no signs of distress; A+Ox2, denies pain/SOB. IV site is intact and saline locked. Respirations are even and unlabored on room air. Bed is at lowest position, brakes engaged, siderails x2, bed alarm on, and call light within reach. Pt is in stable condition; will continue to monitor.
--- NOTE | 2019-02-12 08:27 | NUR ---
HAND-OFF: Report given to Sharon PABON.
--- NOTE | 2019-02-12 08:54 | NUR ---
NURSE NOTES: Pt O2 saturation of 89% on room air. Placed patient on 2 L NC. Pt is now satting 92-93%.
[2019-02-12] MEDS: Losartan 50mg tab ORAL SCH ×2 (09:35→21:42)
[2019-02-12] MEDS: Lactulose 10gm/15ml UDC ORAL SCH ×3 (09:35→16:13)
[2019-02-12] MEDS: Docusate 100mg cap ORAL SCH ×2 (09:35→16:13)
[2019-02-12] MEDS: Aspirin EC 81mg tab ORAL SCH (09:36)
[2019-02-12] MEDS: Metoprolol Tartrate 50mg tab ORAL SCH ×2 (09:36→21:42)
--- NOTE | 2019-02-12 09:36 | Diagnostic Imaging Report ---
APPROVED REPORT CPT Code: 08099 Present Symptoms Comments: Screening Risk Factors Obesity Bed Rest Technically Limited/difficult study due to vessel depth and obesity. RIGHT LEG: Venous imaging reveals acute thrombus in the common femoral to the proximal superficial femoral veins. The superficial femoral mid-distal and calf veins were not well visualized. The popliteal vein was patent. LEFT LEG: Venous imaging reveals a patent deep venous system. There is no evidence of thrombus within the popliteal vein. The common femoral, superficial femoral and tibial segments, not well imaged. PEPPER Lopez was notified of abnormal results at 0930 hours.
[2019-02-12] MEDS: Eliquis 5mg tablet ORAL SCH ×2 (09:42→17:29)
--- NOTE | 2019-02-12 10:22 | NUR ---
NURSE NOTES: Pt is complaining of 8/10 generalized pain. Pt grimaces often. Administered tylenol as ordered and pt still complaining of pain. Left message with Dr. Valero regarding patient's pain; awaiting response.
--- NOTE | 2019-02-12 10:42 | NUR ---
NURSE NOTES: Per Dr. Valero, contact Dr. Hooks and TERESA Lang for pain medication. Left message with Abel Hooks; awaiting response.
--- NOTE | 2019-02-12 10:50 | Nephrology Progress Note ---
Assessment/Plan Problem List: (1) Morbid obesity with BMI of 50.0-59.9, adult (2) Hypertension (3) Anemia (4) Proteinuria Assessment Proteinuria ? Hypoalbuminemia Morbid obesity - r/o Diabetic nephropathy CAD Anemia HTN Smoker Plan Phos , Mag supplement as needed 24 H urine protein keep BP and BS in check continue per consultants Anemia queen ? Med-Surg Subjective ROS Limited/Unobtainable: No Constitutional: Reports: malaise Objective Objective Last 24 Hour Vital Signs Date Time Temp Pulse Resp B/P (MAP) Pulse Ox O2 Delivery O2 Flow Rate FiO2 02/12/19 09:36 73 124/71 02/12/19 09:36 73 124/71 02/12/19 09:35 124/71 02/12/19 08:00 98.1 73 16 124/71 (88) 92 02/12/19 04:00 67 02/12/19 04:00 98.1 70 20 132/65 (87) 91 02/12/19 00:00 98.2 78 20 116/71 (86) 92 02/12/19 00:00 69 02/11/19 21:19 86 145/69 02/11/19 21:19 145/69 02/11/19 20:00 79 02/11/19 20:00 98.9 86 24 145/69 (94) 94 02/11/19 20:00 Room Air 02/11/19 16:36 Room Air 02/11/19 16:00 96.0 80 19 127/76 (93) 96 02/11/19 16:00 75 02/11/19 12:12 Room Air 02/11/19 12:00 73 02/11/19 12:00 98.5 74 19 119/74 (89) 91 Intake and Output 02/11/19 02/12/19 19:00 07:00 Intake Total 140 ml Output Total 300 ml Balance -160 ml Intake Oral 140 ml Output Urine Total 300 ml # Voids 3 Height (Feet): 5 Height (Inches): 9.00 Weight (Pounds): 400 General Appearance: no apparent distress Cardiovascular: normal rate Abdomen: soft Objective no change Richy Hernandez MD Feb 12, 2019 10:50
[2019-02-12 12:00] VITALS: BP 127/72
--- NOTE | 2019-02-12 13:56 | NUR ---
NURSE NOTES: Left second message with Dr. Lang and TERESA Hooks about patient's pain; awaiting response.
[2019-02-12 16:00] VITALS: BP 111/65
--- NOTE | 2019-02-12 19:18 | NUR ---
HAND-OFF: Report given to PEPPER Jasmine. Pt is in stable condition; plan of care endorsed.
--- NOTE | 2019-02-12 19:19 | NUR ---
NURSE NOTES: Received pt from PEPPER Herrera. Pt is awake and resting in bed. IV site intact. Will continue with plan of care.
--- NOTE | 2019-02-12 19:32 | Cardiac Electrophysiology PN ---
Assessment/Plan Assessment/Plan 1. Bradycardia. Decreased metoprolol to 50 mg b.i.d. 2. Hypertension. On Norvasc 10 mg daily, metoprolol 50 b.i.d. and losartan 50 mg b.i.d. 3. Hyperlipidemia. On Lipitor. 4. Right common femoral vein DVT. On Eliquis 10 mg b.i.d. 5. Diarrhea and anemia. Further evaluation by Dr. Durant. 6. Morbid obesity. 7. History of diabetes. 8. History of tobacco use. 9. Constipation. FU Dr Bhargav WASHINGTON RN Subjective Subjective Alert in NAD. No CP or SOB.In SR. Objective Last 24 Hour Vital Signs Date Time Temp Pulse Resp B/P (MAP) Pulse Ox O2 Delivery O2 Flow Rate FiO2 02/12/19 16:00 61 02/12/19 16:00 98.2 64 18 111/65 (80) 98 02/12/19 12:00 66 02/12/19 12:00 97.2 69 18 127/72 (90) 98 02/12/19 09:36 73 124/71 02/12/19 09:36 73 124/71 02/12/19 09:35 124/71 02/12/19 09:00 Room Air 02/12/19 08:00 79 02/12/19 08:00 98.1 73 16 124/71 (88) 92 02/12/19 04:00 67 02/12/19 04:00 98.1 70 20 132/65 (87) 91 02/12/19 00:00 98.2 78 20 116/71 (86) 92 02/12/19 00:00 69 02/11/19 21:19 86 145/69 02/11/19 21:19 145/69 02/11/19 20:00 79 02/11/19 20:00 98.9 86 24 145/69 (94) 94 02/11/19 20:00 Room Air Intake and Output 02/11/19 02/12/19 19:00 07:00 Intake Total 140 ml Output Total 300 ml Balance -160 ml Intake Oral 140 ml Output Urine Total 300 ml # Voids 3 Laboratory Tests Test 02/12/19 16:11 Stool Occult Blood Pending Objective HEAD AND NECK: No JVD or carotid bruit. LUNGS: Clear. CARDIOVASCULAR: Regular S1 and S2 with no gallop or murmur. ABDOMEN: Morbidly obese. EXTREMITIES: 1+ pitting edema. Ian Kaminski MD Feb 12, 2019 19:32
[2019-02-12 20:00] VITALS: BP 132/72
[2019-02-12] MEDS: Miralax 17gm pkt ORAL SCH (21:00)
--- NOTE | 2019-02-12 21:29 | General Progress Note ---
Assessment/Plan Problem List: (1) Chest pain ICD Codes: R07.9 - Chest pain SNOMED: 22634865 (2) Morbid obesity with BMI of 50.0-59.9, adult ICD Codes: E66.01 - Morbid (severe)obesity due to excess calories; Z68.43 - Body mass index (bmi) 50-59.9 , adult SNOMED: 250236927 (3) Hypertension ICD Codes: I10 - Essential (primary) hypertension SNOMED: 78431151 (4) Diarrhea ICD Codes: R19.7 - Diarrhea, unspecified SNOMED: 00761314 (5) Diabetes ICD Codes: E11.9 - Type 2 diabetes mellitus without complications SNOMED: 66078233 (6) ACS (acute coronary syndrome) ICD Codes: I24.9 - ACS (acute coronary syndrome) SNOMED: 338730066 (7) Anemia ICD Codes: D64.9 - Anemia, unspecified SNOMED: 056809942 Status: progressing Assessment/Plan: uti htn cp copd no chest pain obese reviewed chart and labs no wheezing Subjective Constitutional: Reports: no symptoms Allergies: Coded Allergies: No Known Allergies (Unverified , 02/01/15) Objective Last 24 Hour Vital Signs Date Time Temp Pulse Resp B/P (MAP) Pulse Ox O2 Delivery O2 Flow Rate FiO2 02/12/19 16:00 61 02/12/19 16:00 98.2 64 18 111/65 (80) 98 02/12/19 12:00 66 02/12/19 12:00 97.2 69 18 127/72 (90) 98 02/12/19 09:36 73 124/71 02/12/19 09:36 73 124/71 02/12/19 09:35 124/71 02/12/19 09:00 Room Air 02/12/19 08:00 79 02/12/19 08:00 98.1 73 16 124/71 (88) 92 02/12/19 04:00 67 02/12/19 04:00 98.1 70 20 132/65 (87) 91 02/12/19 00:00 98.2 78 20 116/71 (86) 92 02/12/19 00:00 69 Intake and Output 02/11/19 02/12/19 19:00 07:00 Intake Total 140 ml Output Total 300 ml Balance -160 ml Intake Oral 140 ml Output Urine Total 300 ml # Voids 3 Laboratory Tests 02/12/19 16:11: Stool Occult Blood [Pending] Height (Feet): 5 Height (Inches): 9.00 Weight (Pounds): 400 Cardiovascular: regular rhythm Respiratory/Chest: lungs clear Abdomen: soft Kiki Valero MD Feb 12, 2019 21:29
[2019-02-12] MEDS: Atorvastatin 20mg tab ORAL SCH (21:41)
[2019-02-12] MEDS: TraZODone 100mg tab ORAL SCH (21:41)
[2019-02-12] MEDS: Iron Sucrose 100 MG in NS 55 ML IV SCH (22:47)
[2019-02-13] VITALS: BP 105/67
[2019-02-13] MEDS: cefTRIAXone 1 GM in D5W 55 ML IVPB SCH (00:03)
[2019-02-13 04:00] VITALS: BP 110/66
--- NOTE | 2019-02-13 07:27 | NUR ---
HAND-OFF: Report given to PEPPER Hayes. Endorsed plan of care.
--- NOTE | 2019-02-13 07:35 | NUR ---
NURSE NOTES: Pt received from PEPPER Jasmine alert and oriented x4 with no acute s/s of distress noted. IV site asymptomatic and patent, R ac 20g connected to NS at 75. Bed in lowest position, call light and belongings within reach.
[2019-02-13 08:00] VITALS: BP 107/63
[2019-02-13] MEDS: Losartan 50mg tab ORAL SCH ×2 (09:00→21:27)
[2019-02-13] MEDS: Metoprolol Tartrate 50mg tab ORAL SCH ×2 (09:00→21:26)
[2019-02-13] MEDS: Tylenol #3 tab (300mg/30mg) ORAL PRN (09:34)
[2019-02-13] MEDS: Eliquis 5mg tablet ORAL SCH ×2 (09:34→17:25)
[2019-02-13] MEDS: Aspirin EC 81mg tab ORAL SCH (09:35)
[2019-02-13] MEDS: Docusate 100mg cap ORAL SCH ×2 (09:35→17:25)
[2019-02-13] MEDS: Lactulose 10gm/15ml UDC ORAL SCH ×3 (09:35→17:24)
[2019-02-13] MEDS ORDERED: Tubing IV Secondary IV ONE ×2 (10:11→16:01)
--- NOTE | 2019-02-13 10:55 | Infectious Diseases Prog Note ---
Assessment/Plan Assessment/Plan Impression: Klebsiella UTI.treated Positive blood culture with Coagulase neg staph, contamination DVT of R leg gastroenteritis with dehydration. diabetes mellitus, Morbid obesity COPD, anemia, hypertension, history of coronary artery disease, history of CVA. RECOMMENDATION: discontinue ceftriaxone. Observe off antibiotic Subjective ROS Limited/Unobtainable: No Constitutional: Reports: no symptoms Respiratory: Reports: no symptoms Cardiovascular: Reports: chest pain Gastrointestinal/Abdominal: Reports: constipation Genitourinary: Reports: no symptoms Allergies: Coded Allergies: No Known Allergies (Unverified , 02/01/15) Objective Vital Signs Last 24 Hour Vital Signs Date Time Temp Pulse Resp B/P (MAP) Pulse Ox O2 Delivery O2 Flow Rate FiO2 02/13/19 09:00 65 106/63 02/13/19 09:00 107/63 02/13/19 09:00 65 106/63 02/13/19 08:00 97.3 68 21 107/63 (78) 94 02/13/19 04:00 66 02/13/19 04:00 98.1 66 18 110/66 (81) 96 02/13/19 00:00 72 02/13/19 00:00 97.6 72 18 105/67 (80) 98 02/12/19 21:42 69 138/74 02/12/19 21:42 138/74 02/12/19 21:00 Room Air 02/12/19 20:00 97.5 64 20 132/72 (92) 95 02/12/19 20:00 64 02/12/19 16:00 61 02/12/19 16:00 98.2 64 18 111/65 (80) 98 02/12/19 12:00 66 02/12/19 12:00 97.2 69 18 127/72 (90) 98 Height (Feet): 5 Height (Inches): 9.00 Weight (Pounds): 400 General Appearance: other - obese HEENT: mucous membranes moist Respiratory/Chest: lungs clear Cardiovascular: normal rate Abdomen: soft, non tender Extremities: no edema Neurologic/Psychiatric: alert, oriented x 3, responsive Laboratory Tests Test 02/12/19 16:11 Stool Occult Blood Pending Current Medications Medications (Trade) Dose Ordered Sig/Lora Route PRN Reason Start Time Stop Time Status Last Admin Dose Admin Acetaminophen (Tylenol) 500 mg Q4H PRN ORAL Mild Pain/Temp > 100.5 02/10/19 19:00 03/11/19 18:59 02/12/19 09:38 Acetaminophen/ Codeine Phosphate (Tylenol #3) 1 tab Q4H PRN ORAL For Pain 02/12/19 22:30 02/19/19 22:29 02/13/19 09:34 Amlodipine Besylate (Norvasc) 10 mg DAILY ORAL 02/11/19 09:00 03/12/19 08:59 02/12/19 09:36 Apixaban (Eliquis) 10 mg BID ORAL 02/11/19 09:00 03/11/19 17:59 02/13/19 09:34 Aspirin (Ecotrin) 81 mg DAILY ORAL 02/11/19 09:00 03/12/19 08:59 02/13/19 09:35 Atorvastatin Calcium (Lipitor) 20 mg BEDTIME ORAL 02/10/19 21:00 03/11/19 20:59 02/12/19 21:41 Ceftriaxone Sodium 1 gm/ Dextrose 55 ml @ 110 mls/hr Q24H IVPB 02/10/19 22:00 02/16/19 21:59 02/13/19 00:03 Docusate Sodium (Colace) 100 mg TWICE A DAY ORAL 02/11/19 09:00 03/13/19 08:59 02/13/19 09:35 Famotidine (Pepcid) 20 mg BID ORAL 02/11/19 09:00 03/11/19 17:59 02/13/19 09:34 Folic Acid (Folate) 2 mg DAILY ORAL 02/11/19 09:00 03/13/19 08:59 02/13/19 09:35 Gabapentin (Neurontin) 300 mg BEDTIME ORAL 02/10/19 21:00 03/11/19 20:59 02/12/19 21:41 Iron Sucrose 100 mg/Sodium Chloride 60 ml @ 240 mls/hr BEDTIME IV 02/10/19 21:00 02/14/19 21:14 02/12/19 22:47 Lactulose (Cephulac) 10 gm THREE TIMES A DAY ORAL 02/11/19 09:00 03/13/19 08:59 02/13/19 09:35 Losartan Potassium (Cozaar) 50 mg EVERY 12 HOURS ORAL 02/10/19 21:00 03/11/19 20:59 02/12/19 21:42 Metoprolol Tartrate (Lopressor) 50 mg Q12HR ORAL 02/10/19 21:00 03/11/19 20:59 02/12/19 21:42 Ondansetron HCl (Zofran) 4 mg Q6H PRN IVP Nausea & Vomiting 02/10/19 19:00 03/11/19 18:59 Polyethylene Glycol (Miralax) 17 gm BEDTIME ORAL 02/11/19 21:00 03/13/19 20:59 02/11/19 21:20 Sodium Chloride 1,000 ml @ 75 mls/hr [id number] IV 02/10/19 19:00 03/11/19 18:59 02/11/19 22:01 Trazodone HCl (Desyrel) 150 mg BEDTIME ORAL 02/11/19 21:00 03/11/19 20:59 02/12/19 21:41 Jack Andrews MD Feb 13, 2019 10:55
[2019-02-13 12:00] VITALS: BP 109/58
--- NOTE | 2019-02-13 12:08 | Nephrology Progress Note ---
Assessment/Plan Problem List: (1) Morbid obesity with BMI of 50.0-59.9, adult (2) Hypertension (3) Anemia (4) Proteinuria Assessment Proteinuria ? Hypoalbuminemia Morbid obesity - r/o Diabetic nephropathy CAD Anemia HTN Smoker Plan Phos , Mag supplement as needed 24 H urine protein keep BP and BS in check continue per consultants Anemia queen ? Med-Surg- defer to [facility] Subjective ROS Limited/Unobtainable: No Constitutional: Reports: malaise, weakness Objective Objective Last 24 Hour Vital Signs Date Time Temp Pulse Resp B/P (MAP) Pulse Ox O2 Delivery O2 Flow Rate FiO2 02/13/19 09:00 65 106/63 02/13/19 09:00 107/63 02/13/19 09:00 65 106/63 02/13/19 09:00 Room Air 02/13/19 08:00 97.3 68 21 107/63 (78) 94 02/13/19 08:00 68 02/13/19 04:00 66 02/13/19 04:00 98.1 66 18 110/66 (81) 96 02/13/19 00:00 72 02/13/19 00:00 97.6 72 18 105/67 (80) 98 02/12/19 21:42 69 138/74 02/12/19 21:42 138/74 02/12/19 21:00 Room Air 02/12/19 20:00 97.5 64 20 132/72 (92) 95 02/12/19 20:00 64 02/12/19 16:00 61 02/12/19 16:00 98.2 64 18 111/65 (80) 98 Intake and Output 02/12/19 02/13/19 19:00 07:00 Intake Total 400 ml Balance 400 ml Intake Oral 400 ml # Voids 3 # Bowel Movements 2 Laboratory Tests 02/12/19 16:11: Stool Occult Blood Negative Height (Feet): 5 Height (Inches): 9.00 Weight (Pounds): 400 General Appearance: no apparent distress Cardiovascular: normal rate Respiratory/Chest: decreased breath sounds Abdomen: other - obese Objective no change Richy Hernandez MD Feb 13, 2019 12:08
--- NOTE | 2019-02-13 14:03 | Consultation ---
History of Present Illness General Date patient seen: Feb 13, 2019 Time patient seen: 14:04 Chief Complaint: Generalized body pain Referring physician: Marylu Reason for Consultation: Pain Management Present Illness HPI Patient has been admitted under the care of Dr. Valero due to Dehydration. She is in bed and has been c/o body pain Dr. Lang started on Tylenol #3 Q4h PRN which has been helping patient to tolerate the pain. Allergies: Coded Allergies: No Known Allergies (Unverified , 02/01/15) Medication History Scheduled Acetaminophen (Acetaminophen), 500 MG ORAL BID, (Reported) Amiodarone Hcl* (Cordarone*), 200 MG ORAL DAILY, (Reported) Amitriptyline Hcl* (Amitriptyline Hcl*), 10 MG ORAL BEDTIME, (Reported) Amlodipine Besylate (Norvasc), 10 MG ORAL DAILY, (Reported) Aripiprazole* (Abilify*), 2 MG ORAL DAILY, (Reported) Aspirin* (Aspir 81*), 81 MG ORAL DAILY, (Reported) Atorvastatin (Lipitor), 20 MG ORAL BEDTIME, (Reported) Atorvastatin Calcium* (Lipitor*), 10 MG ORAL BEDTIME, (Reported) Benazepril Hcl* (Benazepril Hcl*), 10 MG ORAL DAILY, (Reported) Clopidogrel* (Clopidogrel*), 75 MG ORAL DAILY, (Reported) Gabapentin* (Gabapentin*), 100 MG ORAL BID, (Reported) Losartan Potassium (Losartan Potassium), 50 MG ORAL BID, (Reported) Lurasidone Hcl (Latuda), 90 MG PO BEDTIME, (Reported) Metoprolol Tartrate* (Metoprolol Tartrate*), 75 MG ORAL BID, (Reported) Trazodone Hcl (Trazodone Hcl), 300 MG ORAL DAILY, (Reported) Patient History Healthcare decision maker Resuscitation status Full Code Advanced Directive on File Past Medical/Surgical History Past Medical/Surgical History: (1) Diabetes (2) Anemia (3) Hypertension (4) Dehydration (5) Diarrhea (6) Morbid obesity with BMI of 50.0-59.9, adult Review of Systems Constitutional: Reports: weakness Eye: Reports: no symptoms ENT: Reports: no symptoms Respiratory: Reports: no symptoms Cardiovascular: Reports: no symptoms Gastrointestinal: Reports: no symptoms Genitourinary: Reports: no symptoms Musculoskeletal: Reports: joint pain Skin: Reports: no symptoms Psychiatric: Reports: no symptoms Neurological: Reports: no symptoms Endocrine: Reports: no symptoms Hematologic/Lymphatic: Reports: no symptoms Physical Exam General Appearance: no apparent distress, alert Neck: normal alignment, supple Respiratory/Chest: decreased breath sounds Cardiovascular/Chest: normal rate, regular rhythm Abdomen: other - obese Extremities: trace edema Neurologic: alert, oriented x 3 Last 24 Hour Vital Signs Date Time Temp Pulse Resp B/P (MAP) Pulse Ox O2 Delivery O2 Flow Rate FiO2 02/13/19 12:00 97.2 64 21 109/58 (75) 95 02/13/19 09:00 65 106/63 02/13/19 09:00 107/63 02/13/19 09:00 65 106/63 02/13/19 09:00 Room Air 02/13/19 08:00 97.3 68 21 107/63 (78) 94 02/13/19 08:00 68 02/13/19 04:00 66 02/13/19 04:00 98.1 66 18 110/66 (81) 96 02/13/19 00:00 72 02/13/19 00:00 97.6 72 18 105/67 (80) 98 02/12/19 21:42 69 138/74 02/12/19 21:42 138/74 02/12/19 21:00 Room Air 02/12/19 20:00 97.5 64 20 132/72 (92) 95 02/12/19 20:00 64 02/12/19 16:00 61 02/12/19 16:00 98.2 64 18 111/65 (80) 98 Intake and Output 02/12/19 02/13/19 19:00 07:00 Intake Total 400 ml Balance 400 ml Intake Oral 400 ml # Voids 3 # Bowel Movements 2 Laboratory Tests Test 02/12/19 16:11 Stool Occult Blood Negative (NEGATIVE) Height (Feet): 5 Height (Inches): 9.00 Weight (Pounds): 400 Medications Current Medications Medications (Trade) Dose Ordered Sig/Lora Route PRN Reason Start Time Stop Time Status Last Admin Dose Admin Acetaminophen (Tylenol) 500 mg Q4H PRN ORAL Mild Pain/Temp > 100.5 02/10/19 19:00 03/11/19 18:59 02/12/19 09:38 Acetaminophen/ Codeine Phosphate (Tylenol #3) 1 tab Q4H PRN ORAL For Pain 02/12/19 22:30 02/19/19 22:29 02/13/19 09:34 Amlodipine Besylate (Norvasc) 10 mg DAILY ORAL 02/11/19 09:00 03/12/19 08:59 02/12/19 09:36 Apixaban (Eliquis) 10 mg BID ORAL 02/11/19 09:00 03/11/19 17:59 02/13/19 09:34 Aspirin (Ecotrin) 81 mg DAILY ORAL 02/11/19 09:00 03/12/19 08:59 02/13/19 09:35 Atorvastatin Calcium (Lipitor) 20 mg BEDTIME ORAL 02/10/19 21:00 03/11/19 20:59 02/12/19 21:41 Docusate Sodium (Colace) 100 mg TWICE A DAY ORAL 02/11/19 09:00 03/13/19 08:59 02/13/19 09:35 Famotidine (Pepcid) 20 mg BID ORAL 02/11/19 09:00 03/11/19 17:59 02/13/19 09:34 Folic Acid (Folate) 2 mg DAILY ORAL 02/11/19 09:00 03/13/19 08:59 02/13/19 09:35 Gabapentin (Neurontin) 300 mg BEDTIME ORAL 02/10/19 21:00 03/11/19 20:59 02/12/19 21:41 Iron Sucrose 100 mg/Sodium Chloride 60 ml @ 240 mls/hr BEDTIME IV 02/10/19 21:00 02/14/19 21:14 02/12/19 22:47 Lactulose (Cephulac) 10 gm THREE TIMES A DAY ORAL 02/11/19 09:00 03/13/19 08:59 02/13/19 13:09 Losartan Potassium (Cozaar) 50 mg EVERY 12 HOURS ORAL 02/10/19 21:00 03/11/19 20:59 02/12/19 21:42 Metoprolol Tartrate (Lopressor) 50 mg Q12HR ORAL 02/10/19 21:00 03/11/19 20:59 02/12/19 21:42 Ondansetron HCl (Zofran) 4 mg Q6H PRN IVP Nausea & Vomiting 02/10/19 19:00 03/11/19 18:59 Polyethylene Glycol (Miralax) 17 gm BEDTIME ORAL 02/11/19 21:00 03/13/19 20:59 02/11/19 21:20 Sodium Chloride 1,000 ml @ 75 mls/hr [id number] IV 02/10/19 19:00 03/11/19 18:59 02/13/19 13:10 Trazodone HCl (Desyrel) 150 mg BEDTIME ORAL 02/11/19 21:00 03/11/19 20:59 02/12/19 21:41 Assessment/Plan Assessment/Plan: (1) Morbid obesity (2) Multiple Joint pain and Osteoarthritis Patient will be continued on Tylenol #3 D/w Dr. Lang and he concurred. Thank you for courtesy of this consultation Abel Hooks Feb 13, 2019 14:02
[2019-02-13 16:00] VITALS: BP 121/75
[2019-02-13] MEDS ORDERED: NS 275ml ONE (16:01)
--- NOTE | 2019-02-13 16:24 | Cardiac Electrophysiology PN ---
Assessment/Plan Assessment/Plan 1. Bradycardia. Resolved with decreasing metoprolol to 50 mg b.i.d. 2. Hypertension. On Norvasc 10 mg daily, metoprolol 50 b.i.d. and losartan 50 mg b.i.d. 3. Hyperlipidemia. On Lipitor. 4. Right common femoral vein DVT. On Eliquis 10 mg b.i.d. 5. Diarrhea and anemia. Further evaluation by Dr. Durant. stool OB negative 6. Morbid obesity. 7. History of diabetes. 8. History of tobacco use. DW RN Subjective Subjective Alert in NAD in SR. No new events. Stool OB negative Objective Last 24 Hour Vital Signs Date Time Temp Pulse Resp B/P (MAP) Pulse Ox O2 Delivery O2 Flow Rate FiO2 02/13/19 12:00 97.2 64 21 109/58 (75) 95 02/13/19 12:00 67 02/13/19 09:00 65 106/63 02/13/19 09:00 107/63 02/13/19 09:00 65 106/63 02/13/19 09:00 Room Air 02/13/19 08:00 97.3 68 21 107/63 (78) 94 02/13/19 08:00 68 02/13/19 04:00 66 02/13/19 04:00 98.1 66 18 110/66 (81) 96 02/13/19 00:00 72 02/13/19 00:00 97.6 72 18 105/67 (80) 98 02/12/19 21:42 69 138/74 02/12/19 21:42 138/74 02/12/19 21:00 Room Air 02/12/19 20:00 97.5 64 20 132/72 (92) 95 02/12/19 20:00 64 Intake and Output 02/12/19 02/13/19 19:00 07:00 Intake Total 400 ml Balance 400 ml Intake Oral 400 ml # Voids 3 # Bowel Movements 2 Objective HEAD AND NECK: No JVD or carotid bruit. LUNGS: Clear. CARDIOVASCULAR: Regular S1 and S2 with no gallop or murmur. ABDOMEN: Morbidly obese. EXTREMITIES: 1+ pitting edema. Ian Kaminski MD Feb 13, 2019 16:24
--- NOTE | 2019-02-13 16:28 | Coder Physician Query ---
Clarification is required for compliance, coding accuracy, and to reflect severity of illness for this patient Dear Dr. Valero Date: 02/13/2019 CDS Name: Latasha Goldsmith "Sepsis" has been documented once in the medical records by Dr. Durant on 02/11. Upon medical review it is difficult to determine if this diagnosis is still being worked out, treated or ruled out. Patient is admitted with Gastroenteritis and UTI. On admission WBC:11.7 HR: 85 RR: 18 Temp: 98.4 Rx: IV Ceftriaxone Can you please clarify the status of aforementioned diagnosis? [ ] Treated and resolved [ ] Presumed and treated [ ] Still being worked up [ ] Ruled out Present on Admission: [ ] Yes [ ] No [ ] Clinically Undetermined Physician signature Date Please also document in your Progress Notes and/or Discharge Summary and indicate if the condition was present on admission. VITALY
--- NOTE | 2019-02-13 16:29 | NUR ---
NURSE NOTES: Dr. Kaminski assessed pt at bedside, ordered Mag Ox 400mg PO BID to supplement Magnesium. Will carry out orders.
--- NOTE | 2019-02-13 16:39 | NUR ---
CASE MANAGEMENT: REVIEW 02/12/2019 SI:DEHYDRATION T 97.2 HR 69 RR 18 B/P 127/72 SATS 98% ON RA STOOL OB (-) IS: IVF @ 75 mL/HR COZAAR PO Q12H LIPITOR PO QHS TRAZODONE PO QHS GABAPENTIN PO QHS VENOFER IV QHS ELIQUIS PO BID PEPCID PO BID ASA PO QD NORVASC PO QD SODIUM PHOS IV X1 K PHOS IV X1 LOPRESSOR PO Q12H CEFTRIAXONE IV Q24H TELE STATUS DCP: PATIENT TO BE DISCHARGED TO HOME ONCE MEDICALLY CLEARED. 02/13/2019 SI:DEHYDRATION T 97.6 HR 72 RR 18 B/P 105/67 SATS 98% ON RA NO LABS TODAY IS: IVF @ 75 mL/HR COZAAR PO Q12H LIPITOR PO QHS TRAZODONE PO QHS GABAPENTIN PO QHS VENOFER IV QHS ELIQUIS PO BID PEPCID PO BID ASA PO QD NORVASC PO QD SODIUM PHOS IV X1 K PHOS IV X1 LOPRESSOR PO Q12H CEFTRIAXONE IV Q24H TELE STATUS DCP: PATIENT TO BE DISCHARGED TO HOME ONCE MEDICALLY CLEARED.
[2019-02-13] MEDS: Magnesium Oxide 400mg tab ORAL SCH (17:25)
--- NOTE | 2019-02-13 19:25 | NUR ---
HAND-OFF: Report given to PEPPER Jasmine. No acute s/s of distress noted.
--- NOTE | 2019-02-13 19:26 | NUR ---
NURSE NOTES: Received pt from PEPPER Hayes. Pt is awake and resting in bed. IV site intact. Will continue with plan of care.
[2019-02-13 20:00] VITALS: BP 126/69
[2019-02-13] MEDS: Miralax 17gm pkt ORAL SCH (21:00)
[2019-02-13] MEDS: Iron Sucrose 100 MG in NS 55 ML IV SCH (21:24)
[2019-02-13] MEDS: Atorvastatin 20mg tab ORAL SCH (21:24)
[2019-02-13] MEDS: TraZODone 100mg tab ORAL SCH (21:24)
--- NOTE | 2019-02-13 21:57 | General Progress Note ---
Assessment/Plan Problem List: (1) Chest pain ICD Codes: R07.9 - Chest pain SNOMED: 39693611 (2) Morbid obesity with BMI of 50.0-59.9, adult ICD Codes: E66.01 - Morbid (severe)obesity due to excess calories; Z68.43 - Body mass index (bmi) 50-59.9 , adult SNOMED: 027842970 (3) Hypertension ICD Codes: I10 - Essential (primary) hypertension SNOMED: 48117788 (4) Diarrhea ICD Codes: R19.7 - Diarrhea, unspecified SNOMED: 74387726 (5) Diabetes ICD Codes: E11.9 - Type 2 diabetes mellitus without complications SNOMED: 76982386 (6) ACS (acute coronary syndrome) ICD Codes: I24.9 - ACS (acute coronary syndrome) SNOMED: 835476651 (7) Anemia ICD Codes: D64.9 - Anemia, unspecified SNOMED: 526961082 Status: progressing Assessment/Plan: uti. abx per id htn improving cp copd. no wheezing no chest pain obese r Subjective ROS Limited/Unobtainable: Yes Allergies: Coded Allergies: No Known Allergies (Unverified , 02/01/15) Objective Last 24 Hour Vital Signs Date Time Temp Pulse Resp B/P (MAP) Pulse Ox O2 Delivery O2 Flow Rate FiO2 02/13/19 21:27 127/69 02/13/19 21:26 70 128/67 02/13/19 16:00 70 02/13/19 16:00 97.0 64 20 121/75 (90) 97 02/13/19 12:00 97.2 64 21 109/58 (75) 95 02/13/19 12:00 67 02/13/19 09:00 65 106/63 02/13/19 09:00 107/63 02/13/19 09:00 65 106/63 02/13/19 09:00 Room Air 02/13/19 08:00 97.3 68 21 107/63 (78) 94 02/13/19 08:00 68 02/13/19 04:00 66 02/13/19 04:00 98.1 66 18 110/66 (81) 96 02/13/19 00:00 72 02/13/19 00:00 97.6 72 18 105/67 (80) 98 Intake and Output 02/12/19 02/13/19 19:00 07:00 Intake Total 400 ml Balance 400 ml Intake Oral 400 ml # Voids 3 # Bowel Movements 2 Height (Feet): 5 Height (Inches): 9.00 Weight (Pounds): 400 Cardiovascular: normal rate Respiratory/Chest: lungs clear Abdomen: soft Kiki Valero MD Feb 13, 2019 21:57
--- NOTE | 2019-02-13 23:14 | Hematology/Onc Progress Note ---
Assessment/Plan Assessment/Plan Assessment and Recs: # Anemia of iron deficiency --> Anemia workup has been reviewed Ferritin 67, Iron 31, TIBC 254, Iron sat 12% . --> No evidence of hemolysis is noted, peripheral smear has been reviewed. --> Hgb goal >7. Transfuse prn. --> HGB 11.1 --> Iron ordered 02/10 x 5 days --> Medications have been reviewed --> GI Following appreciate rec's, Stool ob has been negative. --> bone marrow biopsy is not indicated given the other more likely causes # Eosinophilia -- elevated wbc noted and eosinophil % is elevated as well --> rule out underlying infection + UTI, as per ID recs, abx as required --> no evidence of allergic reaction, common cause --> medications have been reviewed --> does not have a history of malignancy, no evidence of lymphoma, common cause --> rule out adrenal insufficiency, no recent steriod use is noted --> obtain stool O&P rule out parasitic infections and/or cocci --> if persists consider CT scan, bone marrow biopsy or LP as required --> trend eosinophil % #. Right common femoral vein DVT. On Eliquis 10 mg b.i.d. --> cardio following Dr. Kaminski appreciate rec's. # Urinary tract infection --> on abx as per ID # Hypocalcemia -- Ca++ repleted # Hypotension on IVF, given bolus --> Improved. The timing of this note does not necessarily reflect the time of the patient was seen. GREATLY APPRECIATE CONSULTATION. Subjective Allergies: Coded Allergies: No Known Allergies (Unverified , 02/01/15) Subjective Subjective 02/10: Pt is awake and oriented x4. Pt tolerating well, no signs of respiratory distress. 02/11: 24 hour urine in progress, no acute distress. 02/12: pt is eating her breakfast complains of generalized body pains. 02/13: no acute events reported, tolerating Eliquis for DVT . Objective Objective Current Medications Medications (Trade) Dose Ordered Sig/Lora Route PRN Reason Start Time Stop Time Status Last Admin Dose Admin Acetaminophen (Tylenol) 500 mg Q4H PRN ORAL Mild Pain/Temp > 100.5 02/10/19 19:00 03/11/19 18:59 02/12/19 09:38 Acetaminophen/ Codeine Phosphate (Tylenol #3) 1 tab Q4H PRN ORAL For Pain 02/12/19 22:30 02/19/19 22:29 02/13/19 09:34 Amlodipine Besylate (Norvasc) 10 mg DAILY ORAL 02/11/19 09:00 03/12/19 08:59 02/12/19 09:36 Apixaban (Eliquis) 10 mg BID ORAL 02/11/19 09:00 03/11/19 17:59 02/13/19 17:25 Aspirin (Ecotrin) 81 mg DAILY ORAL 02/11/19 09:00 03/12/19 08:59 02/13/19 09:35 Atorvastatin Calcium (Lipitor) 20 mg BEDTIME ORAL 02/10/19 21:00 03/11/19 20:59 02/13/19 21:24 Docusate Sodium (Colace) 100 mg TWICE A DAY ORAL 02/11/19 09:00 03/13/19 08:59 02/13/19 17:25 Famotidine (Pepcid) 20 mg BID ORAL 02/11/19 09:00 03/11/19 17:59 02/13/19 17:25 Folic Acid (Folate) 2 mg DAILY ORAL 02/11/19 09:00 03/13/19 08:59 02/13/19 09:35 Gabapentin (Neurontin) 300 mg BEDTIME ORAL 02/10/19 21:00 03/11/19 20:59 02/13/19 21:25 Iron Sucrose 100 mg/Sodium Chloride 60 ml @ 240 mls/hr BEDTIME IV 02/10/19 21:00 02/14/19 21:14 02/13/19 21:24 Lactulose (Cephulac) 10 gm THREE TIMES A DAY ORAL 02/11/19 09:00 03/13/19 08:59 02/13/19 17:24 Losartan Potassium (Cozaar) 50 mg EVERY 12 HOURS ORAL 02/10/19 21:00 03/11/19 20:59 02/13/19 21:27 Magnesium Oxide (Mag-Ox 400mg) 400 mg BID ORAL 02/13/19 18:00 03/15/19 17:59 02/13/19 17:25 Metoprolol Tartrate (Lopressor) 50 mg Q12HR ORAL 02/10/19 21:00 03/11/19 20:59 02/13/19 21:26 Ondansetron HCl (Zofran) 4 mg Q6H PRN IVP Nausea & Vomiting 02/10/19 19:00 03/11/19 18:59 Polyethylene Glycol (Miralax) 17 gm BEDTIME ORAL 02/11/19 21:00 03/13/19 20:59 02/11/19 21:20 Sodium Chloride 1,000 ml @ 75 mls/hr [id number] IV 02/10/19 19:00 03/11/19 18:59 02/13/19 13:10 Trazodone HCl (Desyrel) 150 mg BEDTIME ORAL 02/11/19 21:00 03/11/19 20:59 02/13/19 21:24 Last 24 Hour Vital Signs Date Time Temp Pulse Resp B/P (MAP) Pulse Ox O2 Delivery O2 Flow Rate FiO2 02/13/19 21:27 127/69 02/13/19 21:26 70 128/67 02/13/19 16:00 70 02/13/19 16:00 97.0 64 20 121/75 (90) 97 02/13/19 12:00 97.2 64 21 109/58 (75) 95 02/13/19 12:00 67 02/13/19 09:00 65 106/63 02/13/19 09:00 107/63 02/13/19 09:00 65 106/63 02/13/19 09:00 Room Air 02/13/19 08:00 97.3 68 21 107/63 (78) 94 02/13/19 08:00 68 02/13/19 04:00 66 02/13/19 04:00 98.1 66 18 110/66 (81) 96 02/13/19 00:00 72 02/13/19 00:00 97.6 72 18 105/67 (80) 98 02/12/19 21:42 69 138/74 02/12/19 21:42 138/74 02/12/19 21:00 Room Air 02/12/19 20:00 97.5 64 20 132/72 (92) 95 02/12/19 20:00 64 02/12/19 16:00 61 02/12/19 16:00 98.2 64 18 111/65 (80) 98 02/12/19 12:00 66 02/12/19 12:00 97.2 69 18 127/72 (90) 98 02/12/19 09:36 73 124/71 02/12/19 09:36 73 124/71 02/12/19 09:35 124/71 02/12/19 09:00 Room Air 02/12/19 08:00 79 02/12/19 08:00 98.1 73 16 124/71 (88) 92 02/12/19 04:00 67 02/12/19 04:00 98.1 70 20 132/65 (87) 91 02/12/19 00:00 98.2 78 20 116/71 (86) 92 02/12/19 00:00 69 Intake and Output 02/12/19 02/13/19 19:00 07:00 Intake Total 400 ml Balance 400 ml Intake Oral 400 ml # Voids 3 # Bowel Movements 2 Labs Test 02/11/19 05:05 02/12/19 16:11 White Blood Count 10.8 K/UL (4.8-10.8) Red Blood Count 4.16 M/UL (4.20-5.40) Hemoglobin 11.1 G/DL (12.0-16.0) Hematocrit 35.6 % (37.0-47.0) Mean Corpuscular Volume 86 FL (80-99) Mean Corpuscular Hemoglobin 26.6 PG (27.0-31.0) Mean Corpuscular Hemoglobin Concent 31.1 G/DL (32.0-36.0) Red Cell Distribution Width 17.4 % (11.6-14.8) Platelet Count 205 K/UL (150-450) Mean Platelet Volume 9.0 FL (6.5-10.1) Neutrophils (%) (Auto) 64.9 % (45.0-75.0) Lymphocytes (%) (Auto) 14.8 % (20.0-45.0) Monocytes (%) (Auto) 9.8 % (1.0-10.0) Eosinophils (%) (Auto) 9.2 % (0.0-3.0) Basophils (%) (Auto) 1.2 % (0.0-2.0) Sodium Level 140 MMOL/L (136-145) Potassium Level 3.9 MMOL/L (3.5-5.1) Chloride Level 104 MMOL/L (98-107) Carbon Dioxide Level 27 MMOL/L (21-32) Anion Gap 9 mmol/L (5-15) Blood Urea Nitrogen 7 mg/dL (7-18) Creatinine 0.9 MG/DL (0.55-1.30) Estimat Glomerular Filtration Rate > 60 mL/min (>60) Glucose Level 98 MG/DL (74-106) Calcium Level 8.5 MG/DL (8.5-10.1) Total Bilirubin 0.3 MG/DL (0.2-1.0) Aspartate Amino Transf (AST/SGOT) 13 U/L (15-37) Alanine Aminotransferase (ALT/SGPT) 14 U/L (12-78) Alkaline Phosphatase 67 U/L (46-116) Total Protein 6.7 G/DL (6.4-8.2) Albumin 2.3 G/DL (3.4-5.0) Globulin 4.4 g/dL Albumin/Globulin Ratio 0.5 (1.0-2.7) Stool Occult Blood Negative (NEGATIVE) Height (Feet): 5 Height (Inches): 9.00 Weight (Pounds): 400 Objective PE General Appearance: no apparent distress, alert Morbidly Obese HEENT: atraumatic, anicteric, mucous membranes moist Neck: normal alignment, supple, normal inspection Respiratory/Chest: lungs clear, no respiratory distress, no accessory muscle use, decreased breath sounds Cardiovascular/Chest: normal peripheral pulses, normal rate, regular rhythm Abdomen: non tender, soft, no organomegaly Extremities: non-tender, normal inspection, no edema Neurologic:, alert, oriented x 3 BLE weakness Lisa Crocker NP Feb 13, 2019 23:14
[2019-02-14] VITALS: BP 121/66
[2019-02-14] MEDS: Tylenol #3 tab (300mg/30mg) ORAL PRN ×2 (00:10→04:56)
[2019-02-14 04:00] VITALS: BP 130/62
--- NOTE | 2019-02-14 05:01 | Cardiac Electrophysiology PN ---
Assessment/Plan Assessment/Plan 1. Bradycardia. Resolved with decreasing metoprolol to 50 mg b.i.d. 2. Hypertension. On Norvasc 10 mg daily, metoprolol 50 b.i.d. and losartan 50 mg b.i.d. 3. Hyperlipidemia. On Lipitor. 4. Right common femoral vein DVT. On Eliquis 10 mg b.i.d. 5. Diarrhea and anemia. Further evaluation by Dr. Durant. stool OB negative 6. Morbid obesity. 7. History of diabetes. 8. History of tobacco use. 9. Generalized pain DW RN Subjective Subjective Alert in NAD in SR. No new events. Still has generalized body ache. RN at bedside Objective Last 24 Hour Vital Signs Date Time Temp Pulse Resp B/P (MAP) Pulse Ox O2 Delivery O2 Flow Rate FiO2 02/14/19 04:00 59 02/14/19 04:00 98.9 59 19 130/62 (84) 96 02/14/19 00:00 71 02/14/19 00:00 98.4 71 20 121/66 (84) 96 02/13/19 21:27 127/69 02/13/19 21:26 70 128/67 02/13/19 21:00 Room Air 02/13/19 20:00 98.1 66 22 126/69 (88) 95 02/13/19 20:00 66 02/13/19 16:00 70 02/13/19 16:00 97.0 64 20 121/75 (90) 97 02/13/19 12:00 97.2 64 21 109/58 (75) 95 02/13/19 12:00 67 02/13/19 09:00 65 106/63 02/13/19 09:00 107/63 02/13/19 09:00 65 106/63 02/13/19 09:00 Room Air 02/13/19 08:00 97.3 68 21 107/63 (78) 94 02/13/19 08:00 68 Intake and Output 02/13/19 02/14/19 18:59 06:59 Intake Total 450 ml Balance 450 ml Intake Oral 450 ml # Voids 1 # Bowel Movements 1 1 Objective HEAD AND NECK: No JVD or carotid bruit. LUNGS: Clear. CARDIOVASCULAR: Regular S1 and S2 with no gallop or murmur. ABDOMEN: Morbidly obese. EXTREMITIES: 1+ pitting edema. Ian Kaminski MD Feb 14, 2019 05:00
[2019-02-14 06:40] LABS: BASOPHILS % (AUTO) 1.1 % (0.0-2.0); EOSINOPHILS % (AUTO) 6.7 % (0.0-3.0); HEMATOCRIT 33.4 % (37.0-47.0); HEMOGLOBIN 10.2 G/DL (12.0-16.0); LYMPHOCYTES % (AUTO) 19.5 % (20.0-45.0); MEAN CORPUSCULAR VOLUME 87 FL (80-99); NEUTROPHILS % (AUTO) 62.8 % (45.0-75.0); PLATELET COUNT 202 K/UL (150-450); RED BLOOD COUNT 3.83 M/UL (4.20-5.40); RED CELL DISTRIBUTION WIDTH 17.7 % (11.6-14.8)
[2019-02-14 07:01] LABS: ALANINE AMINOTRANSFERASE 16 U/L (12-78); ALBUMIN 2.2 G/DL (3.4-5.0); ALBUMIN/GLOBULIN RATIO 0.5 (1.0-2.7); ALKALINE PHOSPHATASE 73 U/L (46-116); ANION GAP 4 mmol/L (5-15); ASPARTATE AMINO TRANSFERASE 16 U/L (15-37); BILIRUBIN,TOTAL 0.1 MG/DL (0.2-1.0); BLOOD UREA NITROGEN 8 mg/dL (7-18); CALCIUM 8.5 MG/DL (8.5-10.1); CARBON DIOXIDE 32 MMOL/L (21-32); CHLORIDE 106 MMOL/L (98-107); CREATININE 0.9 MG/DL (0.55-1.30); PHOSPHORUS 3.1 MG/DL (2.5-4.9); POTASSIUM 4.3 MMOL/L (3.5-5.1); SODIUM 141 MMOL/L (136-145)
--- NOTE | 2019-02-14 07:28 | NUR ---
NURSE NOTES: Notified Dr. Velazquez about pt WBC elevating. stated he is aware and hung up on me.
--- NOTE | 2019-02-14 07:40 | NUR ---
HAND-OFF: Report given to PEPPER Aponte. Endorsed plan of care.
--- NOTE | 2019-02-14 07:41 | NUR ---
NURSE NOTES: Report received from PEPPER Jasmine. Pt is sitting in bed, in stable condition and eating her breakfast. alert and oriented x4. Breathing is even and unlabored with 2 liter Nasal Cannula. No acute distress noted at this time. Bed in lowest position with brake engaged and side rails up x2. Call light and side table placed within reach. Bed alarm on. Will continue to monitor.
[2019-02-14 08:00] VITALS: BP_SYST 133; BP_SYST 91; BP_DIAS 45; BP_DIAS 71
[2019-02-14] MEDS: Losartan 50mg tab ORAL SCH (09:00)
[2019-02-14] MEDS: Metoprolol Tartrate 50mg tab ORAL SCH (09:00)
[2019-02-14] MEDS: Docusate 100mg cap ORAL SCH (09:32)
[2019-02-14] MEDS: Aspirin EC 81mg tab ORAL SCH (09:33)
[2019-02-14] MEDS: Lactulose 10gm/15ml UDC ORAL SCH ×2 (09:33→13:32)
[2019-02-14] MEDS: Eliquis 5mg tablet ORAL SCH (09:33)
[2019-02-14] MEDS: Magnesium Oxide 400mg tab ORAL SCH (09:33)
--- NOTE | 2019-02-14 10:18 | GI Progress Note ---
Assessment/Plan Problems: (1) Diarrhea ICD Codes: R19.7 - Diarrhea, unspecified SNOMED: 49562237 (2) Morbid obesity with BMI of 50.0-59.9, adult ICD Codes: E66.01 - Morbid (severe)obesity due to excess calories; Z68.43 - Body mass index (bmi) 50-59.9 , adult SNOMED: 502525494 (3) Diabetes ICD Codes: E11.9 - Type 2 diabetes mellitus without complications SNOMED: 51634695 (4) Anemia ICD Codes: D64.9 - Anemia, unspecified SNOMED: 029393802 Status: stable Status Narrative Discussed with Dr. Durant Assessment/Plan Occult blood stool negative Stool studies not collected okay for DC per GI standpoint iv iron fu cardiology recs bowel regimen Outpatient GI procedures The patient was seen and examined at bedside and all new and available data was reviewed in the patients chart. I agree with the above findings, impression and plan. (Patient seen earlier today. Signature stamp does not reflect patient encounter time.). - Faisal Durant MD Subjective Gastrointestinal/Abdominal: Reports: no symptoms Objective Last 24 Hour Vital Signs Date Time Temp Pulse Resp B/P (MAP) Pulse Ox O2 Delivery O2 Flow Rate FiO2 02/14/19 09:00 60 91/45 02/14/19 09:00 91/45 02/14/19 08:00 97.7 60 21 91/45 (60) 96 02/14/19 04:00 59 02/14/19 04:00 98.9 59 19 130/62 (84) 96 02/14/19 00:00 71 02/14/19 00:00 98.4 71 20 121/66 (84) 96 02/13/19 21:27 127/69 02/13/19 21:26 70 128/67 02/13/19 21:00 Room Air 02/13/19 20:00 98.1 66 22 126/69 (88) 95 02/13/19 20:00 66 02/13/19 16:00 70 02/13/19 16:00 97.0 64 20 121/75 (90) 97 02/13/19 12:00 97.2 64 21 109/58 (75) 95 02/13/19 12:00 67 Intake and Output 02/13/19 02/14/19 19:00 07:00 Intake Total 450 ml Balance 450 ml Intake Oral 450 ml # Voids 1 2 # Bowel Movements 1 1 Laboratory Tests Test 02/14/19 04:50 White Blood Count 12.0 K/UL (4.8-10.8) H Red Blood Count 3.83 M/UL (4.20-5.40) L Hemoglobin 10.2 G/DL (12.0-16.0) L Hematocrit 33.4 % (37.0-47.0) L Mean Corpuscular Volume 87 FL (80-99) Mean Corpuscular Hemoglobin 26.5 PG (27.0-31.0) L Mean Corpuscular Hemoglobin Concent 30.5 G/DL (32.0-36.0) L Red Cell Distribution Width 17.7 % (11.6-14.8) H Platelet Count 202 K/UL (150-450) Mean Platelet Volume 9.1 FL (6.5-10.1) Neutrophils (%) (Auto) 62.8 % (45.0-75.0) Lymphocytes (%) (Auto) 19.5 % (20.0-45.0) L Monocytes (%) (Auto) 10.0 % (1.0-10.0) Eosinophils (%) (Auto) 6.7 % (0.0-3.0) H Basophils (%) (Auto) 1.1 % (0.0-2.0) Sodium Level 141 MMOL/L (136-145) Potassium Level 4.3 MMOL/L (3.5-5.1) Chloride Level 106 MMOL/L (98-107) Carbon Dioxide Level 32 MMOL/L (21-32) Anion Gap 4 mmol/L (5-15) L Blood Urea Nitrogen 8 mg/dL (7-18) Creatinine 0.9 MG/DL (0.55-1.30) Estimat Glomerular Filtration Rate > 60 mL/min (>60) Glucose Level 97 MG/DL (74-106) Uric Acid 5.1 MG/DL (2.6-7.2) Calcium Level 8.5 MG/DL (8.5-10.1) Phosphorus Level 3.1 MG/DL (2.5-4.9) Magnesium Level 1.7 MG/DL (1.8-2.4) L Total Bilirubin 0.1 MG/DL (0.2-1.0) L Aspartate Amino Transf (AST/SGOT) 16 U/L (15-37) Alanine Aminotransferase (ALT/SGPT) 16 U/L (12-78) Alkaline Phosphatase 73 U/L (46-116) Troponin I 0.004 ng/mL (0.000-0.056) Total Protein 6.3 G/DL (6.4-8.2) L Albumin 2.2 G/DL (3.4-5.0) L Globulin 4.1 g/dL Albumin/Globulin Ratio 0.5 (1.0-2.7) L Height (Feet): 5 Height (Inches): 9.00 Weight (Pounds): 400 General Appearance: WD/WN, no apparent distress, alert, obese Cardiovascular: normal rate Respiratory/Chest: normal breath sounds, no respiratory distress Abdominal Exam: normal bowel sounds, non tender, soft Extremities: normal range of motion, non-tender Kristal Araujo NP Feb 14, 2019 10:18
--- NOTE | 2019-02-14 10:51 | NUR ---
*-* INSURANCE *-* ALL CLINICALS AND REVIEWS HAVE BEEN FAXED TO: [facility] PERDUE: JACKI REF#[id number] F:[phone] P:[phone]
[2019-02-14 12:00] VITALS: BP 110/65
--- NOTE | 2019-02-14 13:02 | Nephrology Progress Note ---
Assessment/Plan Problem List: (1) Morbid obesity with BMI of 50.0-59.9, adult (2) Hypertension (3) Anemia (4) Proteinuria Assessment Proteinuria ? Hypoalbuminemia Morbid obesity - r/o Diabetic nephropathy CAD Anemia HTN Smoker Plan adjust BP meds Phos , Mag supplement as needed 24 H urine protein keep BP and BS in check continue per consultants Anemia queen ? Med-Surg- defer to wheel assembler Subjective ROS Limited/Unobtainable: No Constitutional: Reports: malaise Objective Objective Last 24 Hour Vital Signs Date Time Temp Pulse Resp B/P (MAP) Pulse Ox O2 Delivery O2 Flow Rate FiO2 02/14/19 12:00 97.5 90 20 110/65 (80) 95 02/14/19 09:00 Room Air 02/14/19 09:00 60 91/45 02/14/19 09:00 91/45 02/14/19 08:00 64 02/14/19 08:00 97.7 60 21 91/45 (60) 96 02/14/19 04:00 59 02/14/19 04:00 98.9 59 19 130/62 (84) 96 02/14/19 00:00 71 02/14/19 00:00 98.4 71 20 121/66 (84) 96 02/13/19 21:27 127/69 02/13/19 21:26 70 128/67 02/13/19 21:00 Room Air 02/13/19 20:00 98.1 66 22 126/69 (88) 95 02/13/19 20:00 66 02/13/19 16:00 70 02/13/19 16:00 97.0 64 20 121/75 (90) 97 Intake and Output 02/13/19 02/14/19 19:00 07:00 Intake Total 450 ml Balance 450 ml Intake Oral 450 ml # Voids 1 2 # Bowel Movements 1 1 Laboratory Tests 02/14/19 04:50: White Blood Count 12.0H, Red Blood Count 3.83L, Hemoglobin 10.2L, Hematocrit 33.4L, Mean Corpuscular Volume 87, Mean Corpuscular Hemoglobin 26.5L, Mean Corpuscular Hemoglobin Concent 30.5L, Red Cell Distribution Width 17.7H, Platelet Count 202, Mean Platelet Volume 9.1, Neutrophils (%) (Auto) 62.8, Lymphocytes (%) (Auto) 19.5L, Monocytes (%) (Auto) 10.0, Eosinophils (%) (Auto) 6.7H, Basophils (%) (Auto) 1.1, Sodium Level 141, Potassium Level 4.3, Chloride Level 106, Carbon Dioxide Level 32, Anion Gap 4L, Blood Urea Nitrogen 8, Creatinine 0.9, Estimat Glomerular Filtration Rate > 60, Glucose Level 97, Uric Acid 5.1, Calcium Level 8.5, Phosphorus Level 3.1, Magnesium Level 1.7L, Total Bilirubin 0.1L, Aspartate Amino Transf (AST/SGOT) 16, Alanine Aminotransferase ( ALT/SGPT) 16, Alkaline Phosphatase 73, Troponin I 0.004, Total Protein 6.3L, Albumin 2.2L, Globulin 4.1, Albumin/Globulin Ratio 0.5L Height (Feet): 5 Height (Inches): 9.00 Weight (Pounds): 400 General Appearance: no apparent distress Cardiovascular: normal rate Respiratory/Chest: decreased breath sounds Abdomen: soft, other - obese Objective no change Richy Hernandez MD Feb 14, 2019 13:02
--- NOTE | 2019-02-14 13:44 | Hematology/Onc Progress Note ---
Assessment/Plan Assessment/Plan Assessment/Plan Assessment and Recs: # Anemia of iron deficiency --> Anemia workup has been reviewed Ferritin 67, Iron 31, TIBC 254, Iron sat 12% . --> No evidence of hemolysis is noted, peripheral smear has been reviewed. --> Hgb goal >7. Transfuse prn. --> HGB 11.1--> 10.2 --> Iron ordered 02/10 x 5 days --> Medications have been reviewed --> GI Following appreciate rec's, Stool ob has been negative. --> bone marrow biopsy is not indicated given the other more likely causes # Eosinophilia -- elevated wbc noted and eosinophil % is elevated as well --> rule out underlying infection + UTI, as per ID recs, abx as required --> no evidence of allergic reaction, common cause --> medications have been reviewed --> does not have a history of malignancy, no evidence of lymphoma, common cause --> rule out adrenal insufficiency, no recent steriod use is noted --> obtain stool O&P rule out parasitic infections and/or cocci --> if persists consider CT scan, bone marrow biopsy or LP as required --> trend eosinophil % #. Right common femoral vein DVT. On Eliquis 10 mg b.i.d. --> cardio following Dr. Kaminski appreciate rec's. # Urinary tract infection --> on abx as per ID # Hypocalcemia -- Ca++ repleted # Hypotension on IVF, given bolus --> Improved. The timing of this note does not necessarily reflect the time of the patient was seen. GREATLY APPRECIATE CONSULTATION. Subjective Allergies: Coded Allergies: No Known Allergies (Unverified , 02/01/15) Subjective Subjective 02/10: Pt is awake and oriented x4. Pt tolerating well, no signs of respiratory distress. 02/11: 24 hour urine in progress, no acute distress. 02/12: pt is eating her breakfast complains of generalized body pains. 02/13: no acute events reported, tolerating Eliquis for DVT . 02/14: labs reviewed, no bleeding reported. Objective Objective Current Medications Medications (Trade) Dose Ordered Sig/Lora Route PRN Reason Start Time Stop Time Status Last Admin Dose Admin Acetaminophen (Tylenol) 500 mg Q4H PRN ORAL Mild Pain/Temp > 100.5 02/10/19 19:00 7/12/19 18:59 02/12/19 09:38 Acetaminophen/ Codeine Phosphate (Tylenol #3) 1 tab Q4H PRN ORAL For Pain 02/12/19 22:30 02/19/19 22:29 02/14/19 04:56 Amlodipine Besylate (Norvasc) 2.5 mg DAILY ORAL 02/15/19 09:00 03/12/19 08:59 Apixaban (Eliquis) 10 mg BID ORAL 02/11/19 09:00 03/11/19 17:59 02/14/19 09:33 Aspirin (Ecotrin) 81 mg DAILY ORAL 02/11/19 09:00 03/12/19 08:59 02/14/19 09:33 Atorvastatin Calcium (Lipitor) 20 mg BEDTIME ORAL 02/10/19 21:00 03/11/19 20:59 02/13/19 21:24 Docusate Sodium (Colace) 100 mg TWICE A DAY ORAL 02/11/19 09:00 03/13/19 08:59 02/14/19 09:32 Famotidine (Pepcid) 20 mg BID ORAL 02/11/19 09:00 03/11/19 17:59 02/14/19 09:33 Folic Acid (Folate) 2 mg DAILY ORAL 02/11/19 09:00 03/13/19 08:59 02/14/19 09:32 Gabapentin (Neurontin) 300 mg BEDTIME ORAL 02/10/19 21:00 03/11/19 20:59 02/13/19 21:25 Iron Sucrose 100 mg/Sodium Chloride 60 ml @ 240 mls/hr BEDTIME IV 02/10/19 21:00 02/14/19 21:14 02/13/19 21:24 Lactulose (Cephulac) 10 gm THREE TIMES A DAY ORAL 02/11/19 09:00 03/13/19 08:59 02/14/19 09:33 Losartan Potassium (Cozaar) 50 mg EVERY 12 HOURS ORAL 02/14/19 21:00 03/11/19 20:59 Magnesium Oxide (Mag-Ox 400mg) 400 mg BID ORAL 02/13/19 18:00 03/15/19 17:59 02/14/19 09:33 Metoprolol Tartrate (Lopressor) 50 mg Q12HR ORAL 02/10/19 21:00 03/11/19 20:59 02/13/19 21:26 Ondansetron HCl (Zofran) 4 mg Q6H PRN IVP Nausea & Vomiting 02/10/19 19:00 03/11/19 18:59 Polyethylene Glycol (Miralax) 17 gm BEDTIME ORAL 02/11/19 21:00 03/13/19 20:59 02/11/19 21:20 Sodium Chloride 1,000 ml @ 75 mls/hr [id number] IV 02/10/19 19:00 03/11/19 18:59 02/13/19 13:10 Trazodone HCl (Desyrel) 150 mg BEDTIME ORAL 02/11/19 21:00 03/11/19 20:59 02/13/19 21:24 Last 24 Hour Vital Signs Date Time Temp Pulse Resp B/P (MAP) Pulse Ox O2 Delivery O2 Flow Rate FiO2 02/14/19 12:00 97.5 90 20 110/65 (80) 95 02/14/19 09:00 Room Air 02/14/19 09:00 60 91/45 02/14/19 09:00 91/45 02/14/19 08:00 64 02/14/19 08:00 97.7 60 21 91/45 (60) 96 02/14/19 04:00 59 02/14/19 04:00 98.9 59 19 130/62 (84) 96 02/14/19 00:00 71 02/14/19 00:00 98.4 71 20 121/66 (84) 96 02/13/19 21:27 127/69 02/13/19 21:26 70 128/67 02/13/19 21:00 Room Air 02/13/19 20:00 98.1 66 22 126/69 (88) 95 02/13/19 20:00 66 02/13/19 16:00 70 02/13/19 16:00 97.0 64 20 121/75 (90) 97 02/13/19 12:00 97.2 64 21 109/58 (75) 95 02/13/19 12:00 67 02/13/19 09:00 65 106/63 02/13/19 09:00 107/63 02/13/19 09:00 65 106/63 02/13/19 09:00 Room Air 02/13/19 08:00 97.3 68 21 107/63 (78) 94 02/13/19 08:00 68 02/13/19 04:00 66 02/13/19 04:00 98.1 66 18 110/66 (81) 96 02/13/19 00:00 72 02/13/19 00:00 97.6 72 18 105/67 (80) 98 02/12/19 21:42 69 138/74 02/12/19 21:42 138/74 02/12/19 21:00 Room Air 02/12/19 20:00 97.5 64 20 132/72 (92) 95 02/12/19 20:00 64 02/12/19 16:00 61 02/12/19 16:00 98.2 64 18 111/65 (80) 98 Intake and Output 02/13/19 02/14/19 19:00 07:00 Intake Total 450 ml Balance 450 ml Intake Oral 450 ml # Voids 1 2 # Bowel Movements 1 1 Labs Test 02/12/19 16:11 02/14/19 04:50 Stool Occult Blood Negative (NEGATIVE) White Blood Count 12.0 K/UL (4.8-10.8) Red Blood Count 3.83 M/UL (4.20-5.40) Hemoglobin 10.2 G/DL (12.0-16.0) Hematocrit 33.4 % (37.0-47.0) Mean Corpuscular Volume 87 FL (80-99) Mean Corpuscular Hemoglobin 26.5 PG (27.0-31.0) Mean Corpuscular Hemoglobin Concent 30.5 G/DL (32.0-36.0) Red Cell Distribution Width 17.7 % (11.6-14.8) Platelet Count 202 K/UL (150-450) Mean Platelet Volume 9.1 FL (6.5-10.1) Neutrophils (%) (Auto) 62.8 % (45.0-75.0) Lymphocytes (%) (Auto) 19.5 % (20.0-45.0) Monocytes (%) (Auto) 10.0 % (1.0-10.0) Eosinophils (%) (Auto) 6.7 % (0.0-3.0) Basophils (%) (Auto) 1.1 % (0.0-2.0) Sodium Level 141 MMOL/L (136-145) Potassium Level 4.3 MMOL/L (3.5-5.1) Chloride Level 106 MMOL/L (98-107) Carbon Dioxide Level 32 MMOL/L (21-32) Anion Gap 4 mmol/L (5-15) Blood Urea Nitrogen 8 mg/dL (7-18) Creatinine 0.9 MG/DL (0.55-1.30) Estimat Glomerular Filtration Rate > 60 mL/min (>60) Glucose Level 97 MG/DL (74-106) Uric Acid 5.1 MG/DL (2.6-7.2) Calcium Level 8.5 MG/DL (8.5-10.1) Phosphorus Level 3.1 MG/DL (2.5-4.9) Magnesium Level 1.7 MG/DL (1.8-2.4) Total Bilirubin 0.1 MG/DL (0.2-1.0) Aspartate Amino Transf (AST/SGOT) 16 U/L (15-37) Alanine Aminotransferase (ALT/SGPT) 16 U/L (12-78) Alkaline Phosphatase 73 U/L (46-116) Troponin I 0.004 ng/mL (0.000-0.056) Total Protein 6.3 G/DL (6.4-8.2) Albumin 2.2 G/DL (3.4-5.0) Globulin 4.1 g/dL Albumin/Globulin Ratio 0.5 (1.0-2.7) Height (Feet): 5 Height (Inches): 9.00 Weight (Pounds): 400 Objective Objective PE General Appearance: no apparent distress, alert Morbidly Obese HEENT: atraumatic, anicteric, mucous membranes moist Neck: normal alignment, supple, normal inspection Respiratory/Chest: lungs clear, no respiratory distress, no accessory muscle use, decreased breath sounds Cardiovascular/Chest: normal peripheral pulses, normal rate, regular rhythm Abdomen: non tender, soft, no organomegaly Extremities: non-tender, normal inspection, no edema Neurologic:, alert, oriented x 3 BLE weakness Ru Carcamo MD Feb 14, 2019 13:44
--- NOTE | 2019-02-14 14:16 | NUR ---
NURSE NOTES: Patient discharged home, self care per DR. Bustillo'z order. All discharge instructions explained to patient verbalized understanding. Heart monitor removed and retuned to pvc monitor. Patient will continue home meds. IV discontinued, patient left the hospital in stable condition with [facility]. family members at home expecting the patient.
[2019-02-14] MEDS ORDERED: Losartan 50mg tab ORAL SCH (21:00)
--- NOTE | 2019-02-15 00:45 | Progress Note ---
DATE: 02/14/2019 SUBJECTIVE: The patient is doing well. She is still withdrawn, isolative, and depressed. Very minimally verbal. Psychomotor retardation. MENTAL STATUS EXAMINATION: The patient is alert and oriented times to self, place, and situation. Mood is dysphoric. Affect is constricted, congruent with mood. Thought process is concrete. Thought content, no suicidal or homicidal ideation. ASSESSMENT: Stable. PLAN: The patient will continue current medication. Provide the patient with reality orientation and supportive therapy. Angela Dubon M.D. DR: VICTORINA JOB#: [id number] CC:
--- NOTE | 2019-02-15 08:23 | Discharge Summary ---
Discharge Summary Discharge Summary _ DATE OF ADMISSION: 02/08/2019 DATE OF DISCHARGE: 02/14/2019 DISCHARGED BY: DR Valero REASON FOR ADMISSION: 63 years old female with past medical history of hypertension, COPD/asthma, diabetes mellitus, history of CVA, was brought to emergency room for evaluation due to generalized weakness and body aches. Patient had recent episodes of nausea and diarrhea. Patient reported multiple diarrheal stools. No blood in stool. Upon evaluation blood pressure was on the low side , but patient was afebrile. Laboratory work-up revealed mild leukocytosis with WBC 11.7, hemoglobin 10.7, hematocrit 25.2. Platelet count 188. Stable electrolytes. BUN 21, creatinine 1.3. Glucose 107. Lactic acid 1.3 Stable LFT. Troponin 0 0.001.EKG showed sinus rhythm, no acute ischemic changes. Albumin 2.4. Urinalysis revealed evidence of probable UTI, +2 protein. Chest x-ray demonstrated borderline cardiomegaly with mild pulmonary intestinal congestion. Patient subsequently admitted to telemetry floor for further management. CONSULTANTS: web interface developer Dr. Summers ID specialist Dr. Andrews maple products supervisor Dr. Hernandez ginner/oncologist Dr. Carcamo psychiatrist pain specialist Dr. Lang [facility] COURSE: Patient admitted to telemetry floor. Family Nurse closely followed. Serial troponin were negative. EKG revealed no acute ischemic changes. Echocardiogram demonstrated preserved ejection fraction of 55% with no evidence of wall motion abnormality. Mild left ventricular hypertrophy. Right ventricular systolic pressure of 14. Lipid panel was stable. Statin was continued. Blood pressure was managed with multiple antihypertensive regimen, including calcium channel bo, beta-bo and losartan. Patient noted to have bradycardia, which resolved with decreasing dose of metoprolol. Venous duplex bilateral lower extremity revealed acute thrombus in the right common femoral to the proximal superficial femoral veins. The superficial femoral mid-distal and calf veins were not well visualized. The popliteal vein was patent. Anticoagulation with Eliquis initiated. Receptionist Airline Lounge followed. Renal parameters and electrolytes were closely monitored. Electrolytes corrected as needed. 24 hours urine protein in range -18.7. Patient with evidence of proteinuria +2 in the urine. With IV hydration BUN from 21 down to 8 and creatinine from 1.3 down to 0.9. Receptionist [employer]line Lounge recommended to avoid nephrotoxic. Blood sugar was managed with sliding scale of insulin and remained stable. Hemoglobin A1c 5.6 -at goal. Patient started on empiric antibiotic for probable UTI. Urine culture revealed Klebsiella pneumonia. Blood culture revealed staph epidermidis. ID specialist closely followed. Blood culture were likely contaminated as per infectious disease specialist. Patient completed treatment for Klebsiella UTI while in the hospital. Stool studies were ordered, but not down since diarrhea stopped. Patient likely had episode of viral gastroenteritis , which resolved with symptomatic treatment. Water Softener Installer followed and advised to continue Eliquis as earlier initiated for acute DVT. Anemia work-up revealed evidence of anemia of iron deficiency with ferritin 67. Patient started on the IV Venofer while in the hospital. Hemoglobin hematocrit were closely monitored with goal to keep hemoglobin above 7. Prior to discharge hemoglobin, hematocrit. Anemia work-up also revealed evidence of folic acid deficiency. Patient started on folic acid supplement. GI specialist followed. Stool for occult blood was negative. Stool studies not collected since diarrhea stopped (as mentioned above). GI prophylaxis provided. Outpatient GI procedure recommended. Pain management provided as per pain specialist recommendation for multiply joint pain and osteoarthritis. Supportive care provided. Psychiatrist followed. Reality orientation and supportive therapy provided. Patient was continued with psychiatric medication regimen under psychiatrist observation. Patient clinically improved and was ready for discharge home FINAL DIAGNOSES: Klebsiella UTI Gastroenteritis Dehydration ( due to gastroenteritis) Acute DVT right common femoral vein Diabetes mellitus Possible diabetic nephropathy COPD History of CVA Hypertension Anemia of iron deficiency Proteinuria Hyperlipidemia Morbid obesity with a BMI 59.1 Current tobacco user Bradycardia likely related to beta-bo- resolved Multiply joint pain and osteoarthritis Schizoaffective disorder DISCHARGE MEDICATIONS: See Medication Reconciliation list. DISCHARGE INSTRUCTIONS: Patient was discharged home . Follow up with primary care provider in one week. I have been assigned to dictate discharge summary for this account. I was not involved in the patient's management. Elissa Oleary NP Feb 15, 2019 08:23
--- NOTE | 2019-02-15 11:56 | NUR ---
*-* INSURANCE *-* DISCHARGE SUMMARY HAVE BEEN FAXED TO: [facility] PERDUE: JACKI REF#[id number] F:[phone] P:[phone]
== END 2019-02-14 14:22 | disposition home or self-care (01) | DRG 463 ==
LOC: EDBD 21:21 → EDBEDREQ 22:50 → EMR 23:11 → 2W 23:29 → EDBEDREQ 02-09 00:26 → 2E 02-10 18:34
DX: N39.0 Urinary tract infection, site not specified (principal); E11.21 Type 2 diabetes mellitus with diabetic nephropathy; I95.9 Hypotension, unspecified; I82.411 Acute embolism and thrombosis of right femoral vein; E66.01 Morbid (severe) obesity due to excess calories; E83.51 Hypocalcemia; F25.9 Schizoaffective disorder, unspecified; B96.1 Klebsiella pneumoniae [K. pneumoniae] as the cause of diseases classified elsewhere; K52.9 Noninfective gastroenteritis and colitis, unspecified; Z68.43 Body mass index [BMI] 50.0-59.9, adult; E86.0 Dehydration; J44.9 Chronic obstructive pulmonary disease, unspecified; Z86.73 Personal history of transient ischemic attack (TIA), and cerebral infarction without residual deficits; I10 Essential (primary) hypertension; F17.200 Nicotine dependence, unspecified, uncomplicated; R00.1 Bradycardia, unspecified; T44.7X5A Adverse effect of beta-adrenoreceptor antagonists, initial encounter; M15.9 Polyosteoarthritis, unspecified; D63.8 Anemia in other chronic diseases classified elsewhere; E78.5 Hyperlipidemia, unspecified; I25.10 Atherosclerotic heart disease of native coronary artery without angina pectoris; F41.9 Anxiety disorder, unspecified; F32.9 Major depressive disorder, single episode, unspecified; D50.9 Iron deficiency anemia, unspecified
CPT/HCPCS: 36415; 71045; 80053; 80061; 81003; 81050; 82270; 82550; 82553; 82607; 82728; 82746; 82962; 82977; 83036; 83540; 83550; 83605; 83735; 83880; 84100; 84156; 84439; 84443; 84484; 84550; 85025; 86140; 87040; 87045; 87086; 87181; 87324; 93005; 93306; 93970; 96361; 96365; 96367; 99285